=== PATIENT | female | born 1950 | race Caucasian/White ===

== ENCOUNTER → 2018-03-02 | Day surgery (SDC) | payer MEDICARE, BC ==
[2018-03-01 17:40] LABS: BASOPHILS # (AUTO) 0.1 (0.0-0.1); BASOPHILS % 0.8 % (0.0-1.0); EOSINOPHILS # (AUTO) 1.1 (0.0-0.4); EOSINOPHILS % 10.3 % (0.0-6.0); HEMATOCRIT 31.2 % (34.2-44.1); LYMPHOCYTES # (AUTO) 2.9 (1.0-3.2); LYMPHOCYTES % 27.8 % (18.0-39.1); MEAN CORPUSCULAR HEMOGLOBIN 32.2 pg (28-32); MEAN CORPUSCULAR HGB CONC 32.1 g/dL (31-35); MEAN CORPUSCULAR VOLUME 100.3 fL (81-99); MONOCYTES # (AUTO) 0.6 (0.2-0.8); MONOCYTES % 5.5 % (4.4-11.3); NEUTROPHILS # (AUTO) 5.8 (2.1-6.9); NEUTROPHILS % 55.3 % (38.7-80.0); PLATELET COUNT 241 x10e3/uL (140-360); RED BLOOD COUNT 3.11 x10e6/uL (3.6-5.1)
[2018-03-01 18:00] LABS: ANION GAP 17.1 mmol/L (8-16); CALCIUM 8.3 mg/dL (8.4-10.2); CREATININE, SERUM 2.28 mg/dL (0.57-1.11); POTASSIUM 3.1 mmol/L (3.5-5.1)
[2018-03-01 18:18] LABS: INR 1.73
[2018-03-01 18:19] LABS: PARTIAL THROMBOPLASTIN TIME 38.3 seconds (23.8-35.5)
[~2018-03-02] VITALS: Ht 168.9 cm; Wt 97.5 kg
[~2018-03-02] MED LIST: ALLOPURINOL100 MG PO; AMIODARONE HCL200 MG PO; ATORVASTATIN CA20 MG PO; LISINOPRIL10 MG PO; LOPID600 MG PO; METOPROLOL SUCC50 MG PO; MIDAZOLAM HCL 2 MG/2 ML VIAL ONE; OMEPRAZOLE20 MG PO; PROPOFOL IV EMULSION 10 MG/ML 20 ML VIAL ONE; VITAMIN D1000 UNI1 PO; XARELTO20 MG PO; [UNRECOGNIZED DRUG - CODE] PO
[2018-03-02 10:25] VITALS: BP 138/82
--- NOTE | 2018-03-07 12:57 | Operative Report ---
DATE OF PROCEDURE: March 02, 2018 PROCEDURE PERFORMED: Direct-current cardioversion. PREPROCEDURE DIAGNOSIS: Paroxysmal atrial fibrillation. POSTPROCEDURE DIAGNOSIS: Paroxysmal atrial fibrillation. ESTIMATED BLOOD LOSS: 0 mL. SPECIMENS REMOVED: None. PROCEDURE IN DETAIL: After informed consent was obtained, the patient was brought to the cardiac catheterization laboratory in a fasting, nonsedated state. The patient received deep sedation with anesthesia with propofol. After adequate anesthesia, the patient underwent synchronized direct-current cardioversion at 200 joules, with prompt voodoo of normal sinus rhythm. The patient did not require transesophageal echocardiography as she has been on anticoagulation for approximately 2 months. The patient tolerated the procedure well with no immediate complications. She was transported back to her room in stable condition. Job#: [id number]
== END | disposition home or self-care (01) ==
LOC: CATH LAB 09:49
PROVIDERS: ATTEND Internal Medicine Cardiovascular Disease
DX: I48.0 Paroxysmal atrial fibrillation (principal); E11.22 Type 2 diabetes mellitus with diabetic chronic kidney disease; I12.9 Hypertensive chronic kidney disease with stage 1 through stage 4 chronic kidney disease, or unspecified chronic kidney disease; N18.4 Chronic kidney disease, stage 4 (severe); E78.2 Mixed hyperlipidemia; G47.33 Obstructive sleep apnea (adult) (pediatric); K21.9 Gastro-esophageal reflux disease without esophagitis; K44.9 Diaphragmatic hernia without obstruction or gangrene; Z01.810 Encounter for preprocedural cardiovascular examination; Z01.812 Encounter for preprocedural laboratory examination; Z79.02 Long term (current) use of antithrombotics/antiplatelets; Z68.34 Body mass index [BMI] 34.0-34.9, adult; Z87.891 Personal history of nicotine dependence; Z82.49 Family history of ischemic heart disease and other diseases of the circulatory system; Z83.3 Family history of diabetes mellitus
CPT/HCPCS: 36415; 80048; 85025; 85610; 85730; 92960; 93005; J2250

== ENCOUNTER 2019-09-03 10:13 | Observation (INO) | payer MEDICARE, BC ==
[~2019-09-03] VITALS: Ht 167.6 cm; Wt 118.1 kg
[~2019-09-03 10:13] MED LIST changes: -MIDAZOLAM HCL 2 MG/2 ML VIAL ONE; -PROPOFOL IV EMULSION 10 MG/ML 20 ML VIAL ONE
--- OUTSIDE RECORDS SUMMARY | 2019-09-03 10:16 | XMS REPORT ---
[facility] Address Unknown Phone Unavailable Care Team Providers Care Wildlife Removal Specialist Name Role Phone DAVIN ARMENDARIZ Unavailable Unavailable Payers Payer Name Policy Type Policy Number Effective Date Expiration Date Problems This patient has no known problems. Allergies, Adverse Reactions, Alerts Allergy Name Allergy Type Status Severity Reaction(s) Onset Date Inactive Date Treating Clinician Comments Penicillins DA Active 2018-11-24 00:00:00 morphine DA Active 2018-11-24 00:00:00 meperidine DA Active 2018-11-24 00:00:00 avocado DA [facility] 2018-11-24 00:00:00 avocado FA [facility] 2018-11-24 00:00:00 Medications This patient has no known medications. Results Test Description Test Time Test Comments Text Results Atomic Results Result Comments RENAL FUNCTION PANEL 2019-07-02 08:25:00 SODIUM (test code=NA) 139 mmol/L 136-145 POTASSIUM (test code=K) 4.6 mmol/L 3.5-5.1 CHLORIDE (test code=CL) 108.0 mmol/L 98-107 CARBON DIOXIDE (test code=CO2) 23.0 mmol/L 21-32 ANION GAP (test code=GAP) 12.6 10-20 GLUCOSE (test code=GLU) 128 mg/dL 74-106 BLOOD UREA NITROGEN (test code=BUN) 29 mg/dL 7-18 CREATININE (test code=CREAT) 2.40 mg/dL 0.55-1.02 Note change in reference range due to change in reagent. ALBUMIN (test code=ALB) 3.8 g/dL 3.4-5.0 CALCIUM (test code=CA) 9.1 mg/dL 8.5-10.1 PHOSPHORUS (test code=PHOS) 3.5 mg/dL 2.5-4.9 RENAL FUNCTION [id number] 08:20:00* Test Item Value Reference Range Comments SODIUM (test code=NA) 139 mmol/L 136-145 POTASSIUM (test code=K) 4.6 mmol/L 3.5-5.1 CHLORIDE (test code=CL) 108.0 mmol/L 98-107 CARBON DIOXIDE (test code=CO2) mmol/L 21-32 ANION GAP (test code=GAP) 10-20 GLUCOSE (test code=GLU) mg/dL 74-106 BLOOD UREA NITROGEN (test code=BUN) mg/dL 7-18 CREATININE (test code=CREAT) mg/dL 0.55-1.02 ALBUMIN (test code=ALB) g/dL 3.4-5.0 CALCIUM (test code=CA) mg/dL 8.5-10.1 PHOSPHORUS (test code=PHOS) mg/dL 2.5-4.9 RENAL FUNCTION [id number] 20:06:00* Test Item Value Reference Range Comments SODIUM (test code=NA) 142 mmol/L 136-145 POTASSIUM (test code=K) 4.4 mmol/L 3.5-5.1 CHLORIDE (test code=CL) 109.0 mmol/L 98-107 CARBON DIOXIDE (test code=CO2) 22.0 mmol/L 21-32 ANION GAP (test code=GAP) 15.4 10-20 GLUCOSE (test code=GLU) 83 mg/dL 74-106 BLOOD UREA NITROGEN (test code=BUN) 29 mg/dL 7-18 CREATININE (test code=CREAT) 2.28 mg/dL 0.55-1.02 Note change in reference range due to change in reagent. ALBUMIN (test code=ALB) 3.8 g/dL 3.4-5.0 CALCIUM (test code=CA) 8.8 mg/dL 8.5-10.1 PHOSPHORUS (test code=PHOS) 3.1 mg/dL 2.5-4.9 URIC [id number] 20:06:00* Test Item Value Reference Range Comments URIC ACID (test code=URIC) 5.5 mg/dL 2.6-7.2 VITD,25 OH [id number] 20:06:00* Test Item Value Reference Range Comments VITAMIN D 25-HYDROXY (test code=VITD25) 43 ng/mL () Reference Range:All Ages: Target levels 30 - 100Test performed at: [facility] [address] [address] VITD,25-OH, D2 (test code=CUON00N6) 6.0 ng/mL () VITD,25-OH, D3 (test code=ZVPR76J7) 37 ng/mL () Performed At: [facility] [place], [place] [id number] Wing MD Ph:[phone] RENAL FUNCTION [id number] 15:22:00* Test Item Value Reference Range Comments SODIUM (test code=NA) 142 mmol/L 136-145 POTASSIUM (test code=K) 4.4 mmol/L 3.5-5.1 CHLORIDE (test code=CL) 109.0 mmol/L 98-107 CARBON DIOXIDE (test code=CO2) 22.0 mmol/L 21-32 ANION GAP (test code=GAP) 15.4 10-20 GLUCOSE (test code=GLU) 83 mg/dL 74-106 BLOOD UREA NITROGEN (test code=BUN) 29 mg/dL 7-18 CREATININE (test code=CREAT) 2.28 mg/dL 0.55-1.02 Note change in reference range due to change in reagent. ALBUMIN (test code=ALB) 3.8 g/dL 3.4-5.0 CALCIUM (test code=CA) 8.8 mg/dL 8.5-10.1 PHOSPHORUS (test code=PHOS) 3.1 mg/dL 2.5-4.9 URIC [id number] 15:22:00* Test Item Value Reference Range Comments URIC ACID (test code=URIC) 5.5 mg/dL 2.6-7.2 VITD,25 OH [id number] 15:22:00* Test Item Value Reference Range Comments VITAMIN D 25-HYDROXY (test code=VITD25) ng/mL 30-100 VITD,25-OH, D2 (test code=CCCD72I1) ng/mL VITD,25-OH, D3 (test code=ALFD95H9) ng/mL RENAL FUNCTION [id number] 15:10:00* Test Item Value Reference Range Comments SODIUM (test code=NA) 142 mmol/L 136-145 POTASSIUM (test code=K) 4.4 mmol/L 3.5-5.1 CHLORIDE (test code=CL) 109.0 mmol/L 98-107 CARBON DIOXIDE (test code=CO2) mmol/L 21-32 ANION GAP (test code=GAP) 10-20 GLUCOSE (test code=GLU) mg/dL 74-106 BLOOD UREA NITROGEN (test code=BUN) mg/dL 7-18 CREATININE (test code=CREAT) mg/dL 0.55-1.02 ALBUMIN (test code=ALB) g/dL 3.4-5.0 CALCIUM (test code=CA) mg/dL 8.5-10.1 PHOSPHORUS (test code=PHOS) mg/dL 2.5-4.9 URIC [id number] 15:10:00* Test Item Value Reference Range Comments URIC ACID (test code=URIC) mg/dL 2.6-7.2 VITD,25 OH [id number] 15:10:00* Test Item Value Reference Range Comments VITAMIN D 25-HYDROXY (test code=VITD25) ng/mL 30-100 VITD,25-OH, D2 (test code=OMQD82R7) ng/mL VITD,25-OH, D3 (test code=GFIH97H9) ng/mL PTH INTACT [id number] 12:36:00* Test Item Value Reference Range Comments CALCIUM (test code=CA) 9.2 mg/dL 8.5-10.1 PARATHYROID HORMONE INTACT (test code=PARAI) 255.40 pgram/mL 8.4-88 UR PROTEIN/CREATININE [id number] 12:23:00* Test Item Value Reference Range Comments UR PROTEIN RANDOM (test code=PROTU) 210.6 mg/dL 0.0-11.9 Protein levels may be falsely elevated in patients withelevated level of aminoglycoside antibiotics in CSF and inhighly concentrated urine specimens. If false elevation issuspected, contact lab for alternated testing technique. UR CREATININE RANDOM (test code=CREATU) 120.0 mg/dL 30-125 PROTEIN/CREATININE RATIO (test code=P/CRATIO) 1.76 RATIO 0.0-0.20 PTH INTACT [id number] 12:01:00* Test Item Value Reference Range Comments CALCIUM (test code=CA) 9.2 mg/dL 8.5-10.1 PARATHYROID HORMONE INTACT (test code=PARAI) pgram/mL 8.4-88 CBC W/AUTO [id number] 10:40:00* Test Item Value Reference Range Comments WHITE BLOOD CELL (test code=WBC) 6.2 K/mm3 4.5-12.5 RED BLOOD CELL (test code=RBC) 3.31 mill/mm3 3.7-5.2 HEMOGLOBIN (test code=HGB) 10.3 gram/dL 11.5-15.5 HEMATOCRIT (test code=HCT) 33.7 % 36.0-46.0 MEAN CELL VOLUME (test code=MCV) 101.8 fL 80-98 MEAN CELL HGB (test code=MCH) 31.1 picogram 27.0-33.0 MEAN CELL HGB CONCETRATION (test code=MCHC) 30.6 gram/dL 33.0-36.0 RED CELL DISTRIBUTION WIDTH (test code=RDW) 13.2 % 11.6-16.2 RED CELL DISTRIBUTION WIDTH SD (test code=RDW-SD) 48.9 fL 37.0-51.0 PLATELET COUNT (test code=PLT) 241 K/mm3 150-450 MEAN PLATELET VOLUME (test code=MPV) 12.9 fL 6.7-11.0 NEUTROPHIL % (test code=NT%) 62.4 % 39.0-69.0 IMMATURE GRANULOCYTE % (test code=IG%) 0.3 % 0.0-5.0 LYMPHOCYTE % (test code=LY%) 21.9 % 25.0-55.0 MONOCYTE % (test code=MO%) 7.4 % 0.0-10.0 EOSINOPHIL % (test code=EO%) 7.7 % 0.0-5.0 BASOPHIL % (test code=BA%) 0.3 % 0.0-1.0 NUCLEATED RBC % (test code=NRBC%) 0.0 % 0-0 NEUTROPHIL # (test code=NT#) 3.88 K/mm3 1.8-7.7 IMMATURE GRANULOCYTE # (test code=IG#) 0.02 x10 3/uL 0-0.03 LYMPHOCYTE # (test code=LY#) 1.36 K/mm3 1.0-5.0 MONOCYTE # (test code=MO#) 0.46 K/mm3 0-0.8 EOSINOPHIL # (test code=EO#) 0.48 K/mm3 0.0-0.5 BASOPHIL # (test code=BA#) 0.02 K/mm3 0.0-0.2 NUCLEATED RBC # (test code=NRBC#) 0.00 K/mm3 0.0-0.1 [id number] 04:53:00* Test Item Value Reference Range Comments HEMOGLOBIN (test code=HGB) 9.9 gram/dL 11.5-15.5 [id number] 04:53:00* Test Item Value Reference Range Comments HEMATOCRIT (test code=HCT) 31.2 % 36.0-46.0 HGB [id number] 18:09:00* Test Item Value Reference Range Comments HEMOGLOBIN (test code=HGB) 9.8 gram/dL 11.5-15.5 HEMATOCRIT (test code=HCT) 30.2 % 36.0-46.0 PROTHROMBIN [id number] 17:00:00* Test Item Value Reference Range Comments PROTHROMBIN TIME PATIENT (test code=PTP) 13.5 seconds 9.0-14.0 INTERNATIONAL NORMAL RATIO (test code=INR) 1.2 0.8-1.2 The therapeutic range for oral anticoagulant therapy formost indications is an international normalized ratio (INR)of between 2.0 and 3.0. The recommended therapeutic INRrange for various clinical situations is listed below: Clinical Situation INR range Pulmonary e mbolism treatment (2.0-3.0)Venous thrombosis treatmentVenous thrombosis prophylaxis (high risk surgery)Prevention of systemic embolism from: Acute myocardial infarction Valvular heart disease Atrial fibrillation Mechanical prosthetic heart valves (2.5-3.5) IS PATIENT ON ANTICOAGULANTS? NSPECIMEN COMMENTS: STATCOMMENTS TO RENTAL COUNTER CLERK: STATCB W/AUTO [id number] 16:54:00* Test Item Value Reference Range Comments WHITE BLOOD CELL (test code=WBC) 7.7 K/mm3 4.5-12.5 RED BLOOD CELL (test code=RBC) 3.15 mill/mm3 3.7-5.2 HEMOGLOBIN (test code=HGB) 10.0 gram/dL 11.5-15.5 HEMATOCRIT (test code=HCT) 31.8 % 36.0-46.0 MEAN CELL VOLUME (test code=MCV) 101.0 fL 80-98 MEAN CELL HGB (test code=MCH) 31.7 picogram 27.0-33.0 MEAN CELL HGB CONCETRATION (test code=MCHC) 31.4 gram/dL 33.0-36.0 RED CELL DISTRIBUTION WIDTH (test code=RDW) 13.5 % 11.6-16.2 RED CELL DISTRIBUTION WIDTH SD (test code=RDW-SD) 49.3 fL 37.0-51.0 PLATELET COUNT (test code=PLT) 258 K/mm3 150-450 MEAN PLATELET VOLUME (test code=MPV) 13.1 fL 6.7-11.0 NEUTROPHIL % (test code=NT%) 66.1 % 39.0-69.0 IMMATURE GRANULOCYTE % (test code=IG%) 0.5 % 0.0-5.0 LYMPHOCYTE % (test code=LY%) 19.6 % 25.0-55.0 MONOCYTE % (test code=MO%) 7.0 % 0.0-10.0 EOSINOPHIL % (test code=EO%) 6.1 % 0.0-5.0 BASOPHIL % (test code=BA%) 0.7 % 0.0-1.0 NUCLEATED RBC % (test code=NRBC%) 0.0 % 0-0 NEUTROPHIL # (test code=NT#) 5.06 K/mm3 1.8-7.7 IMMATURE GRANULOCYTE # (test code=IG#) 0.04 x10 3/uL 0-0.03 LYMPHOCYTE # (test code=LY#) 1.50 K/mm3 1.0-5.0 MONOCYTE # (test code=MO#) 0.54 K/mm3 0-0.8 EOSINOPHIL # (test code=EO#) 0.47 K/mm3 0.0-0.5 BASOPHIL # (test code=BA#) 0.05 K/mm3 0.0-0.2 NUCLEATED RBC # (test code=NRBC#) 0.00 K/mm3 0.0-0.1 SPECIMEN COMMENTS: STATCOMMENTS TO RENTAL COUNTER CLERK: STATCOMPREHENSIVE METABOLIC [id number] 16:52:00* Test Item Value Reference Range Comments SODIUM (test code=NA) 141 mmol/L 136-145 POTASSIUM (test code=K) 4.5 mmol/L 3.5-5.1 CHLORIDE (test code=CL) 109.0 mmol/L 98-107 CARBON DIOXIDE (test code=CO2) 24.0 mmol/L 21-32 ANION GAP (test code=GAP) 12.5 10-20 GLUCOSE (test code=GLU) 114 mg/dL 74-106 BLOOD UREA NITROGEN (test code=BUN) 32 mg/dL 7-18 GLOMERULAR FILTRATION RATE (test code=GFR) 20 mL/min >=60 Estimated GFR by using Modified MDRD formula.Chronic kidney disease is defined as either kidney damageor GFR <60 mL/min/1.73 m2 for >3 months. CREATININE (test code=CREAT) 2.40 mg/dL 0.55-1.02 Note change in reference range due to change in reagent. BUN/CREATININE RATIO (test code=BUN/CREA) 13.3 10-20 TOTAL PROTEIN (test code=PROT) 7.5 gram/dL 6.4-8.2 ALBUMIN (test code=ALB) 3.5 g/dL 3.4-5.0 GLOBULIN (test code=GLOB) 4.0 gram/dL 2.7-4.2 ALBUMIN/GLOBULIN RATIO (test code=A/G) 0.9 0.75-1.50 CALCIUM (test code=CA) 8.7 mg/dL 8.5-10.1 BILIRUBIN TOTAL (test code=BILT) 0.20 mg/dL 0.0-1.0 SGOT/AST (test code=AST) 18 IUnit/L 15-37 SGPT/ALT (test code=ALT) 20 IUnit/L 12-78 ALKALINE PHOSPHATASE TOTAL (test code=ALKP) 80 IUnit/L 45-117 Note change in reference range due to change in reagent. SPECIMEN COMMENTS: STATCOMMENTS TO RENTAL COUNTER CLERK: STATCOMPREHENSIVE METABOLIC [id number] 16:48:00* Test Item Value Reference Range Comments SODIUM (test code=NA) 141 mmol/L 136-145 POTASSIUM (test code=K) 4.5 mmol/L 3.5-5.1 CHLORIDE (test code=CL) 109.0 mmol/L 98-107 CARBON DIOXIDE (test code=CO2) mmol/L 21-32 ANION GAP (test code=GAP) 10-20 GLUCOSE (test code=GLU) mg/dL 74-106 BLOOD UREA NITROGEN (test code=BUN) mg/dL 7-18 GLOMERULAR FILTRATION RATE (test code=GFR) mL/min >=60 CREATININE (test code=CREAT) mg/dL 0.55-1.02 BUN/CREATININE RATIO (test code=BUN/CREA) 10-20 TOTAL PROTEIN (test code=PROT) gram/dL 6.4-8.2 ALBUMIN (test code=ALB) g/dL 3.4-5.0 GLOBULIN (test code=GLOB) gram/dL 2.7-4.2 ALBUMIN/GLOBULIN RATIO (test code=A/G) 0.75-1.50 CALCIUM (test code=CA) mg/dL 8.5-10.1 BILIRUBIN TOTAL (test code=BILT) mg/dL 0.0-1.0 SGOT/AST (test code=AST) IUnit/L 15-37 SGPT/ALT (test code=ALT) IUnit/L 12-78 ALKALINE PHOSPHATASE TOTAL (test code=ALKP) IUnit/L 45-117 SPECIMEN COMMENTS: STATCOMMENTS TO RENTAL COUNTER CLERK: STATCOMPREHENSIVE METABOLIC [id number] 16:48:00* Test Item Value Reference Range Comments SODIUM (test code=NA) 141 mmol/L 136-145 POTASSIUM (test code=K) 4.5 mmol/L 3.5-5.1 CHLORIDE (test code=CL) 109.0 mmol/L 98-107 CARBON DIOXIDE (test code=CO2) mmol/L 21-32 ANION GAP (test code=GAP) 10-20 GLUCOSE (test code=GLU) mg/dL 74-106 BLOOD UREA NITROGEN (test code=BUN) mg/dL 7-18 GLOMERULAR FILTRATION RATE (test code=GFR) mL/min >=60 CREATININE (test code=CREAT) mg/dL 0.55-1.02 BUN/CREATININE RATIO (test code=BUN/CREA) 10-20 TOTAL PROTEIN (test code=PROT) gram/dL 6.4-8.2 ALBUMIN (test code=ALB) g/dL 3.4-5.0 GLOBULIN (test code=GLOB) gram/dL 2.7-4.2 ALBUMIN/GLOBULIN RATIO (test code=A/G) 0.75-1.50 CALCIUM (test code=CA) mg/dL 8.5-10.1 BILIRUBIN TOTAL (test code=BILT) mg/dL 0.0-1.0 SGOT/AST (test code=AST) IUnit/L 15-37 SGPT/ALT (test code=ALT) IUnit/L 12-78 ALKALINE PHOSPHATASE TOTAL (test code=ALKP) IUnit/L 45-117 SPECIMEN COMMENTS: STATCOMMENTS TO RENTAL COUNTER CLERK: STAT- XR CHEST 1 [id number] 08:44:00 FAX: Sean Schwartz [phone] [place]: [address] St: REG Name: ROLANDO FONSECA [facility] : [birth year] Age/S: 68/F Nabeel [facility] Unit #: [id number] Loc: [place] [address] Phys: Haroon Foreman MD Acct: [id number] Dis Date: Status: REG [facility] PHONE #: [phone] Exam Date: 11/28/2018813 FAX #: [phone] Reason: line placement EXAMS: CPT CODE: [id number] XR CHEST 1 V 17035 HISTORY: Line placement. COMPARISON: None available. Right Port-A-Cath with the tip pr ojected over the SVC from a subclavian approach. No pneumothorax. No acute infiltrates, effusion or congestion is noted. Mild scarring. Cardiomegaly. IMPRESSION: Right sub clavian Port-A-Cath with the tip projected over the SVC without pneumoth orax. No acute infiltrates, effusion or congestion. * * at 0844 Reported and signed by: Juan Luis Spring M.D. CC: Sean Nguyen DO Technologist: Monica munoz RT(R) Trnscrd Date/Time/By: 11/28/2018 (0 844) : By: [email or web address] Orig Print D/T: S: 11/28/2018 (0847) PAGE 1 Signed Report [id number] 07:23:00* Test Item Value Reference Range Comments GLUBED (test code=GLUBED) 107 mg/dL 74-106 Performed by certified bending frame operator at [facility] BASIC METABOLIC [id number] 14:26:00* Test Item Value Reference Range Comments SODIUM (test code=NA) 142 mmol/L 136-145 POTASSIUM (test code=K) 4.4 mmol/L 3.5-5.1 CHLORIDE (test code=CL) 106.0 mmol/L 98-107 CARBON DIOXIDE (test code=CO2) 25.0 mmol/L 21-32 ANION GAP (test code=GAP) 15.4 10-20 GLUCOSE (test code=GLU) 108 mg/dL 74-106 BLOOD UREA NITROGEN (test code=BUN) 29 mg/dL 7-18 GLOMERULAR FILTRATION RATE (test code=GFR) 20 mL/min >=60 Estimated GFR by using Modified MDRD formula.Chronic kidney disease is defined as either kidney damageor GFR <60 mL/min/1.73 m2 for >3 months. CREATININE (test code=CREAT) 2.40 mg/dL 0.55-1.02 Note change in reference range due to change in reagent. BUN/CREATININE RATIO (test code=BUN/CREA) 12.1 10-20 CALCIUM (test code=CA) 9.2 mg/dL 8.5-10.1 BASIC METABOLIC [id number] 13:58:00* Test Item Value Reference Range Comments SODIUM (test code=NA) mmol/L 136-145 POTASSIUM (test code=K) mmol/L 3.5-5.1 CHLORIDE (test code=CL) mmol/L 98-107 CARBON DIOXIDE (test code=CO2) 25.0 mmol/L 21-32 ANION GAP (test code=GAP) 10-20 GLUCOSE (test code=GLU) 108 mg/dL 74-106 BLOOD UREA NITROGEN (test code=BUN) 29 mg/dL 7-18 GLOMERULAR FILTRATION RATE (test code=GFR) mL/min >=60 CREATININE (test code=CREAT) mg/dL 0.55-1.02 BUN/CREATININE RATIO (test code=BUN/CREA) 10-20 CALCIUM (test code=CA) 9.2 mg/dL 8.5-10.1 CBC W/AUTO [id number] 12:16:00* Test Item Value Reference Range Comments WHITE BLOOD CELL (test code=WBC) 7.5 K/mm3 4.5-12.5 RED BLOOD CELL (test code=RBC) 3.52 mill/mm3 3.7-5.2 HEMOGLOBIN (test code=HGB) 11.1 gram/dL 11.5-15.5 HEMATOCRIT (test code=HCT) 35.6 % 36.0-46.0 MEAN CELL VOLUME (test code=MCV) 101.1 fL 80-98 MEAN CELL HGB (test code=MCH) 31.5 picogram 27.0-33.0 MEAN CELL HGB CONCETRATION (test code=MCHC) 31.2 gram/dL 33.0-36.0 RED CELL DISTRIBUTION WIDTH (test code=RDW) 13.6 % 11.6-16.2 RED CELL DISTRIBUTION WIDTH SD (test code=RDW-SD) 50.7 fL 37.0-51.0 PLATELET COUNT (test code=PLT) 296 K/mm3 150-450 MEAN PLATELET VOLUME (test code=MPV) 13.0 fL 6.7-11.0 NEUTROPHIL % (test code=NT%) 62.3 % 39.0-69.0 IMMATURE GRANULOCYTE % (test code=IG%) 0.4 % 0.0-5.0 LYMPHOCYTE % (test code=LY%) 22.2 % 25.0-55.0 MONOCYTE % (test code=MO%) 6.3 % 0.0-10.0 EOSINOPHIL % (test code=EO%) 8.4 % 0.0-5.0 BASOPHIL % (test code=BA%) 0.4 % 0.0-1.0 NUCLEATED RBC % (test code=NRBC%) 0.0 % 0-0 NEUTROPHIL # (test code=NT#) 4.68 K/mm3 1.8-7.7 IMMATURE GRANULOCYTE # (test code=IG#) 0.03 x10 3/uL 0-0.03 LYMPHOCYTE # (test code=LY#) 1.67 K/mm3 1.0-5.0 MONOCYTE # (test code=MO#) 0.47 K/mm3 0-0.8 EOSINOPHIL # (test code=EO#) 0.63 K/mm3 0.0-0.5 BASOPHIL # (test code=BA#) 0.03 K/mm3 0.0-0.2 NUCLEATED RBC # (test code=NRBC#) 0.00 K/mm3 0.0-0.1 MANUAL DIFF REQUIRED (test code=MDIFF) NO, ONLY SCAN NEEDED DIFFERENTIAL [id number] 12:16:00* Test Item Value Reference Range Comments STAIN ACCEPTABILITY (test code=STN ACCEPTABLE) STAIN ACCEPTABLE PLATELET ESTIMATE (test code=PLTEST) ADEQUATE PLATELET MORPHOLOGY (test code=PLTMORPH) NORMAL CBC W/AUTO [id number] 12:11:00* Test Item Value Reference Range Comments WHITE BLOOD CELL (test code=WBC) 7.5 K/mm3 4.5-12.5 RED BLOOD CELL (test code=RBC) 3.52 mill/mm3 3.7-5.2 HEMOGLOBIN (test code=HGB) 11.1 gram/dL 11.5-15.5 HEMATOCRIT (test code=HCT) 35.6 % 36.0-46.0 MEAN CELL VOLUME (test code=MCV) 101.1 fL 80-98 MEAN CELL HGB (test code=MCH) 31.5 picogram 27.0-33.0 MEAN CELL HGB CONCETRATION (test code=MCHC) 31.2 gram/dL 33.0-36.0 RED CELL DISTRIBUTION WIDTH (test code=RDW) 13.6 % 11.6-16.2 RED CELL DISTRIBUTION WIDTH SD (test code=RDW-SD) 50.7 fL 37.0-51.0 PLATELET COUNT (test code=PLT) 296 K/mm3 150-450 MEAN PLATELET VOLUME (test code=MPV) 13.0 fL 6.7-11.0 NEUTROPHIL % (test code=NT%) 62.3 % 39.0-69.0 IMMATURE GRANULOCYTE % (test code=IG%) 0.4 % 0.0-5.0 LYMPHOCYTE % (test code=LY%) 22.2 % 25.0-55.0 MONOCYTE % (test code=MO%) 6.3 % 0.0-10.0 EOSINOPHIL % (test code=EO%) 8.4 % 0.0-5.0 BASOPHIL % (test code=BA%) 0.4 % 0.0-1.0 NUCLEATED RBC % (test code=NRBC%) 0.0 % 0-0 NEUTROPHIL # (test code=NT#) 4.68 K/mm3 1.8-7.7 IMMATURE GRANULOCYTE # (test code=IG#) 0.03 x10 3/uL 0-0.03 LYMPHOCYTE # (test code=LY#) 1.67 K/mm3 1.0-5.0 MONOCYTE # (test code=MO#) 0.47 K/mm3 0-0.8 EOSINOPHIL # (test code=EO#) 0.63 K/mm3 0.0-0.5 BASOPHIL # (test code=BA#) 0.03 K/mm3 0.0-0.2 NUCLEATED RBC # (test code=NRBC#) 0.00 K/mm3 0.0-0.1 MANUAL DIFF REQUIRED (test code=MDIFF) NO, ONLY SCAN NEEDED DIFFERENTIAL [id number] 12:11:00* Test Item Value Reference Range Comments STAIN ACCEPTABILITY (test code=STN ACCEPTABLE) STAIN ACCEPTABLE POLYCHROMASIA (test code=POLC) PLATELET ESTIMATE (test code=PLTEST) ADEQUATE PLATELET MORPHOLOGY (test code=PLTMORPH) NORMAL CBC W/AUTO [id number] 11:22:00* Test Item Value Reference Range Comments WHITE BLOOD CELL (test code=WBC) 7.5 K/mm3 4.5-12.5 RED BLOOD CELL (test code=RBC) 3.52 mill/mm3 3.7-5.2 HEMOGLOBIN (test code=HGB) 11.1 gram/dL 11.5-15.5 HEMATOCRIT (test code=HCT) 35.6 % 36.0-46.0 MEAN CELL VOLUME (test code=MCV) 101.1 fL 80-98 MEAN CELL HGB (test code=MCH) 31.5 picogram 27.0-33.0 MEAN CELL HGB CONCETRATION (test code=MCHC) 31.2 gram/dL 33.0-36.0 RED CELL DISTRIBUTION WIDTH (test code=RDW) 13.6 % 11.6-16.2 RED CELL DISTRIBUTION WIDTH SD (test code=RDW-SD) 50.7 fL 37.0-51.0 PLATELET COUNT (test code=PLT) 296 K/mm3 150-450 MEAN PLATELET VOLUME (test code=MPV) 13.0 fL 6.7-11.0 NEUTROPHIL % (test code=NT%) 62.3 % 39.0-69.0 IMMATURE GRANULOCYTE % (test code=IG%) 0.4 % 0.0-5.0 LYMPHOCYTE % (test code=LY%) 22.2 % 25.0-55.0 MONOCYTE % (test code=MO%) 6.3 % 0.0-10.0 EOSINOPHIL % (test code=EO%) 8.4 % 0.0-5.0 BASOPHIL % (test code=BA%) 0.4 % 0.0-1.0 NUCLEATED RBC % (test code=NRBC%) 0.0 % 0-0 NEUTROPHIL # (test code=NT#) 4.68 K/mm3 1.8-7.7 IMMATURE GRANULOCYTE # (test code=IG#) 0.03 x10 3/uL 0-0.03 LYMPHOCYTE # (test code=LY#) 1.67 K/mm3 1.0-5.0 MONOCYTE # (test code=MO#) 0.47 K/mm3 0-0.8 EOSINOPHIL # (test code=EO#) 0.63 K/mm3 0.0-0.5 BASOPHIL # (test code=BA#) 0.03 K/mm3 0.0-0.2 NUCLEATED RBC # (test code=NRBC#) 0.00 K/mm3 0.0-0.1 MANUAL DIFF REQUIRED (test code=MDIFF) NO, ONLY SCAN NEEDED DIFFERENTIAL [id number] 11:22:00* Test Item Value Reference Range Comments STAIN ACCEPTABILITY (test code=STN ACCEPTABLE) CABOT RINGS (test code=CAB) MORPHOLOGY COMMENT (test code=MOC) PLATELET ESTIMATE (test code=PLTEST) PLATELET MORPHOLOGY (test code=PLTMORPH) CBC W/AUTO [id number] 11:22:00* Test Item Value Reference Range Comments WHITE BLOOD CELL (test code=WBC) 7.5 K/mm3 4.5-12.5 RED BLOOD CELL (test code=RBC) 3.52 mill/mm3 3.7-5.2 HEMOGLOBIN (test code=HGB) 11.1 gram/dL 11.5-15.5 HEMATOCRIT (test code=HCT) 35.6 % 36.0-46.0 MEAN CELL VOLUME (test code=MCV) 101.1 fL 80-98 MEAN CELL HGB (test code=MCH) 31.5 picogram 27.0-33.0 MEAN CELL HGB CONCETRATION (test code=MCHC) 31.2 gram/dL 33.0-36.0 RED CELL DISTRIBUTION WIDTH (test code=RDW) 13.6 % 11.6-16.2 RED CELL DISTRIBUTION WIDTH SD (test code=RDW-SD) 50.7 fL 37.0-51.0 PLATELET COUNT (test code=PLT) 296 K/mm3 150-450 MEAN PLATELET VOLUME (test code=MPV) 13.0 fL 6.7-11.0 NEUTROPHIL % (test code=NT%) 62.3 % 39.0-69.0 IMMATURE GRANULOCYTE % (test code=IG%) 0.4 % 0.0-5.0 LYMPHOCYTE % (test code=LY%) 22.2 % 25.0-55.0 MONOCYTE % (test code=MO%) 6.3 % 0.0-10.0 EOSINOPHIL % (test code=EO%) 8.4 % 0.0-5.0 BASOPHIL % (test code=BA%) 0.4 % 0.0-1.0 NUCLEATED RBC % (test code=NRBC%) 0.0 % 0-0 NEUTROPHIL # (test code=NT#) 4.68 K/mm3 1.8-7.7 IMMATURE GRANULOCYTE # (test code=IG#) 0.03 x10 3/uL 0-0.03 LYMPHOCYTE # (test code=LY#) 1.67 K/mm3 1.0-5.0 MONOCYTE # (test code=MO#) 0.47 K/mm3 0-0.8 EOSINOPHIL # (test code=EO#) 0.63 K/mm3 0.0-0.5 BASOPHIL # (test code=BA#) 0.03 K/mm3 0.0-0.2 NUCLEATED RBC # (test code=NRBC#) 0.00 K/mm3 0.0-0.1 MANUAL DIFF REQUIRED (test code=MDIFF) NO, ONLY SCAN NEEDED DIFFERENTIAL [id number] 11:22:00* Test Item Value Reference Range Comments STAIN ACCEPTABILITY (test code=STN ACCEPTABLE) CABOT RINGS (test code=CAB) MORPHOLOGY COMMENT (test code=MOC) PLATELET ESTIMATE (test code=PLTEST) PLATELET MORPHOLOGY (test code=PLTMORPH) CBC W/AUTO [id number] 11:22:00* Test Item Value Reference Range Comments WHITE BLOOD CELL (test code=WBC) 7.5 K/mm3 4.5-12.5 RED BLOOD CELL (test code=RBC) 3.52 mill/mm3 3.7-5.2 HEMOGLOBIN (test code=HGB) 11.1 gram/dL 11.5-15.5 HEMATOCRIT (test code=HCT) 35.6 % 36.0-46.0 MEAN CELL VOLUME (test code=MCV) 101.1 fL 80-98 MEAN CELL HGB (test code=MCH) 31.5 picogram 27.0-33.0 MEAN CELL HGB CONCETRATION (test code=MCHC) 31.2 gram/dL 33.0-36.0 RED CELL DISTRIBUTION WIDTH (test code=RDW) 13.6 % 11.6-16.2 RED CELL DISTRIBUTION WIDTH SD (test code=RDW-SD) 50.7 fL 37.0-51.0 PLATELET COUNT (test code=PLT) 296 K/mm3 150-450 MEAN PLATELET VOLUME (test code=MPV) 13.0 fL 6.7-11.0 NEUTROPHIL % (test code=NT%) 62.3 % 39.0-69.0 IMMATURE GRANULOCYTE % (test code=IG%) 0.4 % 0.0-5.0 LYMPHOCYTE % (test code=LY%) 22.2 % 25.0-55.0 MONOCYTE % (test code=MO%) 6.3 % 0.0-10.0 EOSINOPHIL % (test code=EO%) 8.4 % 0.0-5.0 BASOPHIL % (test code=BA%) 0.4 % 0.0-1.0 NUCLEATED RBC % (test code=NRBC%) 0.0 % 0-0 NEUTROPHIL # (test code=NT#) 4.68 K/mm3 1.8-7.7 IMMATURE GRANULOCYTE # (test code=IG#) 0.03 x10 3/uL 0-0.03 LYMPHOCYTE # (test code=LY#) 1.67 K/mm3 1.0-5.0 MONOCYTE # (test code=MO#) 0.47 K/mm3 0-0.8 EOSINOPHIL # (test code=EO#) 0.63 K/mm3 0.0-0.5 BASOPHIL # (test code=BA#) 0.03 K/mm3 0.0-0.2 NUCLEATED RBC # (test code=NRBC#) 0.00 K/mm3 0.0-0.1 MANUAL DIFF REQUIRED (test code=MDIFF) NO, ONLY SCAN NEEDED DIFFERENTIAL [id number] 11:22:00* Test Item Value Reference Range Comments STAIN ACCEPTABILITY (test code=STN ACCEPTABLE) MORPHOLOGY COMMENT (test code=MOC) PLATELET ESTIMATE (test code=PLTEST) PLATELET MORPHOLOGY (test code=PLTMORPH) CBC W/AUTO [id number] 11:22:00* Test Item Value Reference Range Comments WHITE BLOOD CELL (test code=WBC) 7.5 K/mm3 4.5-12.5 RED BLOOD CELL (test code=RBC) 3.52 mill/mm3 3.7-5.2 HEMOGLOBIN (test code=HGB) 11.1 gram/dL 11.5-15.5 HEMATOCRIT (test code=HCT) 35.6 % 36.0-46.0 MEAN CELL VOLUME (test code=MCV) 101.1 fL 80-98 MEAN CELL HGB (test code=MCH) 31.5 picogram 27.0-33.0 MEAN CELL HGB CONCETRATION (test code=MCHC) 31.2 gram/dL 33.0-36.0 RED CELL DISTRIBUTION WIDTH (test code=RDW) 13.6 % 11.6-16.2 RED CELL DISTRIBUTION WIDTH SD (test code=RDW-SD) 50.7 fL 37.0-51.0 PLATELET COUNT (test code=PLT) 296 K/mm3 150-450 MEAN PLATELET VOLUME (test code=MPV) 13.0 fL 6.7-11.0 NEUTROPHIL % (test code=NT%) 62.3 % 39.0-69.0 IMMATURE GRANULOCYTE % (test code=IG%) 0.4 % 0.0-5.0 LYMPHOCYTE % (test code=LY%) 22.2 % 25.0-55.0 MONOCYTE % (test code=MO%) 6.3 % 0.0-10.0 EOSINOPHIL % (test code=EO%) 8.4 % 0.0-5.0 BASOPHIL % (test code=BA%) 0.4 % 0.0-1.0 NUCLEATED RBC % (test code=NRBC%) 0.0 % 0-0 NEUTROPHIL # (test code=NT#) 4.68 K/mm3 1.8-7.7 IMMATURE GRANULOCYTE # (test code=IG#) 0.03 x10 3/uL 0-0.03 LYMPHOCYTE # (test code=LY#) 1.67 K/mm3 1.0-5.0 MONOCYTE # (test code=MO#) 0.47 K/mm3 0-0.8 EOSINOPHIL # (test code=EO#) 0.63 K/mm3 0.0-0.5 BASOPHIL # (test code=BA#) 0.03 K/mm3 0.0-0.2 NUCLEATED RBC # (test code=NRBC#) 0.00 K/mm3 0.0-0.1 MANUAL DIFF REQUIRED (test code=MDIFF) NO, ONLY SCAN NEEDED DIFFERENTIAL [id number] 11:22:00* Test Item Value Reference Range Comments STAIN ACCEPTABILITY (test code=STN ACCEPTABLE) CABOT RINGS (test code=CAB) MORPHOLOGY COMMENT (test code=MOC) PLATELET ESTIMATE (test code=PLTEST) PLATELET MORPHOLOGY (test code=PLTMORPH) RENAL FUNCTION [id number] 10:08:00* Test Item Value Reference Range Comments SODIUM (test code=NA) 140 mmol/L 136-145 POTASSIUM (test code=K) 4.6 mmol/L 3.5-5.1 CHLORIDE (test code=CL) 109.0 mmol/L 98-107 CARBON DIOXIDE (test code=CO2) 22.0 mmol/L 21-32 ANION GAP (test code=GAP) 13.6 10-20 GLUCOSE (test code=GLU) 105 mg/dL 74-106 BLOOD UREA NITROGEN (test code=BUN) 29 mg/dL 7-18 CREATININE (test code=CREAT) 2.40 mg/dL 0.55-1.02 Note change in reference range due to change in reagent. ALBUMIN (test code=ALB) 3.8 g/dL 3.4-5.0 CALCIUM (test code=CA) 9.0 mg/dL 8.5-10.1 PHOSPHORUS (test code=PHOS) 4.0 mg/dL 2.5-4.9 URIC [id number] 10:08:00* Test Item Value Reference Range Comments URIC ACID (test code=URIC) 4.8 mg/dL 2.6-7.2 FE W/TOTAL IRON BINDING CAP.2018-08-28 10:08:00* Test Item Value Reference Range Comments SERUM IRON (test code=IRON) 67 ug/dL 50-175 TOTAL IRON BINDING CAPACITY (test code=TIBC) 428 mcg/dL 250-450 IRON SATURATION (test code=FESAT) 15.65 % 13-45 [id number] 10:08:00* Test Item Value Reference Range Comments FERRITIN (test code=BARRERA) 19 ng/mL 8-388 RENAL FUNCTION [id number] 09:57:00* Test Item Value Reference Range Comments SODIUM (test code=NA) 140 mmol/L 136-145 POTASSIUM (test code=K) 4.6 mmol/L 3.5-5.1 CHLORIDE (test code=CL) 109.0 mmol/L 98-107 CARBON DIOXIDE (test code=CO2) mmol/L 21-32 ANION GAP (test code=GAP) 10-20 GLUCOSE (test code=GLU) mg/dL 74-106 BLOOD UREA NITROGEN (test code=BUN) mg/dL 7-18 CREATININE (test code=CREAT) mg/dL 0.55-1.02 ALBUMIN (test code=ALB) g/dL 3.4-5.0 CALCIUM (test code=CA) mg/dL 8.5-10.1 PHOSPHORUS (test code=PHOS) mg/dL 2.5-4.9 URIC [id number] 09:57:00* Test Item Value Reference Range Comments URIC ACID (test code=URIC) mg/dL 2.6-7.2 FE W/TOTAL IRON BINDING CAP.2018-08-28 09:57:00* Test Item Value Reference Range Comments SERUM IRON (test code=IRON) ug/dL 50-175 TOTAL IRON BINDING CAPACITY (test code=TIBC) mcg/dL 250-450 IRON SATURATION (test code=FESAT) % 13-45 [id number] 09:57:00* Test Item Value Reference Range Comments FERRITIN (test code=BARRERA) ng/mL 8-388 CBC W/AUTO [id number] 09:50:00* Test Item Value Reference Range Comments WHITE BLOOD CELL (test code=WBC) 7.3 K/mm3 4.5-12.5 RED BLOOD CELL (test code=RBC) 3.16 mill/mm3 3.7-5.2 HEMOGLOBIN (test code=HGB) 9.8 gram/dL 11.5-15.5 HEMATOCRIT (test code=HCT) 31.9 % 36.0-46.0 MEAN CELL VOLUME (test code=MCV) 100.9 fL 80-98 MEAN CELL HGB (test code=MCH) 31.0 picogram 27.0-33.0 MEAN CELL HGB CONCETRATION (test code=MCHC) 30.7 gram/dL 33.0-36.0 RED CELL DISTRIBUTION WIDTH (test code=RDW) 14.1 % 11.6-16.2 RED CELL DISTRIBUTION WIDTH SD (test code=RDW-SD) 52.0 fL 37.0-51.0 PLATELET COUNT (test code=PLT) 283 K/mm3 150-450 MEAN PLATELET VOLUME (test code=MPV) 13.4 fL 6.7-11.0 NEUTROPHIL % (test code=NT%) 63.5 % 39.0-69.0 IMMATURE GRANULOCYTE % (test code=IG%) 0.4 % 0.0-5.0 LYMPHOCYTE % (test code=LY%) 22.4 % 25.0-55.0 MONOCYTE % (test code=MO%) 5.5 % 0.0-10.0 EOSINOPHIL % (test code=EO%) 7.5 % 0.0-5.0 BASOPHIL % (test code=BA%) 0.7 % 0.0-1.0 NUCLEATED RBC % (test code=NRBC%) 0.0 % 0-0 NEUTROPHIL # (test code=NT#) 4.64 K/mm3 1.8-7.7 IMMATURE GRANULOCYTE # (test code=IG#) 0.03 x10 3/uL 0-0.03 LYMPHOCYTE # (test code=LY#) 1.64 K/mm3 1.0-5.0 MONOCYTE # (test code=MO#) 0.40 K/mm3 0-0.8 EOSINOPHIL # (test code=EO#) 0.55 K/mm3 0.0-0.5 BASOPHIL # (test code=BA#) 0.05 K/mm3 0.0-0.2 NUCLEATED RBC # (test code=NRBC#) 0.00 K/mm3 0.0-0.1 MANUAL DIFF REQUIRED (test code=MDIFF) NO MRI BRAIN [id number] 16:25:00 [place] [address] Patient Name: ROLANDO SINHA MR #: [id number] : 1950 Age/Sex: 67/F Req #: [id number] Adm Physician: DAVIN ARMENDARIZ MD Ordered by: SKINNY MONTESINOS MD Report #: [id number] Location: [facility] Room/Bed: [place] [address] Procedure: MRI/MRI BRAIN WO Exam Date: Exam Time: RE PORT STATUS: Signed Examination: MRI BRAIN WITHOUT CONTRAST History: Near s yncope. Comparison studies: Head CT dated 02/25/2018 Technique: Sagittal T2; axial DWI, FLAIR, GRE or SWI, T1, Coronal FLAIR. Intravenous contrast: No ne Findings: Scalp: No abnormal signal. No masses. Bone marrow: Nor mal in signal intensity. Brain volume: Adequate for age. No volume loss. Ventricles: Normal in size and configuration. No hydrocephalus. Extra- axial spaces: No abnormalities. Parenchyma: There are many punctate are as of T2/FLAIR hyperintensity in the periventricular and subcortical white mat ter, nonspecific. A chronic lacunar infarct is demonstrated in the lateral rig ht cerebellum. No masses, hemorrhage, or acute vascular insults. Suprasel lar and sellar region: No abnormalities. Craniocervical junction: No abnormali ties. The foramen magnum is patent. No Chiari malformations. Vessels: Normal flow-voids in the arteries and sinuses. Additional findings:None. IMP RESSION: 1. No acute abnormalities, unchanged when compared to prior head CT from 02/25/2018 and when accounting for differences in technique. 2. Minim al chronic microvascular ischemic change. 3. Chronic lacunar infarct in the l ateral right cerebellum. Signed by: Dr. Joel Ramirez M.D. on 02/26/2018 4:30 PM Dictated By: JOEL MONK MD 1630 Transcribed By: MACY on 08/14 1630 COPY TO: SKINNY MONTESINOS MD CT BRAIN [id number] 20:03:00 [place] [address] Patient Name: ROLANDO SINHA MR #: [id number] : 1950 Age/Sex: 67/F Req #: [id number] Adm Physician: Ordered by: SKINNY MONTESINOS MD Report #: [id number] Location: Room/Bed: Procedure: [id number] CT/CT BRAIN WO Exam Date: 02/25/18 Exam Time: 1926 REPORT STATUS: Signed EXAMINATION: Head CT HISTORY: Weakness, near syncope, atrial fibrillat ion. COMPARISON: None. TECHNIQUE: Multidetector axial images were obtained w ithout contrast from the foramen magnum to the vertex . The images were recons tructed using brain and bone algorithms. Thin section brain images were refor matted into coronal and sagittal planes. Intravenous contrast: None. Imag e quality: Motion/streaking artifact limits the evaluation of the skull base a nd posterior cranial fossa. Dose modulation, iterative reconstruction, and/ or weight based adjustment of the mA/kV was utilized to reduce the radiation d ose to as low as reasonably achievable. FINDINGS: Parenchyma : 1. Few scattered hypodensities in the supratentorial white matter, most li elvin nonspecific microvascular ischemic changes. 2. No mass or hemorrhage. No CT evidence of acute territorial vascular insult. Extra-axia l spaces:No abnormal density. No extra-axial fluid collections Brain vol ume: Normal for age. Ventricles: No hydrocephalus or displacement. Arteries: No density suggestive of thrombus. Dural sinuses: No abnor mal density. Extra-axial spaces: No abnormal density. Foramen ma gnum: No mass, Chiari malformation, or basilar invagination. Sella: No o bvious mass. Paranasal/mastoid sinuses: Imaged portions unremarkable. Skull/Scalp: No lytic or blastic lesions. No fractures. IMPRESSION: 1. No acute intracranial hemorrhage or CT evidence of acute territorial cortical infarct. 2. Minimal chronic microvascular ischemic changes. Signed by: Dr. Radha Chan M.D. on 02/25/2018 8:04 PM Dictated By: RADHA CHAN MD 03 Transcribed By: MACY on 02/25/182003 COPY TO: SKINNY MONTESINOS MD CHEST SINGLE (PORTABLE)2018-02-25 19:44:00 [address] [place], [place] [address] Patient Name: ROLANDO SINHA MR #: [id number] : 1950 Age/Sex: 67/F Req #: [id number] Adm Physician: Ordered by: SKINNY MONTESINOS MD Report #: [id number] Location: ER Room/Bed: Procedure: [id number] DX/CHEST SINGLE (PORTABLE) Exam Date: 02/25/18 Exam Time: [address] ATUS: Signed EXAM: CHEST SINGLE (PORTABLE), AP 1 view INDICATION: Totz like she was going to pass out COMPARISON: None FINDINGS: LINES/TUBES: None LUNGS: No consolidations or edema. PLEURA: No effusions or pneumotho rax. HEART AND MEDIASTINUM: Normal size and contour. BONES AND SOFT TI SSUES: No acute findings. IMPRESSION: No acute thoracic abnormality. Signed by: Dr. Lenny Min M.D. on 02/25/2018 7:45 PM Dictat ed By: LENNY MIN MD 44 Transcribed By: MACY on 02/25/181944 COPY TO: HOMERO MONTESINOS MD
[2019-09-03] MEDS ORDERED: ASPIRIN 81 MG CHEW TAB PO STA (10:37)
[2019-09-03] MEDS ORDERED: LISINOPRIL-HCT1 EAC2 PO (10:40)
[2019-09-03] MEDS ORDERED: CALCITRIOL0.25 MCG PO (10:40)
[2019-09-03] MEDS ORDERED: ELIQUIS5 MG PO (10:40)
[2019-09-03] MEDS ORDERED: AMLODIPINE BESY10 MG PO (10:40)
[2019-09-03] MEDS ORDERED: METOPROLOL SUCC25 MG PO (10:40)
[2019-09-03] MEDS ORDERED: METOPROLOL TARTRATE 25 MG TAB PO ONE (10:45)
[2019-09-03] MEDS ORDERED: SODIUM CHLORIDE 0.9% 500ML 500 ML IV ONE (10:45)
[2019-09-03 11:03] LABS: BASOPHILS % 0.5 % (0.0-1.0); EOSINOPHILS # (AUTO) 0.5 (0.0-0.4); EOSINOPHILS % 7.8 % (0.0-6.0); HEMATOCRIT 32.9 % (34.2-44.1); HEMOGLOBIN 10.7 g/dL (12.0-16.0); LYMPHOCYTES # (AUTO) 1.3 (1.0-3.2); LYMPHOCYTES % 21.6 % (18.0-39.1); MEAN CORPUSCULAR HEMOGLOBIN 32.2 pg (28-32); MEAN CORPUSCULAR HGB CONC 32.5 g/dL (31-35); MEAN CORPUSCULAR VOLUME 99.1 fL (81-99); MONOCYTES # (AUTO) 0.4 (0.2-0.8); NEUTROPHILS # (AUTO) 3.7 (2.1-6.9); NEUTROPHILS % 63.8 % (38.7-80.0); PLATELET COUNT 223 x10e3/uL (140-360); RED BLOOD COUNT 3.32 x10e6/uL (3.6-5.1); RED CELL DISTRIBUTION WIDTH 12.8 % (11.7-14.4)
[2019-09-03 11:14] LABS: INR 1.07; PROTHROMBIN TIME 14.6 seconds (11.9-14.5)
[2019-09-03 11:15] LABS: PARTIAL THROMBOPLASTIN TIME 35.3 seconds (23.8-35.5)
[2019-09-03 11:19] LABS: CLARITY,URINE CLEAR (CLEAR); COLOR,URINE YELLOW (YELLOW); LEUKOCYTE ESTERASE ,URINE NEGATIVE (NEGATIVE); NITRITE,URINE NEGATIVE (NEGATIVE)
[2019-09-03 11:20] LABS: BILIRUBIN,URINE NEGATIVE (NEGATIVE); KETONES,URINE NEGATIVE (NEGATIVE); PROTEIN,URINE DIPSTICK 2+ (NEGATIVE); URINE UROBILINOGEN 0.2 mg/dL (0.2 - 1)
[2019-09-03 11:22] LABS: ALANINE AMINOTRANSFERASE 24 IU/L (0-55); ALBUMIN 3.8 g/dL (3.5-5.0); ALBUMIN/GLOBULIN RATIO 0.9 (0.8-2.0); ALKALINE PHOSPHATASE 65 IU/L (40-150); ANION GAP 17.5 mmol/L (8-16); BLOOD UREA NITROGEN 33 mg/dL (7-26); BUN/CREATININE RATIO 12 (6-25); CALCIUM 9.9 mg/dL (8.4-10.2); CARBON DIOXIDE 21 mmol/L (22-29); CHLORIDE 107 mmol/L (98-107); CREATINE KINASE 74 IU/L (29-168); CREATININE, SERUM 2.71 mg/dL (0.57-1.11); EST GLOMERULAR FILTRATION RATE 17 ML/MIN (60-); GLUCOSE 128 mg/dL (74-118); MAGNESIUM 1.7 MG/DL (1.3-2.1); POTASSIUM 4.5 mmol/L (3.5-5.1); SODIUM 141 mmol/L (136-145)
--- NOTE | 2019-09-03 11:31 | Diagnostic Imaging Report ---
EXAMINATION: CHEST SINGLE (PORTABLE) INDICATION: Palpitations COMPARISON: Chest radiograph 02/25/2018 FINDINGS: LINES/TUBES:Right chest port with tip in the superior vena cava. EKG leads overlie the chest. LUNGS:The lungs are well-inflated. No focal consolidation or pulmonary edema. PLEURA:No pleural effusion or pneumothorax. MEDIASTINUM:The cardiomediastinal silhouette appears normal in size and shape. Atherosclerotic calcifications of the thoracic aorta. BONES/SOFT TISSUES:No acute osseous injury. ABDOMEN:No free air under the diaphragm. IMPRESSION: No focal pneumonia or pulmonary edema. Signed by: Tristan Lay MD on 09/03/2019 11:29 AM
[2019-09-03 11:33] LABS: BACTERIA,URINE FEW /HPF; EPITHELIAL CELLS,URINE RARE /LPF; RBC,URINE 0-5 /HPF (0-5); WBC,URINE (MAN) 0-5 /HPF (0-5)
[2019-09-03 11:41] LABS: THYROID STIMULATING HORMONE 9.432 uIU/mL (0.350-4.940)
[2019-09-03] MEDS ORDERED: ONDANSETRON HCL INJ 2MG/ML 2ML 2 MG/ML VIAL IV PRN (12:00)
[2019-09-03] MEDS ORDERED: DEXTROSE 50% SYRINGE 50 ML IV PRN (12:00)
[2019-09-03 12:48] LABS: FREE THYROXINE INDEX 1.5428 (1.4-3.8); THYROID STIMULATING HORMONE 9.818 uIU/mL (0.350-4.940)
[2019-09-03] MEDS: INSULIN LISPRO 100 UNIT/1 ML 3ML VIAL SQ SCH ×2 (17:52→21:00)
[2019-09-03] MEDS: METOPROLOL SUCCINATE 50 MG TAB XL PO SCH (19:30)
[2019-09-03 19:44] LABS: CREATINE KINASE MB 0.8 ng/mL (0-5.0)
[2019-09-03] MEDS: APIXABAN 5 MG TABLET PO SCH (19:55)
[2019-09-03] MEDS: AMIODARONE HCL 200 MG TAB PO SCH (19:55)
--- NOTE | 2019-09-03 20:44 | NUR ---
Tele box put on patient at this time.
--- NOTE | 2019-09-03 20:48 | NUR ---
Patient arrived to the unit via wheelchair as a new admit from ED. Pt brought in room 299 with diagnosis of chest pain, CKD, History of A-fib. Pt alert and oriented x3. No distress or discomfort noted. Daughter at bedside. Pt ambulatory with assist using walker prn. Pt with tele monitor. Call mahoney within reach.
[2019-09-03 21:00] VITALS: BP 118/68
--- NOTE | 2019-09-03 21:00 | NUR ---
Fingerstick blood glucose = 217. Pt refused 2 units of Humalog per sliding scale. Pt will talk to Dr. Wilner Hart tomorrow to confirm on diabetes diagnosis.
[2019-09-03] MEDS ORDERED: ZOFRAN4 MG PO (23:06)
[2019-09-03] MEDS ORDERED: VITAMIN B-121000 MCG PO (23:06)
[2019-09-04] VITALS (8 sets, daily range): BP systolic 117–147; BP diastolic 60–80
--- NOTE | 2019-09-04 00:59 | Consultation ---
DATE OF CONSULTATION: 09/03/2019 Cardiology Consultation REQUESTING PHYSICIAN: Ashok Hart MD. REASON FOR CONSULTATION: Chest pressure and palpitations. HISTORY OF PRESENT ILLNESS: This is a 69-year-old woman with history of atrial fibrillation, status post JD cardioversion; hypertension; hyperlipidemia; mild coronary artery disease; and chronic kidney disease; who presented with complaints of palpitations and chest pressure. The patient reports that she has been feeling poorly for the last 2 weeks with cough and sinus congestion. Today, she noted palpitations starting around 09:00 a.m., associated with shortness of breath as well as chest heaviness. She endorses chronic lower extremity edema with prolonged sitting, which she attributes to prior surgical procedures and states she has chronic orthopnea. She does have sleep apnea, but is unable to tolerate treatment with CPAP. She denies any sick contacts, any fever or chills. Denies any recent travel or surgeries. REVIEW OF SYSTEMS: Negative except as per HPI. PAST MEDICAL HISTORY: 1. Paroxysmal atrial fibrillation, status post JD cardioversion. 2. Hypertension. 3. Hyperlipidemia. 4. Mild coronary artery disease. 5. Chronic kidney disease. 6. Obesity. PAST SURGICAL HISTORY: 1. Cholecystectomy. 2. Hysterectomy. ALLERGIES: PLEASE SEE EMR. MEDICATIONS: Please see medication list. SOCIAL HISTORY: No tobacco. FAMILY HISTORY: Pertinent for heart disease in the family. PHYSICAL EXAMINATION: VITAL SIGNS: Temperature 98.8 degrees, pulse 106, respiratory rate 19, blood pressure 135/74, and oxygen saturation 98%. GENERAL: Morbidly obese woman, in no acute distress. Well developed, well nourished. HEENT: Normocephalic, atraumatic. Pupils equal. No sclerae icterus. NECK: Supple. No thyromegaly or cervical lymphadenopathy. No carotid bruits. LUNGS: Clear to auscultation bilaterally. No wheezes or crackles. CARDIOVASCULAR: Tachycardic, but regular. No murmur. Normal S1 and S2. ABDOMEN: Soft, nontender. EXTREMITIES: Trace edema. NEUROLOGIC: Nonfocal exam. LABORATORY DATA: WBC 5.79, hemoglobin 10.7, hematocrit 32.9, and platelets 223. Sodium 141, potassium 4.5, chloride 107, CO2 of 21, BUN 33, creatinine 2.71. Troponin less than 0.001. BNP 131. EKG, normal sinus rhythm, nonspecific ST abnormalities. Chest x-ray, no focal pneumonia or pulmonary edema. IMPRESSION: 1. Palpitations. 2. Chest pressure. 3. Atrial fibrillation, status post JD cardioversion. 4. Mild coronary artery disease on cardiac catheterization. 5. Hypertension. 6. Hyperlipidemia. 7. Chronic kidney disease. 8. Obesity. RECOMMENDATIONS: Trend cardiac markers to rule out myocardial infarction. If she rules out, no further cardiac intervention indicated at this time given her recent cardiac catheterization. Continue amiodarone, increase metoprolol. Continue Eliquis for CVA prophylaxis. Monitor the patient on telemetry for further recurrence of her atrial fibrillation. Blood pressure is acceptable. Thank you for this consult. We will continue to follow. Lisa Connolly MD ABS/MODL /[id number]
[2019-09-04 06:24] LABS: BASOPHILS % 0.5 % (0.0-1.0); EOSINOPHILS # (AUTO) 0.5 (0.0-0.4); EOSINOPHILS % 6.1 % (0.0-6.0); HEMATOCRIT 33.3 % (34.2-44.1); HEMOGLOBIN 10.5 g/dL (12.0-16.0); LYMPHOCYTES # (AUTO) 1.5 (1.0-3.2); LYMPHOCYTES % 20.6 % (18.0-39.1); MEAN CORPUSCULAR HEMOGLOBIN 31.8 pg (28-32); MEAN CORPUSCULAR HGB CONC 31.5 g/dL (31-35); MEAN CORPUSCULAR VOLUME 100.9 fL (81-99); MONOCYTES # (AUTO) 0.4 (0.2-0.8); MONOCYTES % 5.2 % (4.4-11.3); NEUTROPHILS # (AUTO) 4.9 (2.1-6.9); NEUTROPHILS % 67.5 % (38.7-80.0); PLATELET COUNT 222 x10e3/uL (140-360); RED CELL DISTRIBUTION WIDTH 12.6 % (11.7-14.4)
[2019-09-04 06:53] LABS: ALBUMIN 3.4 g/dL (3.5-5.0); ALBUMIN/GLOBULIN RATIO 0.9 (0.8-2.0); ANION GAP 12.1 mmol/L (8-16); CALCIUM 9.7 mg/dL (8.4-10.2); CHOL/HDL RATIO 5.7 (3.0-3.6); CREATININE, SERUM 2.67 mg/dL (0.57-1.11); POTASSIUM 4.1 mmol/L (3.5-5.1)
[2019-09-04] MEDS: INSULIN LISPRO 100 UNIT/1 ML 3ML VIAL SQ SCH ×4 (07:30→21:50)
[2019-09-04 07:35] LABS: CREATINE KINASE MB < 1.00 ng/mL (0-4.3)
[2019-09-04 07:40] LABS: CREATINE KINASE 65 IU/L (29-168)
[2019-09-04] MEDS: ASPIRIN 81 MG ENTERIC COATED PO SCH (10:10)
[2019-09-04] MEDS: AMIODARONE HCL 200 MG TAB PO SCH (10:10)
[2019-09-04] MEDS: APIXABAN 5 MG TABLET PO SCH ×2 (10:11→17:17)
[2019-09-04] MEDS: METOPROLOL SUCCINATE 50 MG TAB XL PO SCH (10:11)
[2019-09-04] MEDS ORDERED: FUROSEMIDE INJ 10 MG/ML 2 ML VIAL IV ONE (11:45)
--- NOTE | 2019-09-04 12:32 | Progress Note ---
DATE: 09/04/2019 Cardiology Progress Note SUBJECTIVE: The patient denies chest pain. She is complaining of dyspnea on exertion. OBJECTIVE: VITAL SIGNS: Temperature 98.4 degrees, pulse 104, respiratory rate 19, blood pressure 123/60, and oxygen saturation 97% on 2 L nasal cannula. GENERAL: Awake and alert, in no acute distress. LUNGS: Clear to auscultation bilaterally. No wheeze or crackles. CARDIOVASCULAR: Tachycardic, but regular. No murmur. Normal S1 and S2. ABDOMEN: Soft and nontender. EXTREMITIES: Trace edema. CARDIAC MEDICATIONS: 1. Apixaban 5 mg p.o. b.i.d. 2. Amiodarone 200 mg p.o. daily. 3. Metoprolol succinate 50 mg p.o. daily. LABORATORY DATA: WBC 7.3, hemoglobin 10.5, hematocrit 33.3, and platelets 222. Sodium 139, potassium 4.1, chloride 108, CO2 of 23, BUN 34, and creatinine 2.67. TELEMETRY: Personally reviewed and interpreted, revealing a sinus tachycardia. IMPRESSION: 1. Palpitations. 2. Chest pressure. 3. Atrial fibrillation, status post JD cardioversion. 4. Mild coronary artery disease on cardiac catheterization. 5. Hypertension. 6. Hyperlipidemia. 7. Chronic kidney disease. 8. Obesity. RECOMMENDATIONS: The patient has ruled out for myocardial function with serial cardiac biomarkers. No further cardiac evaluation is indicated at this time given her recent cardiac catheterization. Continue amiodarone. Given her palpitations, increase metoprolol. Recommend she follow up with Dr. Heriberto Nguyen, as an outpatient for telemetry monitoring. Continue Eliquis for CVA prophylaxis and due to the complaint of dyspnea on exertion, we will have the patient evaluate for hypoxia with ambulation. Monitor on telemetry for further recurrence of atrial fibrillation. Start IV Lasix given her elevated BNP and dyspnea on exertion. Blood pressure is well controlled. Thank you for this consult. We will continue to follow. Lisa Connolly MD ABS/MODL /[id number]
--- NOTE | 2019-09-04 17:54 | NUR ---
Nutrition Screen Note RD Recommendation for Physician: -Recommend cardiac diet Plan of Care: RD following, monitoring for tolerance and adequacy Nutrition reason for involvement: Nutrition Risk Trigger MST 2 Primary Diagnose(s): chest pain, CKD, history of afib PMH: afib s/p JD cardioversion, HTN, HLD, CAD, CKD, obesity Ht: 66 in Wt:260 lb BMI: 42 kg/m2 IBW:[address] Assessment: (09/04/19) Chart reviewed. Labs and meds reviewed. Pt is a 69 year old female admitted with chest pain, CKD, and has a history of afib. Pt reports she has been eating >50% of her meals. Pt mentioned she has gained 60 lbs in the past 2 years. No N/V or chewing/swallowing issues. Pt was not interested in diet education materials at time of visit. Will continue to monitor. Current Diet: 1800 kcal ADA Malnutrition Evaluation (09/04/2019) The patient does not meet criteria for a specified degree of malnutrition at this time. Will re-evaluate at follow-up as appropriate. Diet Education Needs Assessment: Pt was not interested in diet education materials Nutrition Care Level: low Signed: Farida Trammell, RD, LD
--- NOTE | 2019-09-04 19:24 | NUR ---
report given to oncoming nurse, walking rounds complete.
--- NOTE | 2019-09-04 19:30 | NUR ---
Patient visited in room during nursing rounds. Patient alert and oriented x3. No distress or discomfort noted. Pt ambulatory in room with standby assist prn. Call mahoney within reach. Will monitor pt closely.
[2019-09-05] VITALS: BP 127/75
[2019-09-05 04:00] VITALS: BP 109/59
[2019-09-05] MEDS ORDERED: LEVOTHYROXINE SODIUM 25 MCG TABLET PO SCH (06:00)
[2019-09-05 06:33] LABS: BASOPHILS # (AUTO) 0.1 (0.0-0.1); BASOPHILS % 0.8 % (0.0-1.0); EOSINOPHILS # (AUTO) 0.4 (0.0-0.4); EOSINOPHILS % 6.2 % (0.0-6.0); HEMATOCRIT 33.7 % (34.2-44.1); HEMOGLOBIN 10.7 g/dL (12.0-16.0); LYMPHOCYTES # (AUTO) 1.6 (1.0-3.2); LYMPHOCYTES % 25.4 % (18.0-39.1); MEAN CORPUSCULAR HEMOGLOBIN 31.8 pg (28-32); MEAN CORPUSCULAR HGB CONC 31.8 g/dL (31-35); MEAN CORPUSCULAR VOLUME 100.3 fL (81-99); MONOCYTES # (AUTO) 0.4 (0.2-0.8); MONOCYTES % 6.9 % (4.4-11.3); NEUTROPHILS # (AUTO) 3.9 (2.1-6.9); NEUTROPHILS % 60.1 % (38.7-80.0); PLATELET COUNT 214 x10e3/uL (140-360); RED BLOOD COUNT 3.36 x10e6/uL (3.6-5.1); RED CELL DISTRIBUTION WIDTH 12.6 % (11.7-14.4)
[2019-09-05 07:17] LABS: ANION GAP 13.5 mmol/L (8-16); CALCIUM 9.8 mg/dL (8.4-10.2); CREATININE, SERUM 3.04 mg/dL (0.57-1.11); POTASSIUM 4.5 mmol/L (3.5-5.1)
[2019-09-05] MEDS: INSULIN LISPRO 100 UNIT/1 ML 3ML VIAL SQ SCH ×3 (07:30→16:02)
[2019-09-05 07:55] VITALS: BP 116/82
[2019-09-05 08:00] VITALS: BP 116/82
--- NOTE | 2019-09-05 08:24 | NUR ---
OBS DAY 2 SENT TO R1 FOR LOC DETERMINATION. SERIAL CK'S NEG, RECENT HEART CATH PER DR. ALAMO, ELIQUIS AND METOPROLOL FOR AFIB. H/O CKD
[2019-09-05] MEDS: ASPIRIN 81 MG ENTERIC COATED PO SCH (08:30)
[2019-09-05] MEDS: AMIODARONE HCL 200 MG TAB PO SCH (08:30)
[2019-09-05] MEDS: APIXABAN 5 MG TABLET PO SCH ×2 (08:30→16:03)
[2019-09-05] MEDS: METOPROLOL SUCCINATE 50 MG TAB XL PO SCH (08:30)
[2019-09-05] MEDS ORDERED: FUROSEMIDE INJ 10 MG/ML 2 ML VIAL IV SCH (09:00)
[2019-09-05 12:00] VITALS: BP 99/72
[2019-09-05 16:00] VITALS: BP 139/79
--- NOTE | 2019-09-05 16:27 | NUR ---
Dr. Connolly rounding on patient. Per MD, patient can be discharged home and follow up with cut lace machine operator in 1-2 weeks.
[2019-09-05] MEDS ORDERED: ONDANSETRON HCL 4 MG ORAL DISINTEGRATING TAB PO PRN (16:30)
--- NOTE | 2019-09-05 17:10 | NUR ---
Completed O2 Eval. Results were given to Nurse SARAH Phillip.
[2019-09-05] MEDS ORDERED: METOPROLOL SUCC50 MG PO (17:32)
[2019-09-05] MEDS ORDERED: SYNTHROID50 MCG PO (17:33)
--- NOTE | 2019-09-05 17:44 | NUR ---
SPOKE W BILL, SARAH. STATES PT REFUSING TO DC W/O HOME HEALTH. SHE CALLED DR. ARMENDARIZ FOR AN ORDER. OK W HOME W HH. ORDERED SN / PT EVAL AND TREAT. DR. ARMENDARIZ RECOMMENDED [facility]. PT WAS IN AGREEMENT. STATES SHE IS FROM [place] AND SHE ALWAYS HAD A NURSE TO CHECK ON HER. REFERRAL FAXED TO [facility] @ OFF: [phone] / FAX: [phone]
--- NOTE | 2019-09-05 17:51 | NUR ---
HOME HEALTH DISCHARGE NOTE PATIENT ADDRESS WHERE SERVICE WILL BE RECEIVED: [address] [place] [address] PATIENT CONTACT NUMBER: [phone] NAME OF HOME HEALTH COMPANY: [facility] TELEPHONE/FAX NUMBER OF COMPANY: OFF: [phone] / FAX: [phone] SERVICES TO RECEIVE: SKILLED NURSE EVAL AND TREAT, PHYSICAL THERAPY EVAL AND TREAT ANTICIPATED DATE SERVICES WILL BEGIN: 09/06/2019 Please call the company above if you have not received a call to schedule a home visit within 24 hours of discharge.
--- NOTE | 2019-09-05 18:18 | NUR ---
Patient discharged from unit via wheelchair into private auto. AAOX3. Acyanotic on room air. No distress noted. Daughter present as automobile flatbed truck driver.
== END 2019-09-05 18:14 | disposition home health service (06) ==
LOC: ER 10:13 → ERHOLD 12:57 → MED/SURG3 20:54
DX: I48.0 Paroxysmal atrial fibrillation (principal); R07.9 Chest pain, unspecified; R00.2 Palpitations; Z88.5 Allergy status to narcotic agent; Z88.8 Allergy status to other drugs, medicaments and biological substances; Z82.49 Family history of ischemic heart disease and other diseases of the circulatory system; E03.9 Hypothyroidism, unspecified; I12.9 Hypertensive chronic kidney disease with stage 1 through stage 4 chronic kidney disease, or unspecified chronic kidney disease; N18.4 Chronic kidney disease, stage 4 (severe); E66.9 Obesity, unspecified; E78.5 Hyperlipidemia, unspecified; I25.10 Atherosclerotic heart disease of native coronary artery without angina pectoris; E11.22 Type 2 diabetes mellitus with diabetic chronic kidney disease; Z68.41 Body mass index [BMI] 40.0-44.9, adult
CPT/HCPCS: 36415 ×3; 71045; 80048; 80053 ×2; 80061; 81001; 82550 ×2; 82553 ×2; 82948 ×3; 83036; 83735; 83880; 84436; 84443; 84479; 84481; 84484 ×2; 85025 ×3; 85610; 85730; 87086; 93005; 96372; 99284; G0378 ×3; J1940 ×2; J7040

== ENCOUNTER 2019-11-23 14:40 | Inpatient (IN) | payer MEDICARE, BC, OTHER ==
[~2019-11-23] VITALS: Ht 167.6 cm; Wt 117.9 kg
[~2019-11-23 14:40] MED LIST changes: +AMLODIPINE BESY10 MG PO; +CALCITRIOL0.25 MCG PO; +ELIQUIS5 MG PO; +LISINOPRIL-HCT1 EAC2 PO; +METOPROLOL SUCC25 MG PO; +SYNTHROID50 MCG PO; +VITAMIN B-121000 MCG PO; +ZOFRAN4 MG PO
--- OUTSIDE RECORDS SUMMARY | 2019-11-23 14:44 | XMS REPORT ---
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 Protection Inspector Name Role Phone ABDIAS NGUYEN DO PCP SWEET, Mis LAIRD Attphys Unavailable ARMENDARIZ, SOUHEIL Attphys Unavailable ARMENDARIZ, SOUHEIL Admphys Unavailable Payers Payer Name Policy Type Policy Number Effective Date Expiration Date Lucille baird Medicare A & B [id number] 2002 00:00:00 [facility] [id number] [facility] Problems Condition Name Condition Details Condition Category Status Onset Date Resolution Date Last Treatment Date Treating Clinician Comments Source Chronic atrial fibrillation Chronic a-fib Problem Active [facility] Pre-syncope Near syncope Problem Active [facility] Chronic kidney disease CKD (chronic kidney disease) Problem Active [facility] Chest pain Chest pain Problem Active [facility] History of atrial fibrillation History of atrial fibrillation Problem Active [facility] Allergies, Adverse Reactions, Alerts Allergy Name Allergy Type Status Severity Reaction(s) Onset Date Inacti ve Date Treating Clinician Comments Source Penicillins DA Active 2018-11-24 00:00:00 [facility] morphine DA Active 2018-11-24 00:00:00 [facility] meperidine DA Active 2018-11-24 00:00:00 [facility] avocado DA Active SV 2018-11-24 00:00:00 [facility] avocado FA Active SV 2018-11-24 00:00:00 [facility] Morphine Allergy to Substance Active 2018-02-25 00:00:00 [facility] Codeine Allergy to Substance Active 2018-02-25 00:00:00 [facility] Meperidine Allergy to Substance Active 2018-02-25 00:00:00 [facility] Cyclobenzaprine Allergy to Substance Active 2018-02-25 00:0 0:00 [facility] Medications Ordered Medication Name Filled Medication Name Start Date Stop Da te Current Medication? Ordering Clinician Indication Dosage Frequency Signature (SIG) Comments Components Source Allopurinol 100 Mg Tablet Allopurinol 100 Mg Tablet Yes 100 Daily [facility] Amiodarone Hcl 200 Mg Tablet Amiodarone Hcl 200 Mg Tablet Y es 200 Daily [facility] Amlodipine Besylate 10 Mg Tablet Amlodipine Besylate 10 Mg Tablet Yes 10 Daily [facility] Apixaban (Eliquis) 5 Mg Tablet Apixaban (Eliquis) 5 Mg Tablet Yes 5 Twice A Day [facility] Calcitriol 0.25 Mcg Capsule Calcitriol 0.25 Mcg Capsule Yes .25 Daily [facility] Cyanocobalamin (Vitamin B-12) 1,000 Mcg Tab Cyanocobal laughlin (Vitamin B-12) 1,000 Mcg Tab Yes 1000 Daily [facility] Gemfibrozil (Lopid) 600 Mg Tablet Gemfibrozil (Lopid) 600 Mg Tablet Yes 600 Twice A Day [facility] Levothyroxine Sodium (Synthroid) 50 Mcg Tab Levothyrox ine Sodium (Synthroid) 50 Mcg Tab Yes 25 Before Breakfast C HI [facility] Lisinopril/Hydrochlorothiazide (Lisinopril-Hctz 10-12. 5 Mg Tab) 1 Each Tablet Lisinopril/Hydrochlorothiazide (Lisinopril-Hctz 10-12.5 Mg Tab) 1 Each Tablet Yes 1 Daily [facility] Metoprolol Succinate 50 Mg Tab.er.24h Metoprolol Succinate 50 Mg Ta b.er.24h Yes 50 Daily [facility] Omeprazole 20 Mg Capsule. Omeprazole 20 Mg Capsule. Yes 20 Daily [facility] Ondansetron Hcl (Zofran*) 4 Mg Tablet Ondansetron Hcl (Zofran*) 4 M g Tablet Yes 8 Every 8 Hours as needed for Nausea And V omiting [facility] Metoprolol Succinate 25 Mg Tab.er.24h, 25 Mg Oral Meto prolol Succinate 25 Mg Tab.er.24h, 25 Mg Oral 2019-09-05 00:00:00 No 25 D aily [facility] Atorvastatin Calcium 20 Mg Tablet, 20 Mg Oral Atorvast atin Calcium 20 Mg Tablet, 20 Mg Oral 2019-09-03 00:00:00 No 20 Bedtime [facility] Cholecalciferol (Vitamin D3) (Vitamin D) 1,000 [place], [address] Unit Oral Cholecalciferol (Vitamin D3) (Vitamin D) 1,000 Unit Table[place], [address] Unit Oral 2019-09-03 00:00:00 No 52153 Q7days [facility] Lisinopril 10 Mg Tablet, 10 Mg Oral Lisinopril 10 Mg Tablet, 10 Mg Oral 2019-09-03 00:00:00 No 10 Daily [facility] Metoprolol Succinate 50 Mg Tab.er.24h, 100 Mg Oral Met oprolol Succinate 50 Mg Tab.er.24h, 100 Mg Oral 2019-09-03 00:00:00 No 100 Twice A Day [facility] Rivaroxaban (Xarelto) 20 Mg Tablet, 20 Mg Oral Rivarox aban (Xarelto) 20 Mg Tablet, 20 Mg Oral 2019-09-03 00:00:00 No 20 Daily [facility] Metorolsuc , 50 Mg Oral Metorolsuc , 50 Mg Oral 2018-03-01 00:00 :00 No 50 Twice A Day [facility] Cholecalciferol (Vitamin D3) (Vitamin D) 1,000 [place], [address] Unit Oral Cholecalciferol (Vitamin D3) (Vitamin D) 1,000 Unit Tablet, 12769 Unit Oral 2018-02-25 00:00:00 No 66376 Weekly [facility] Procedures This patient has no known procedures. Encounters Start Date/Time End Date/Time Encounter Type Admission Type [facility] Care Department Encounter ID Source 2019-09-03 12:57:00 2019-09-05 18:14:00 Discharged Inpatient (obs) 1 GINA HERNANDEZ [facility] [id number] [facility] 2018-02-25 21:02:00 2018-02-27 16:21:00 Discharged Inpatient (obs) 1 DAVIN ARMENDARIZ [facility] [id number] [facility] Results Test Description Test Time Test Comments Results Result Comments Source Bedside Glucose 2019-09-05 16:04:00 Test Item Bedside Glucose (test code = 43383-2) 146 70-120 H M[id number]-05 07:21:00* Test Item Value Reference Range Interpretation Comments Sodium Level (test code = 2951-2) 140 136-145 [facility] HospitalPotassium [id number] 07:21:00* Test Item Value Reference Range Interpretation Comments Potassium Level (test code = 2823-3) 4.5 3.5-5.1 [facility] HospitalChloride [id number] 07:21:00* Test Item Value Reference Range Interpretation Comments Chloride Level (test code = 2075-0) 107 98-107 [facility] HospitalCarbon Dioxide [id number] 07:21:00* Test Item Value Reference Range Interpretation Comments Carbon Dioxide Level (test code = 2028-9) 24 22-29 [facility] HospitalAnion [id number] 07:21:00* Test Item Value Reference Range Interpretation Comments Anion Gap (test code = 58543-9) 13.5 8-16 [facility] HospitalBlood Urea [id number] 07:21:00* Test Item Value Reference Range Interpretation Comments Blood Urea Nitrogen (test code = 3094-0) 44 7-26 H [facility] HospitalCreatinine2020-03-11 07:21:00* Test Item Value Reference Range Interpretation Comments Creatinine (test code = 2160-0) 3.04 0.57-1.11 H [facility] HospitalBUN/Creatinine [id number] 07:21:00* Test Item Value Reference Range Interpretation Comments BUN/Creatinine Ratio (test code = 3097-3) 14 6-25 [facility] HospitalEstimat Glomerular Filtration Rate 2019-09-05 07:21:00* Test Item Value Reference Range Interpretation Comments Estimat Glomerular Filtration Rate (test code = 271582512) 15 >60 L Ranges were taken from the National Kidney Disease Education Program and the [facility] literature.Reference ranges:60 or greater: Rjeabg06-63 ( for 3 consecutive months): Chronic kidney disease 15 or less: Kidney failureHarris Health System Ben [facility] HospitalGlucose Yyngj9609-23-00 07:21:00* Test Item Value Reference Range Interpretation Comments Glucose Level (test code = FKC5851) 121 74-118 H [facility] HospitalCalcium Ffxck9479-14-38 07:21:00* Test Item Value Reference Range Interpretation Comments Calcium Level (test code = 84863-1) 9.8 8.4-10.2 [facility] HospitalWhite Blood Eyivr7789-74-77 06:38:00* Test Item Value Reference Range Interpretation Comments White Blood Count (test code = 6690-2) 6.42 4.8-10.8 [facility] HospitalRed Blood Muxqr4976-81-40 06:38:00* Test Item Value Reference Range Interpretation Comments Red Blood Count (test code = 789-8) 3.36 3.6-5.1 L [facility] HospitalHemoglobin2020-03-11 06:38:00* Test Item Value Reference Range Interpretation Comments Hemoglobin (test code = 08626-1) 10.7 12.0-16.0 L [facility] HospitalHematocrit2020-03-11 06:38:00* Test Item Value Reference Range Interpretation Comments Hematocrit (test code = 4544-3) 33.7 34.2-44.1 L [facility] HospitalMean Corpuscular Utlvts1475-47-72 06:38:00* Test Item Value Reference Range Interpretation Comments Mean Corpuscular Volume (test code = 787-2) 100.3 81-99 H [facility] HospitalMean Corpuscular Jsnfdzmzll0236-32-16 06:38:00* Test Item Value Reference Range Interpretation Comments Mean Corpuscular Hemoglobin (test code = 785-6) 31.8 28-32 [facility] HospitalMean Corpuscular Hemoglobin Concent 2019-09-05 06:38:00* Test Item Value Reference Range Interpretation Comments Mean Corpuscular Hemoglobin Concent (test code = 786-4) 31.8 31-35 [facility] HospitalRed Cell Distribution [id number] 06:38:00* Test Item Value Reference Range Interpretation Comments Red Cell Distribution Width (test code = 78624-9) 12.6 11.7 -14.4 [facility] HospitalPlatelet Lthxq0684-49-09 06:38:00* Test Item Value Reference Range Interpretation Comments Platelet Count (test code = 777-3) 214 140-360 [facility] HospitalNeutrophils (%) (Auto)2019-09-05 06:38:00 * Test Item Value Reference Range Interpretation Comments Neutrophils (%) (Auto) (test code = 78930-9) 60.1 38.7-80.0 [facility] HospitalLymphocytes (%) (Auto)2019-09-05 06:38:00 * Test Item Value Reference Range Interpretation Comments Lymphocytes (%) (Auto) (test code = 736-9) 25.4 18.0-39.1 [facility] HospitalMonocytes (%) (Auto)2019-09-05 06:38:00* Test Item Value Reference Range Interpretation Comments Monocytes (%) (Auto) (test code = 5905-5) 6.9 4.4-11.3 [facility] HospitalEosinophils (%) (Auto)2019-09-05 06:38:00 * Test Item Value Reference Range Interpretation Comments Eosinophils (%) (Auto) (test code = 713-8) 6.2 0.0-6.0 H [facility] HospitalBasophils (%) (Auto)2019-09-05 06:38:00* Test Item Value Reference Range Interpretation Comments Basophils (%) (Auto) (test code = 706-2) 0.8 0.0-1.0 [facility] HospitalIM GRANULOCYTES %2019-09-05 06:38:00* Test Item Value Reference Range Interpretation Comments IM GRANULOCYTES % (test code = IM GRANULOCYTES %) 0.6 0.0- 1.0 [facility] HospitalNeutrophils # (Auto)2019-09-05 06:38:00* Test Item Value Reference Range Interpretation Comments Neutrophils # (Auto) (test code = 751-8) 3.9 2.1-6.9 [facility] HospitalLymphocytes # (Auto)2019-09-05 06:38:00* Test Item Value Reference Range Interpretation Comments Lymphocytes # (Auto) (test code = 53245-0) 1.6 1.0-3.2 [facility] HospitalMonocytes # (Auto)2019-09-05 06:38:00* Test Item Value Reference Range Interpretation Comments Monocytes # (Auto) (test code = 742-7) 0.4 0.2-0.8 [facility] HospitalEosinophils # (Auto)2019-09-05 06:38:00* Test Item Value Reference Range Interpretation Comments Eosinophils # (Auto) (test code = 711-2) 0.4 0.0-0.4 [facility] HospitalBasophils # (Auto)2019-09-05 06:38:00* Test Item Value Reference Range Interpretation Comments Basophils # (Auto) (test code = 704-7) 0.1 0.0-0.1 [facility] HospitalAbsolute Immature Granulocyte (auto 2019-09-05 06:38:00* Test Item Value Reference Range Interpretation Comments Absolute Immature Granulocyte (auto (beckie t code = Absolute Immature Granulocyte (auto) 0.04 0-0.1 [facility] HospitalHemoglobin A1c Novwpkx7947-86-64 11:41:00 * Test Item Value Reference Range Interpretation Comments Hemoglobin A1c Percent (test code = Hemoglobin A1c Percent) 5.9 4.0-7.0 [facility] HospitalCreatine Larpxx7459-48-47 07:44:00* Test Item Value Reference Range Interpretation Comments Creatine Kinase (test code = 2157-6) 65 29-168 [facility] HospitalCreatine Kinase [id number] 07:36:00* Test Item Value Reference Range Interpretation Comments Creatine Kinase MB (test code = 12540-0) < 1.00 0-4.3 [facility] HospitalTroponin [id number] 07:36:00* Test Item Value Reference Range Interpretation Comments Troponin I (test code = 92544-8) < 0.05 0.0-0.40 [facility] HospitalTotal Lttczfeit9481-66-80 07:07:00* Test Item Value Reference Range Interpretation Comments Total Bilirubin (test code = 1975-2) 0.4 0.2-1.2 [facility] HospitalAspartate Amino Transf (AST/SGOT) 2019-09-04 07:07:00* Test Item Value Reference Range Interpretation Comments Aspartate Amino Transf (AST/SGOT) (test code = Aspartate Amino Transf (AST/SGOT)) 31 5-34 [facility] HospitalAlanine Aminotransferase (ALT/SGPT) 2019-09-04 07:07:00* Test Item Value Reference Range Interpretation Comments Alanine Aminotransferase (ALT/SGPT) (test code = 1742-6) 19 0-55 [facility] HospitalTotal Fdotulm0791-40-23 07:07:00* Test Item Value Reference Range Interpretation Comments Total Protein (test code = 2885-2) 7.2 6.5-8.1 [facility] HospitalAlbumin2020-03-10 07:07:00* Test Item Value Reference Range Interpretation Comments Albumin (test code = 1751-7) 3.4 3.5-5.0 L [facility] HospitalGlobulin2020-03-10 07:07:00* Test Item Value Reference Range Interpretation Comments Globulin (test code = 88136-0) 3.8 2.3-3.5 H [facility] HospitalAlbumin/Globulin Morgy2990-29-00 07:07:00 * Test Item Value Reference Range Interpretation Comments Albumin/Globulin Ratio (test code = 1759-0) 0.9 0.8-2.0 [facility] HospitalAlkaline Ygbeolvfkwq5337-39-86 07:07:00* Test Item Value Reference Range Interpretation Comments Alkaline Phosphatase (test code = 6768-6) 59 40-150 [facility] HospitalTriglycerides Ufxlq8861-28-08 07:07:00* Test Item Value Reference Range Interpretation Comments Triglycerides Level (test code = 2571-8) 184 0-149 H [facility] HospitalCholesterol Wonzi5089-45-04 07:07:00* Test Item Value Reference Range Interpretation Comments Cholesterol Level (test code = 2093-3) 177 0-199 Less than 200 mg/dL Low Yjcb966 - 239 mg/dL Borderline Mgqy378 m g/dl and greater High Risk [facility] HospitalLDL Ehdgaacqiuv0151-10-13 07:07:00* Test Item Value Reference Range Interpretation Comments LDL Cholesterol (test code = 2089-1) 109 60-130 [facility] HospitalHDL Sptrifrzyue0374-20-13 07:07:00* Test Item Value Reference Range Interpretation Comments HDL Cholesterol (test code = 2085-9) 31 40-60 L [facility] HospitalCholesterol/HDL Wqnni6335-66-72 07:07:00 * Test Item Value Reference Range Interpretation Comments Cholesterol/HDL Ratio (test code = 9830-1) 5.7 3.0-3.6 H [facility] HospitalFree Thyroxine Vitmg1099-70-19 12:49:00* Test Item Value Reference Range Interpretation Comments Free Thyroxine Index (test code = 32545-9) 1.5428 1.4-3.8 [facility] HospitalThyroxine (T4)2019-09-03 12:49:00* Test Item Value Reference Range Interpretation Comments Thyroxine (T4) (test code = 3026-2) 5.45 4.5-10.9 Our current method for Total T4 is not recommended for use as the only marker fo r evaluating patients for thyroid disorders.[facility] HospitalTriiodothyronine (T3) Odctrk4909-06-90 12:49:00* Test Item Value Reference Range Interpretation Comments Triiodothyronine (T3) Uptake (test code = 3050-2) 28.31 22.5 -37.0 [facility] HospitalThyroid Stimulating Hormone (TSH) 2019-09-03 12:49:00* Test Item Value Reference Range Interpretation Comments Thyroid Stimulating Hormone (TSH) (test code = 49318-9) 9.818 0.350-4.940 H [facility] HospitalUrine [id number] 11:33:00* Test Item Value Reference Range Interpretation Comments Urine WBC (test code = 5821-4) 0-5 0-5 [facility] HospitalUrine [id number] 11:33:00* Test Item Value Reference Range Interpretation Comments Urine RBC (test code = 50415-7) 0-5 0-5 [facility] HospitalUrine Xssdkyux1316-78-70 11:33:00* Test Item Value Reference Range Interpretation Comments Urine Bacteria (test code = 00715-3) FEW NONE [facility] HospitalUrine Epithelial Vfinc3094-84-24 11:33:00 * Test Item Value Reference Range Interpretation Comments Urine Epithelial Cells (test code = 25473-5) RARE NONE [facility] HospitalB-Type Natriuretic Ssxexsi7467-78-58 11:33:00* Test Item Value Reference Range Interpretation Comments B-Type Natriuretic Peptide (test code = 78784-9) 131.1 0-100 H [facility] HospitalCHEST SINGLE (PORTABLE)2019-09-03 11:28:00 [facility] [address] [place] [address] Patient Name: ROLANDO SINHA MR #: [id number] : 1950 Age/Sex: 69/F Req #: [id number] Adm Physician: Ordered by: GINA HERNANDEZ MD Report #: [id number] Location: ER Room/Bed: Procedure: [id number] DX/FIORELLA ST SINGLE (PORTABLE) Exam Date: 09/03/19 Exam Time: 1105 REPORT STATUS: Signed EXAMI NATION: CHEST SINGLE (PORTABLE) INDICATION: Palpitations COMPARIS ON: Chest radiograph 02/25/2018 FINDINGS: LINES/TUBES:Right chest p ort with tip in the superior vena cava. EKG leads overlie the chest. LUNG S:The lungs are well-inflated. No focal consolidation or pulmonary edema. P LEURA:No pleural effusion or pneumothorax. MEDIASTINUM:The cardiomediastina l silhouette appears normal in size and shape. Atherosclerotic calcifications of the thoracic aorta. BONES/SOFT TISSUES:No acute osseous injury. ABD OMEN:No free air under the diaphragm. IMPRESSION: No focal pneumonia or pulmonary edema. Signed by: Harshad Gooden MD on 09/03/2019 11:29 AM D ictated By: HARSHAD GOODEN MD 1 129 Transcribed By: MACY on 09/03/19 1129 COPY TO: GINA HERNANDEZ MD Magnesium Grcqc6051-63-97 11:23:00* Test Item Value Reference Range Interpretation Comments Magnesium Level (test code = 92646-8) 1.7 1.3-2.1 [facility] HospitalUrine Czpjm9104-14-33 11:20:00* Test Item Value Reference Range Interpretation Comments Urine Color (test code = 5778-6) YELLOW YELLOW [facility] HospitalUrine Iumpshu3276-97-31 11:20:00* Test Item Value Reference Range Interpretation Comments Urine Clarity (test code = 18524-4) CLEAR CLEAR [facility] HospitalUrine Specific Efjyxyk5888-11-36 11:20:00 * Test Item Value Reference Range Interpretation Comments Urine Specific [place] (test code = 5811-5) 1.020 1.010-1.02 5 [facility] HospitalUrine [id number] 11:20:00* Test Item Value Reference Range Interpretation Comments Urine pH (test code = 76740-1) 6.5 5-7 [facility] HospitalUrine Leukocyte Yrzxglkq8665-83-40 11:20:00* Test Item Value Reference Range Interpretation Comments Urine Leukocyte Esterase (test code = 5799-2) NEGATIVE NEGATIVE [facility] HospitalUrine Lmykiwx8275-80-35 11:20:00* Test Item Value Reference Range Interpretation Comments Urine Nitrite (test code = 39238-7) NEGATIVE NEGATIVE [facility] HospitalUrine Lwuqqyl4798-32-19 11:20:00* Test Item Value Reference Range Interpretation Comments Urine Protein (test code = 5804-0) 2+ NEGATIVE H [facility] HospitalUrine Glucose (UA)2019-09-03 11:20:00* Test Item Value Reference Range Interpretation Comments Urine Glucose (UA) (test code = 2349-9) NEGATIVE NEGATIVE [facility] HospitalUrine Ngxtfid4783-68-26 11:20:00* Test Item Value Reference Range Interpretation Comments Urine Ketones (test code = 82233-3) NEGATIVE NEGATIVE [facility] HospitalUrine Qjtxftkrkumi3034-47-53 11:20:00* Test Item Value Reference Range Interpretation Comments Urine Urobilinogen (test code = 68658-5) 0.2 0.2-1 [facility] HospitalUrine Kjoumypea5372-03-63 11:20:00* Test Item Value Reference Range Interpretation Comments Urine Bilirubin (test code = 1978-6) NEGATIVE NEGATIVE [facility] HospitalUrine Rtlal9191-49-73 11:20:00* Test Item Value Reference Range Interpretation Comments Urine Blood (test code = 71018-0) NEGATIVE NEGATIVE [facility] HospitalProthrombin [id number] 11:18:00* Test Item Value Reference Range Interpretation Comments Prothrombin Time (test code = 5902-2) 14.6 11.9-14.5 H [facility] HospitalProthromb Time International Ratio 2019-09-03 11:18:00* Test Item Value Reference Range Interpretation Comments Prothromb Time International Ratio (test code = 6301-6) 1.07 Oral Anticoagulant Therapy INR Values:1. Low Intensity Therapy 1.5 - 2.02 . Moderate Intensity Therapy 2.0 - 3.03. High Intensity Therapy(1) 2.5 - 3. 54. High Intensity Therapy(2) 3.0 - 4.05. Panic Value INR > 5.0 [facility] HospitalActivated Partial Thromboplast Time 2019-09-03 11:18:00* Test Item Value Reference Range Interpretation Comments Activated Partial Thromboplast Time (test code = 93397-5) 35.3 23.8-35.5 [facility] HospitalRENAL FUNCTION [id number] 08:25:00* Test Item Value Reference Range Interpretation Comments SODIUM (test code = NA) 139 mmol/L 136-145 N POTASSIUM (test code = K) 4.6 mmol/L 3.5-5.1 N CHLORIDE (test code = CL) 108.0 mmol/L 98-107 H CARBON DIOXIDE (test code = CO2) 23.0 mmol/L 21-32 N ANION GAP (test code = GAP) 12.6 10-20 N GLUCOSE (test code = GLU) 128 mg/dL 74-106 H BLOOD UREA NITROGEN (test code = BUN) 29 mg/dL 7-18 H CREATININE (test code = CREAT) 2.40 mg/dL 0.55-1.02 H Note change in reference range due to change in reagent. ALBUMIN (test code = ALB) 3.8 g/dL 3.4-5.0 N CALCIUM (test code = CA) 9.1 mg/dL 8.5-10.1 N PHOSPHORUS (test code = PHOS) 3.5 mg/dL 2.5-4.9 N RENAL FUNCTION [id number] 08:20:00* Test Item Value Reference Range Interpretation Comments SODIUM (test code = NA) 139 mmol/L 136-145 N POTASSIUM (test code = K) 4.6 mmol/L 3.5-5.1 N CHLORIDE (test code = CL) 108.0 mmol/L 98-107 H CARBON DIOXIDE (test code = CO2) mmol/L 21-32 ANION GAP (test code = GAP) 10-20 GLUCOSE (test code = GLU) mg/dL 74-106 BLOOD UREA NITROGEN (test code = BUN) mg/dL 7-18 CREATININE (test code = CREAT) mg/dL 0.55-1.02 ALBUMIN (test code = ALB) g/dL 3.4-5.0 CALCIUM (test code = CA) mg/dL 8.5-10.1 PHOSPHORUS (test code = PHOS) mg/dL 2.5-4.9 RENAL FUNCTION [id number] 20:06:00* Test Item Value Reference Range Interpretation Comments SODIUM (test code = NA) 142 mmol/L 136-145 N POTASSIUM (test code = K) 4.4 mmol/L 3.5-5.1 N CHLORIDE (test code = CL) 109.0 mmol/L 98-107 H CARBON DIOXIDE (test code = CO2) 22.0 mmol/L 21-32 N ANION GAP (test code = GAP) 15.4 10-20 N GLUCOSE (test code = GLU) 83 mg/dL 74-106 N BLOOD UREA NITROGEN (test code = BUN) 29 mg/dL 7-18 H CREATININE (test code = CREAT) 2.28 mg/dL 0.55-1.02 H Note change in reference range due to change in reagent. ALBUMIN (test code = ALB) 3.8 g/dL 3.4-5.0 N CALCIUM (test code = CA) 8.8 mg/dL 8.5-10.1 N PHOSPHORUS (test code = PHOS) 3.1 mg/dL 2.5-4.9 N URIC [id number] 20:06:00* Test Item Value Reference Range Interpretation Comments URIC ACID (test code = URIC) 5.5 mg/dL 2.6-7.2 N VITD,25 OH [id number] 20:06:00* Test Item Value Reference Range Interpretation Comments VITAMIN D 25-HYDROXY (test code = VITD25) 43 ng/mL () Reference Range:All Ages: Target levels 30 - 100Test performed at: [facility] [address] [address] VITD,25-OH, D2 (test code = [id number]) 6.0 ng/mL () VITD,25-OH, D3 (test code = SCPS53P4) 37 ng/mL () Performed At: [facility] [address] [place], [place] [id number] Wing MD Ph:[phone] RENAL FUNCTION [id number] 15:22:00* Test Item Value Reference Range Interpretation Comments SODIUM (test code = NA) 142 mmol/L 136-145 N POTASSIUM (test code = K) 4.4 mmol/L 3.5-5.1 N CHLORIDE (test code = CL) 109.0 mmol/L 98-107 H CARBON DIOXIDE (test code = CO2) 22.0 mmol/L 21-32 N ANION GAP (test code = GAP) 15.4 10-20 N GLUCOSE (test code = GLU) 83 mg/dL 74-106 N BLOOD UREA NITROGEN (test code = BUN) 29 mg/dL 7-18 H CREATININE (test code = CREAT) 2.28 mg/dL 0.55-1.02 H Note change in reference range due to change in reagent. ALBUMIN (test code = ALB) 3.8 g/dL 3.4-5.0 N CALCIUM (test code = CA) 8.8 mg/dL 8.5-10.1 N PHOSPHORUS (test code = PHOS) 3.1 mg/dL 2.5-4.9 N URIC [id number] 15:22:00* Test Item Value Reference Range Interpretation Comments URIC ACID (test code = URIC) 5.5 mg/dL 2.6-7.2 N VITD,25 OH [id number] 15:22:00* Test Item Value Reference Range Interpretation Comments VITAMIN D 25-HYDROXY (test code = VITD25) ng/mL 30-100 VITD,25-OH, D2 (test code = [id number]) ng/mL VITD,25-OH, D3 (test code = [id number]) ng/mL RENAL FUNCTION [id number] 15:10:00* Test Item Value Reference Range Interpretation Comments SODIUM (test code = NA) 142 mmol/L 136-145 N POTASSIUM (test code = K) 4.4 mmol/L 3.5-5.1 N CHLORIDE (test code = CL) 109.0 mmol/L 98-107 H CARBON DIOXIDE (test code = CO2) mmol/L 21-32 ANION GAP (test code = GAP) 10-20 GLUCOSE (test code = GLU) mg/dL 74-106 BLOOD UREA NITROGEN (test code = BUN) mg/dL 7-18 CREATININE (test code = CREAT) mg/dL 0.55-1.02 ALBUMIN (test code = ALB) g/dL 3.4-5.0 CALCIUM (test code = CA) mg/dL 8.5-10.1 PHOSPHORUS (test code = PHOS) mg/dL 2.5-4.9 URIC [id number] 15:10:00* Test Item Value Reference Range Interpretation Comments URIC ACID (test code = URIC) mg/dL 2.6-7.2 VITD,25 OH [id number] 15:10:00* Test Item Value Reference Range Interpretation Comments VITAMIN D 25-HYDROXY (test code = VITD25) ng/mL 30-100 VITD,25-OH, D2 (test code = BBLH19U4) ng/mL VITD,25-OH, D3 (test code = NEJH51D8) ng/mL PTH INTACT [id number] 12:36:00* Test Item Value Reference Range Interpretation Comments CALCIUM (test code = CA) 9.2 mg/dL 8.5-10.1 N PARATHYROID HORMONE INTACT (test code = PARAI) 255.40 pgram/mL 8.4- 88 H UR PROTEIN/CREATININE [id number] 12:23:00* Test Item Value Reference Range Interpretation Comments UR PROTEIN RANDOM (test code = PROTU) 210.6 mg/dL 0.0-11.9 H Protein levels may be falsely elevated in patients withelevated level of aminoglycoside antibiotics in CSF and inhighly concentrated urine specimens. If false elevation issuspected, contact lab for alternated testing technique. UR CREATININE RANDOM (test code = CREATU) 120.0 mg/dL 30-125 N PROTEIN/CREATININE RATIO (test code = P/CRATIO) 1.76 RATIO 0.0-0. 20 H PTH INTACT [id number] 12:01:00* Test Item Value Reference Range Interpretation Comments CALCIUM (test code = CA) 9.2 mg/dL 8.5-10.1 N PARATHYROID HORMONE INTACT (test code = PARAI) pgram/mL 8.4-88 CBC W/AUTO [id number] 10:40:00* Test Item Value Reference Range Interpretation Comments WHITE BLOOD CELL (test code = WBC) 6.2 K/mm3 4.5-12.5 N RED BLOOD CELL (test code = RBC) 3.31 mill/mm3 3.7-5.2 L HEMOGLOBIN (test code = HGB) 10.3 gram/dL 11.5-15.5 L HEMATOCRIT (test code = HCT) 33.7 % 36.0-46.0 L MEAN CELL VOLUME (test code = MCV) 101.8 fL 80-98 H MEAN CELL HGB (test code = MCH) 31.1 picogram 27.0-33.0 N MEAN CELL HGB CONCETRATION (test code = MCHC) 30.6 gram/dL 33.0-36. 0 L RED CELL DISTRIBUTION WIDTH (test code = RDW) 13.2 % 11.6-16. 2 N RED CELL DISTRIBUTION WIDTH SD (test code = RDW-SD) 48.9 fL 37 .0-51.0 N PLATELET COUNT (test code = PLT) 241 K/mm3 150-450 N MEAN PLATELET VOLUME (test code = MPV) 12.9 fL 6.7-11.0 H NEUTROPHIL % (test code = NT%) 62.4 % 39.0-69.0 N IMMATURE GRANULOCYTE % (test code = IG%) 0.3 % 0.0-5.0 N LYMPHOCYTE % (test code = LY%) 21.9 % 25.0-55.0 L MONOCYTE % (test code = MO%) 7.4 % 0.0-10.0 N EOSINOPHIL % (test code = EO%) 7.7 % 0.0-5.0 H BASOPHIL % (test code = BA%) 0.3 % 0.0-1.0 N NUCLEATED RBC % (test code = NRBC%) 0.0 % 0-0 N NEUTROPHIL # (test code = NT#) 3.88 K/mm3 1.8-7.7 N IMMATURE GRANULOCYTE # (test code = IG#) 0.02 x10 3/uL 0-0.03 N LYMPHOCYTE # (test code = LY#) 1.36 K/mm3 1.0-5.0 N MONOCYTE # (test code = MO#) 0.46 K/mm3 0-0.8 N EOSINOPHIL # (test code = EO#) 0.48 K/mm3 0.0-0.5 N BASOPHIL # (test code = BA#) 0.02 K/mm3 0.0-0.2 N NUCLEATED RBC # (test code = NRBC#) 0.00 K/mm3 0.0-0.1 N [id number] 04:53:00* Test Item Value Reference Range Interpretation Comments HEMOGLOBIN (test code = HGB) 9.9 gram/dL 11.5-15.5 L [id number] 04:53:00* Test Item Value Reference Range Interpretation Comments HEMATOCRIT (test code = HCT) 31.2 % 36.0-46.0 L HGB [id number] 18:09:00* Test Item Value Reference Range Interpretation Comments HEMOGLOBIN (test code = HGB) 9.8 gram/dL 11.5-15.5 L HEMATOCRIT (test code = HCT) 30.2 % 36.0-46.0 L PROTHROMBIN [id number] 17:00:00* Test Item Value Reference Range Interpretation Comments PROTHROMBIN TIME PATIENT (test code = PTP) 13.5 seconds 9.0-14.0 N INTERNATIONAL NORMAL RATIO (test code = INR) 1.2 0.8-1.2 N The therapeutic range for oral anticoagulant therapy [...] PATIENT ON ANTICOAGULANTS? NSPECIMEN COMMENTS: STATCOMMENTS TO DISBURSEMENT CLERK: STATCBC W/AUTO [id number] 16:54:00* Test Item Value Reference Range Interpretation Comments WHITE BLOOD CELL (test code = WBC) 7.7 K/mm3 4.5-12.5 N RED BLOOD CELL (test code = RBC) 3.15 mill/mm3 3.7-5.2 L HEMOGLOBIN (test code = HGB) 10.0 gram/dL 11.5-15.5 L HEMATOCRIT (test code = HCT) 31.8 % 36.0-46.0 L MEAN CELL VOLUME (test code = MCV) 101.0 fL 80-98 H MEAN CELL HGB (test code = MCH) 31.7 picogram 27.0-33.0 N MEAN CELL HGB CONCETRATION (test code = MCHC) 31.4 gram/dL 33.0-36. 0 L RED CELL DISTRIBUTION WIDTH (test code = RDW) 13.5 % 11.6-16. 2 N RED CELL DISTRIBUTION WIDTH SD (test code = RDW-SD) 49.3 fL 37 .0-51.0 N PLATELET COUNT (test code = PLT) 258 K/mm3 150-450 N MEAN PLATELET VOLUME (test code = MPV) 13.1 fL 6.7-11.0 H NEUTROPHIL % (test code = NT%) 66.1 % 39.0-69.0 N IMMATURE GRANULOCYTE % (test code = IG%) 0.5 % 0.0-5.0 N LYMPHOCYTE % (test code = LY%) 19.6 % 25.0-55.0 L MONOCYTE % (test code = MO%) 7.0 % 0.0-10.0 N EOSINOPHIL % (test code = EO%) 6.1 % 0.0-5.0 H BASOPHIL % (test code = BA%) 0.7 % 0.0-1.0 N NUCLEATED RBC % (test code = NRBC%) 0.0 % 0-0 N NEUTROPHIL # (test code = NT#) 5.06 K/mm3 1.8-7.7 N IMMATURE GRANULOCYTE # (test code = IG#) 0.04 x10 3/uL 0-0.03 H LYMPHOCYTE # (test code = LY#) 1.50 K/mm3 1.0-5.0 N MONOCYTE # (test code = MO#) 0.54 K/mm3 0-0.8 N EOSINOPHIL # (test code = EO#) 0.47 K/mm3 0.0-0.5 N BASOPHIL # (test code = BA#) 0.05 K/mm3 0.0-0.2 N NUCLEATED RBC # (test code = NRBC#) 0.00 K/mm3 0.0-0.1 N SPECIMEN COMMENTS: STATCOMMENTS TO DISBURSEMENT CLERK: STATCOMPREHENSIVE METABOLIC [id number] 16:52:00* Test Item Value Reference Range Interpretation Comments SODIUM (test code = NA) 141 mmol/L 136-145 N POTASSIUM (test code = K) 4.5 mmol/L 3.5-5.1 N CHLORIDE (test code = CL) 109.0 mmol/L 98-107 H CARBON DIOXIDE (test code = CO2) 24.0 mmol/L 21-32 N ANION GAP (test code = GAP) 12.5 10-20 N GLUCOSE (test code = GLU) 114 mg/dL 74-106 H BLOOD UREA NITROGEN (test code = BUN) 32 mg/dL 7-18 H GLOMERULAR FILTRATION RATE (test code = GFR) 20 mL/min >=60 Estimated GFR by using Modified MDRD formula.Chronic kidney disease is defined as either kidney damageor GFR <60 mL/min/1.73 m2 for >3 months. CREATININE (test code = CREAT) 2.40 mg/dL 0.55-1.02 H Note change in reference range due to change in reagent. BUN/CREATININE RATIO (test code = BUN/CREA) 13.3 10-20 N TOTAL PROTEIN (test code = PROT) 7.5 gram/dL 6.4-8.2 N ALBUMIN (test code = ALB) 3.5 g/dL 3.4-5.0 N GLOBULIN (test code = GLOB) 4.0 gram/dL 2.7-4.2 N ALBUMIN/GLOBULIN RATIO (test code = A/G) 0.9 0.75-1.50 N CALCIUM (test code = CA) 8.7 mg/dL 8.5-10.1 N BILIRUBIN TOTAL (test code = BILT) 0.20 mg/dL 0.0-1.0 N SGOT/AST (test code = AST) 18 IUnit/L 15-37 N SGPT/ALT (test code = ALT) 20 IUnit/L 12-78 N ALKALINE PHOSPHATASE TOTAL (test code = ALKP) 80 IUnit/L 45-117 N Note change in reference range due to change in reagent. SPECIMEN COMMENTS: STATCOMMENTS TO DISBURSEMENT CLERK: STATCOMPREHENSIVE METABOLIC [id number] 16:48:00* Test Item Value Reference Range Interpretation Comments SODIUM (test code = NA) 141 mmol/L 136-145 N POTASSIUM (test code = K) 4.5 mmol/L 3.5-5.1 N CHLORIDE (test code = CL) 109.0 mmol/L 98-107 H CARBON DIOXIDE (test code = CO2) mmol/L 21-32 ANION GAP (test code = GAP) 10-20 GLUCOSE (test code = GLU) mg/dL 74-106 BLOOD UREA NITROGEN (test code = BUN) mg/dL 7-18 GLOMERULAR FILTRATION RATE (test code = GFR) mL/min >=60 CREATININE (test code = CREAT) mg/dL 0.55-1.02 BUN/CREATININE RATIO (test code = BUN/CREA) 10-20 TOTAL PROTEIN (test code = PROT) gram/dL 6.4-8.2 ALBUMIN (test code = ALB) g/dL 3.4-5.0 GLOBULIN (test code = GLOB) gram/dL 2.7-4.2 ALBUMIN/GLOBULIN RATIO (test code = A/G) 0.75-1.50 CALCIUM (test code = CA) mg/dL 8.5-10.1 BILIRUBIN TOTAL (test code = BILT) mg/dL 0.0-1.0 SGOT/AST (test code = AST) IUnit/L 15-37 SGPT/ALT (test code = ALT) IUnit/L 12-78 ALKALINE PHOSPHATASE TOTAL (test code = ALKP) IUnit/L 45-117 SPECIMEN COMMENTS: STATCOMMENTS TO DISBURSEMENT CLERK: STATCOMPREHENSIVE METABOLIC [id number] 16:48:00* Test Item Value Reference Range Interpretation Comments SODIUM (test code = NA) 141 mmol/L 136-145 N POTASSIUM (test code = K) 4.5 mmol/L 3.5-5.1 N CHLORIDE (test code = CL) 109.0 mmol/L 98-107 H CARBON DIOXIDE (test code = CO2) mmol/L 21-32 ANION GAP (test code = GAP) 10-20 GLUCOSE (test code = GLU) mg/dL 74-106 BLOOD UREA NITROGEN (test code = BUN) mg/dL 7-18 GLOMERULAR FILTRATION RATE (test code = GFR) mL/min >=60 CREATININE (test code = CREAT) mg/dL 0.55-1.02 BUN/CREATININE RATIO (test code = BUN/CREA) 10-20 TOTAL PROTEIN (test code = PROT) gram/dL 6.4-8.2 ALBUMIN (test code = ALB) g/dL 3.4-5.0 GLOBULIN (test code = GLOB) gram/dL 2.7-4.2 ALBUMIN/GLOBULIN RATIO (test code = A/G) 0.75-1.50 CALCIUM (test code = CA) mg/dL 8.5-10.1 BILIRUBIN TOTAL (test code = BILT) mg/dL 0.0-1.0 SGOT/AST (test code = AST) IUnit/L 15-37 SGPT/ALT (test code = ALT) IUnit/L 12-78 ALKALINE PHOSPHATASE TOTAL (test code = ALKP) IUnit/L 45-117 SPECIMEN COMMENTS: STATCOMMENTS TO DISBURSEMENT CLERK: STAT- XR CHEST 1 [id number] 08:44:00 FAX: Abdias Schwartz DO [phone] [place]: [address] St: REG Name: Summer SCOTTROLANDO [facility] : [birth year] Age/S: 68/F [address] [facility] Unit #: [id number] Loc: [place] [address] Phys: Haroon Foreman MD Acct: [id number] Dis Date: Status: REG IAC PHONE #: [phone] Exam Date: 11/28/2018813 FAX #: [phone] Reason: line placement EXAMS: CPT CODE: [id number] XR CHEST 1 V 69835 HISTORY: Line placement. COMPARISON: None available. Right [...] signed by: Juan Luis Spring M.D. CC: Abdias Nguyen DO Technologist: Monica munoz RT(R) Trnscrd Date/Time/By: 11/28/2018 (0 844) : By: [email or web address] Orig Print D/T: S: 11/28/2018 (0874) PAGE 1 Signed Report [id number] 07:23:00* Test Item Value Reference Range Interpretation Comments GLUBED (test code = GLUBED) 107 mg/dL 74-106 H Performed by certified transmission systems operator at [facility] BASIC METABOLIC [id number] 14:26:00* Test Item Value Reference Range Interpretation Comments SODIUM (test code = NA) 142 mmol/L 136-145 N POTASSIUM (test code = K) 4.4 mmol/L 3.5-5.1 N CHLORIDE (test code = CL) 106.0 mmol/L 98-107 N CARBON DIOXIDE (test code = CO2) 25.0 mmol/L 21-32 N ANION GAP (test code = GAP) 15.4 10-20 N GLUCOSE (test code = GLU) 108 mg/dL 74-106 H BLOOD UREA NITROGEN (test code = BUN) 29 mg/dL 7-18 H GLOMERULAR FILTRATION RATE (test code = GFR) 20 mL/min >=60 Estimated GFR by using Modified MDRD formula.Chronic kidney disease is defined as either kidney damageor GFR <60 mL/min/1.73 m2 for >3 months. CREATININE (test code = CREAT) 2.40 mg/dL 0.55-1.02 H Note change in reference range due to change in reagent. BUN/CREATININE RATIO (test code = BUN/CREA) 12.1 10-20 N CALCIUM (test code = CA) 9.2 mg/dL 8.5-10.1 N BASIC METABOLIC [id number] 13:58:00* Test Item Value Reference Range Interpretation Comments SODIUM (test code = NA) mmol/L 136-145 POTASSIUM (test code = K) mmol/L 3.5-5.1 CHLORIDE (test code = CL) mmol/L 98-107 CARBON DIOXIDE (test code = CO2) 25.0 mmol/L 21-32 N ANION GAP (test code = GAP) 10-20 GLUCOSE (test code = GLU) 108 mg/dL 74-106 H BLOOD UREA NITROGEN (test code = BUN) 29 mg/dL 7-18 H GLOMERULAR FILTRATION RATE (test code = GFR) mL/min >=60 CREATININE (test code = CREAT) mg/dL 0.55-1.02 BUN/CREATININE RATIO (test code = BUN/CREA) 10-20 CALCIUM (test code = CA) 9.2 mg/dL 8.5-10.1 N CBC W/AUTO [id number] 12:16:00* Test Item Value Reference Range Interpretation Comments WHITE BLOOD CELL (test code = WBC) 7.5 K/mm3 4.5-12.5 N RED BLOOD CELL (test code = RBC) 3.52 mill/mm3 3.7-5.2 L HEMOGLOBIN (test code = HGB) 11.1 gram/dL 11.5-15.5 L HEMATOCRIT (test code = HCT) 35.6 % 36.0-46.0 L MEAN CELL VOLUME (test code = MCV) 101.1 fL 80-98 H MEAN CELL HGB (test code = MCH) 31.5 picogram 27.0-33.0 N MEAN CELL HGB CONCETRATION (test code = MCHC) 31.2 gram/dL 33.0-36. 0 L RED CELL DISTRIBUTION WIDTH (test code = RDW) 13.6 % 11.6-16. 2 N RED CELL DISTRIBUTION WIDTH SD (test code = RDW-SD) 50.7 fL 37 .0-51.0 N PLATELET COUNT (test code = PLT) 296 K/mm3 150-450 N MEAN PLATELET VOLUME (test code = MPV) 13.0 fL 6.7-11.0 H NEUTROPHIL % (test code = NT%) 62.3 % 39.0-69.0 N IMMATURE GRANULOCYTE % (test code = IG%) 0.4 % 0.0-5.0 N LYMPHOCYTE % (test code = LY%) 22.2 % 25.0-55.0 L MONOCYTE % (test code = MO%) 6.3 % 0.0-10.0 N EOSINOPHIL % (test code = EO%) 8.4 % 0.0-5.0 H BASOPHIL % (test code = BA%) 0.4 % 0.0-1.0 N NUCLEATED RBC % (test code = NRBC%) 0.0 % 0-0 N NEUTROPHIL # (test code = NT#) 4.68 K/mm3 1.8-7.7 N IMMATURE GRANULOCYTE # (test code = IG#) 0.03 x10 3/uL 0-0.03 N LYMPHOCYTE # (test code = LY#) 1.67 K/mm3 1.0-5.0 N MONOCYTE # (test code = MO#) 0.47 K/mm3 0-0.8 N EOSINOPHIL # (test code = EO#) 0.63 K/mm3 0.0-0.5 H BASOPHIL # (test code = BA#) 0.03 K/mm3 0.0-0.2 N NUCLEATED RBC # (test code = NRBC#) 0.00 K/mm3 0.0-0.1 N MANUAL DIFF REQUIRED (test code = MDIFF) NO, ONLY SCAN NEEDED DIFFERENTIAL [id number] 12:16:00* Test Item Value Reference Range Interpretation Comments STAIN ACCEPTABILITY (test code = STN ACCEPTABLE) STAIN ACCEPTABLE PLATELET ESTIMATE (test code = PLTEST) ADEQUATE PLATELET MORPHOLOGY (test code = PLTMORPH) NORMAL CBC W/AUTO [id number] 12:11:00* Test Item Value Reference Range Interpretation Comments WHITE BLOOD CELL (test code = WBC) 7.5 K/mm3 4.5-12.5 N RED BLOOD CELL (test code = RBC) 3.52 mill/mm3 3.7-5.2 L HEMOGLOBIN (test code = HGB) 11.1 gram/dL 11.5-15.5 L HEMATOCRIT (test code = HCT) 35.6 % 36.0-46.0 L MEAN CELL VOLUME (test code = MCV) 101.1 fL 80-98 H MEAN CELL HGB (test code = MCH) 31.5 picogram 27.0-33.0 N MEAN CELL HGB CONCETRATION (test code = MCHC) 31.2 gram/dL 33.0-36. 0 L RED CELL DISTRIBUTION WIDTH (test code = RDW) 13.6 % 11.6-16. 2 N RED CELL DISTRIBUTION WIDTH SD (test code = RDW-SD) 50.7 fL 37 .0-51.0 N PLATELET COUNT (test code = PLT) 296 K/mm3 150-450 N MEAN PLATELET VOLUME (test code = MPV) 13.0 fL 6.7-11.0 H NEUTROPHIL % (test code = NT%) 62.3 % 39.0-69.0 N IMMATURE GRANULOCYTE % (test code = IG%) 0.4 % 0.0-5.0 N LYMPHOCYTE % (test code = LY%) 22.2 % 25.0-55.0 L MONOCYTE % (test code = MO%) 6.3 % 0.0-10.0 N EOSINOPHIL % (test code = EO%) 8.4 % 0.0-5.0 H BASOPHIL % (test code = BA%) 0.4 % 0.0-1.0 N NUCLEATED RBC % (test code = NRBC%) 0.0 % 0-0 N NEUTROPHIL # (test code = NT#) 4.68 K/mm3 1.8-7.7 N IMMATURE GRANULOCYTE # (test code = IG#) 0.03 x10 3/uL 0-0.03 N LYMPHOCYTE # (test code = LY#) 1.67 K/mm3 1.0-5.0 N MONOCYTE # (test code = MO#) 0.47 K/mm3 0-0.8 N EOSINOPHIL # (test code = EO#) 0.63 K/mm3 0.0-0.5 H BASOPHIL # (test code = BA#) 0.03 K/mm3 0.0-0.2 N NUCLEATED RBC # (test code = NRBC#) 0.00 K/mm3 0.0-0.1 N MANUAL DIFF REQUIRED (test code = MDIFF) NO, ONLY SCAN NEEDED DIFFERENTIAL [id number] 12:11:00* Test Item Value Reference Range Interpretation Comments STAIN ACCEPTABILITY (test code = STN ACCEPTABLE) STAIN ACCEPTABLE POLYCHROMASIA (test code = POLC) PLATELET ESTIMATE (test code = PLTEST) ADEQUATE PLATELET MORPHOLOGY (test code = PLTMORPH) NORMAL CBC W/AUTO [id number] 11:22:00* Test Item Value Reference Range Interpretation Comments WHITE BLOOD CELL (test code = WBC) 7.5 K/mm3 4.5-12.5 N RED BLOOD CELL (test code = RBC) 3.52 mill/mm3 3.7-5.2 L HEMOGLOBIN (test code = HGB) 11.1 gram/dL 11.5-15.5 L HEMATOCRIT (test code = HCT) 35.6 % 36.0-46.0 L MEAN CELL VOLUME (test code = MCV) 101.1 fL 80-98 H MEAN CELL HGB (test code = MCH) 31.5 picogram 27.0-33.0 N MEAN CELL HGB CONCETRATION (test code = MCHC) 31.2 gram/dL 33.0-36. 0 L RED CELL DISTRIBUTION WIDTH (test code = RDW) 13.6 % 11.6-16. 2 N RED CELL DISTRIBUTION WIDTH SD (test code = RDW-SD) 50.7 fL 37 .0-51.0 N PLATELET COUNT (test code = PLT) 296 K/mm3 150-450 N MEAN PLATELET VOLUME (test code = MPV) 13.0 fL 6.7-11.0 H NEUTROPHIL % (test code = NT%) 62.3 % 39.0-69.0 N IMMATURE GRANULOCYTE % (test code = IG%) 0.4 % 0.0-5.0 N LYMPHOCYTE % (test code = LY%) 22.2 % 25.0-55.0 L MONOCYTE % (test code = MO%) 6.3 % 0.0-10.0 N EOSINOPHIL % (test code = EO%) 8.4 % 0.0-5.0 H BASOPHIL % (test code = BA%) 0.4 % 0.0-1.0 N NUCLEATED RBC % (test code = NRBC%) 0.0 % 0-0 N NEUTROPHIL # (test code = NT#) 4.68 K/mm3 1.8-7.7 N IMMATURE GRANULOCYTE # (test code = IG#) 0.03 x10 3/uL 0-0.03 N LYMPHOCYTE # (test code = LY#) 1.67 K/mm3 1.0-5.0 N MONOCYTE # (test code = MO#) 0.47 K/mm3 0-0.8 N EOSINOPHIL # (test code = EO#) 0.63 K/mm3 0.0-0.5 H BASOPHIL # (test code = BA#) 0.03 K/mm3 0.0-0.2 N NUCLEATED RBC # (test code = NRBC#) 0.00 K/mm3 0.0-0.1 N MANUAL DIFF REQUIRED (test code = MDIFF) NO, ONLY SCAN NEEDED DIFFERENTIAL [id number] 11:22:00* Test Item Value Reference Range Interpretation Comments STAIN ACCEPTABILITY (test code = STN ACCEPTABLE) CABOT RINGS (test code = CAB) MORPHOLOGY COMMENT (test code = MOC) PLATELET ESTIMATE (test code = PLTEST) PLATELET MORPHOLOGY (test code = PLTMORPH) CBC W/AUTO [id number] 11:22:00* Test Item Value Reference Range Interpretation Comments WHITE BLOOD CELL (test code = WBC) 7.5 K/mm3 4.5-12.5 N RED BLOOD CELL (test code = RBC) 3.52 mill/mm3 3.7-5.2 L HEMOGLOBIN (test code = HGB) 11.1 gram/dL 11.5-15.5 L HEMATOCRIT (test code = HCT) 35.6 % 36.0-46.0 L MEAN CELL VOLUME (test code = MCV) 101.1 fL 80-98 H MEAN CELL HGB (test code = MCH) 31.5 picogram 27.0-33.0 N MEAN CELL HGB CONCETRATION (test code = MCHC) 31.2 gram/dL 33.0-36. 0 L RED CELL DISTRIBUTION WIDTH (test code = RDW) 13.6 % 11.6-16. 2 N RED CELL DISTRIBUTION WIDTH SD (test code = RDW-SD) 50.7 fL 37 .0-51.0 N PLATELET COUNT (test code = PLT) 296 K/mm3 150-450 N MEAN PLATELET VOLUME (test code = MPV) 13.0 fL 6.7-11.0 H NEUTROPHIL % (test code = NT%) 62.3 % 39.0-69.0 N IMMATURE GRANULOCYTE % (test code = IG%) 0.4 % 0.0-5.0 N LYMPHOCYTE % (test code = LY%) 22.2 % 25.0-55.0 L MONOCYTE % (test code = MO%) 6.3 % 0.0-10.0 N EOSINOPHIL % (test code = EO%) 8.4 % 0.0-5.0 H BASOPHIL % (test code = BA%) 0.4 % 0.0-1.0 N NUCLEATED RBC % (test code = NRBC%) 0.0 % 0-0 N NEUTROPHIL # (test code = NT#) 4.68 K/mm3 1.8-7.7 N IMMATURE GRANULOCYTE # (test code = IG#) 0.03 x10 3/uL 0-0.03 N LYMPHOCYTE # (test code = LY#) 1.67 K/mm3 1.0-5.0 N MONOCYTE # (test code = MO#) 0.47 K/mm3 0-0.8 N EOSINOPHIL # (test code = EO#) 0.63 K/mm3 0.0-0.5 H BASOPHIL # (test code = BA#) 0.03 K/mm3 0.0-0.2 N NUCLEATED RBC # (test code = NRBC#) 0.00 K/mm3 0.0-0.1 N MANUAL DIFF REQUIRED (test code = MDIFF) NO, ONLY SCAN NEEDED DIFFERENTIAL [id number] 11:22:00* Test Item Value Reference Range Interpretation Comments STAIN ACCEPTABILITY (test code = STN ACCEPTABLE) CABOT RINGS (test code = CAB) MORPHOLOGY COMMENT (test code = MOC) PLATELET ESTIMATE (test code = PLTEST) PLATELET MORPHOLOGY (test code = PLTMORPH) CBC W/AUTO [id number] 11:22:00* Test Item Value Reference Range Interpretation Comments WHITE BLOOD CELL (test code = WBC) 7.5 K/mm3 4.5-12.5 N RED BLOOD CELL (test code = RBC) 3.52 mill/mm3 3.7-5.2 L HEMOGLOBIN (test code = HGB) 11.1 gram/dL 11.5-15.5 L HEMATOCRIT (test code = HCT) 35.6 % 36.0-46.0 L MEAN CELL VOLUME (test code = MCV) 101.1 fL 80-98 H MEAN CELL HGB (test code = MCH) 31.5 picogram 27.0-33.0 N MEAN CELL HGB CONCETRATION (test code = MCHC) 31.2 gram/dL 33.0-36. 0 L RED CELL DISTRIBUTION WIDTH (test code = RDW) 13.6 % 11.6-16. 2 N RED CELL DISTRIBUTION WIDTH SD (test code = RDW-SD) 50.7 fL 37 .0-51.0 N PLATELET COUNT (test code = PLT) 296 K/mm3 150-450 N MEAN PLATELET VOLUME (test code = MPV) 13.0 fL 6.7-11.0 H NEUTROPHIL % (test code = NT%) 62.3 % 39.0-69.0 N IMMATURE GRANULOCYTE % (test code = IG%) 0.4 % 0.0-5.0 N LYMPHOCYTE % (test code = LY%) 22.2 % 25.0-55.0 L MONOCYTE % (test code = MO%) 6.3 % 0.0-10.0 N EOSINOPHIL % (test code = EO%) 8.4 % 0.0-5.0 H BASOPHIL % (test code = BA%) 0.4 % 0.0-1.0 N NUCLEATED RBC % (test code = NRBC%) 0.0 % 0-0 N NEUTROPHIL # (test code = NT#) 4.68 K/mm3 1.8-7.7 N IMMATURE GRANULOCYTE # (test code = IG#) 0.03 x10 3/uL 0-0.03 N LYMPHOCYTE # (test code = LY#) 1.67 K/mm3 1.0-5.0 N MONOCYTE # (test code = MO#) 0.47 K/mm3 0-0.8 N EOSINOPHIL # (test code = EO#) 0.63 K/mm3 0.0-0.5 H BASOPHIL # (test code = BA#) 0.03 K/mm3 0.0-0.2 N NUCLEATED RBC # (test code = NRBC#) 0.00 K/mm3 0.0-0.1 N MANUAL DIFF REQUIRED (test code = MDIFF) NO, ONLY SCAN NEEDED DIFFERENTIAL [id number] 11:22:00* Test Item Value Reference Range Interpretation Comments STAIN ACCEPTABILITY (test code = STN ACCEPTABLE) MORPHOLOGY COMMENT (test code = MOC) PLATELET ESTIMATE (test code = PLTEST) PLATELET MORPHOLOGY (test code = PLTMORPH) CBC W/AUTO [id number] 11:22:00* Test Item Value Reference Range Interpretation Comments WHITE BLOOD CELL (test code = WBC) 7.5 K/mm3 4.5-12.5 N RED BLOOD CELL (test code = RBC) 3.52 mill/mm3 3.7-5.2 L HEMOGLOBIN (test code = HGB) 11.1 gram/dL 11.5-15.5 L HEMATOCRIT (test code = HCT) 35.6 % 36.0-46.0 L MEAN CELL VOLUME (test code = MCV) 101.1 fL 80-98 H MEAN CELL HGB (test code = MCH) 31.5 picogram 27.0-33.0 N MEAN CELL HGB CONCETRATION (test code = MCHC) 31.2 gram/dL 33.0-36. 0 L RED CELL DISTRIBUTION WIDTH (test code = RDW) 13.6 % 11.6-16. 2 N RED CELL DISTRIBUTION WIDTH SD (test code = RDW-SD) 50.7 fL 37 .0-51.0 N PLATELET COUNT (test code = PLT) 296 K/mm3 150-450 N MEAN PLATELET VOLUME (test code = MPV) 13.0 fL 6.7-11.0 H NEUTROPHIL % (test code = NT%) 62.3 % 39.0-69.0 N IMMATURE GRANULOCYTE % (test code = IG%) 0.4 % 0.0-5.0 N LYMPHOCYTE % (test code = LY%) 22.2 % 25.0-55.0 L MONOCYTE % (test code = MO%) 6.3 % 0.0-10.0 N EOSINOPHIL % (test code = EO%) 8.4 % 0.0-5.0 H BASOPHIL % (test code = BA%) 0.4 % 0.0-1.0 N NUCLEATED RBC % (test code = NRBC%) 0.0 % 0-0 N NEUTROPHIL # (test code = NT#) 4.68 K/mm3 1.8-7.7 N IMMATURE GRANULOCYTE # (test code = IG#) 0.03 x10 3/uL 0-0.03 N LYMPHOCYTE # (test code = LY#) 1.67 K/mm3 1.0-5.0 N MONOCYTE # (test code = MO#) 0.47 K/mm3 0-0.8 N EOSINOPHIL # (test code = EO#) 0.63 K/mm3 0.0-0.5 H BASOPHIL # (test code = BA#) 0.03 K/mm3 0.0-0.2 N NUCLEATED RBC # (test code = NRBC#) 0.00 K/mm3 0.0-0.1 N MANUAL DIFF REQUIRED (test code = MDIFF) NO, ONLY SCAN NEEDED DIFFERENTIAL [id number] 11:22:00* Test Item Value Reference Range Interpretation Comments STAIN ACCEPTABILITY (test code = STN ACCEPTABLE) CABOT RINGS (test code = CAB) MORPHOLOGY COMMENT (test code = MOC) PLATELET ESTIMATE (test code = PLTEST) PLATELET MORPHOLOGY (test code = PLTMORPH) RENAL FUNCTION [id number] 10:08:00* Test Item Value Reference Range Interpretation Comments SODIUM (test code = NA) 140 mmol/L 136-145 N POTASSIUM (test code = K) 4.6 mmol/L 3.5-5.1 N CHLORIDE (test code = CL) 109.0 mmol/L 98-107 H CARBON DIOXIDE (test code = CO2) 22.0 mmol/L 21-32 N ANION GAP (test code = GAP) 13.6 10-20 N GLUCOSE (test code = GLU) 105 mg/dL 74-106 N BLOOD UREA NITROGEN (test code = BUN) 29 mg/dL 7-18 H CREATININE (test code = CREAT) 2.40 mg/dL 0.55-1.02 H Note change in reference range due to change in reagent. ALBUMIN (test code = ALB) 3.8 g/dL 3.4-5.0 N CALCIUM (test code = CA) 9.0 mg/dL 8.5-10.1 N PHOSPHORUS (test code = PHOS) 4.0 mg/dL 2.5-4.9 N URIC [id number] 10:08:00* Test Item Value Reference Range Interpretation Comments URIC ACID (test code = URIC) 4.8 mg/dL 2.6-7.2 N FE W/TOTAL IRON BINDING CAP.2018-08-28 10:08:00* Test Item Value Reference Range Interpretation Comments SERUM IRON (test code = IRON) 67 ug/dL 50-175 N TOTAL IRON BINDING CAPACITY (test code = TIBC) 428 mcg/dL 250-450 N IRON SATURATION (test code = FESAT) 15.65 % 13-45 N [id number] 10:08:00* Test Item Value Reference Range Interpretation Comments FERRITIN (test code = BARRERA) 19 ng/mL 8-388 N RENAL FUNCTION [id number] 09:57:00* Test Item Value Reference Range Interpretation Comments SODIUM (test code = NA) 140 mmol/L 136-145 N POTASSIUM (test code = K) 4.6 mmol/L 3.5-5.1 N CHLORIDE (test code = CL) 109.0 mmol/L 98-107 H CARBON DIOXIDE (test code = CO2) mmol/L 21-32 ANION GAP (test code = GAP) 10-20 GLUCOSE (test code = GLU) mg/dL 74-106 BLOOD UREA NITROGEN (test code = BUN) mg/dL 7-18 CREATININE (test code = CREAT) mg/dL 0.55-1.02 ALBUMIN (test code = ALB) g/dL 3.4-5.0 CALCIUM (test code = CA) mg/dL 8.5-10.1 PHOSPHORUS (test code = PHOS) mg/dL 2.5-4.9 URIC [id number] 09:57:00* Test Item Value Reference Range Interpretation Comments URIC ACID (test code = URIC) mg/dL 2.6-7.2 FE W/TOTAL IRON BINDING CAP.2018-08-28 09:57:00* Test Item Value Reference Range Interpretation Comments SERUM IRON (test code = IRON) ug/dL 50-175 TOTAL IRON BINDING CAPACITY (test code = TIBC) mcg/dL 250-450 IRON SATURATION (test code = FESAT) % 13-45 [id number] 09:57:00* Test Item Value Reference Range Interpretation Comments FERRITIN (test code = BARRERA) ng/mL 8-388 CBC W/AUTO [id number] 09:50:00* Test Item Value Reference Range Interpretation Comments WHITE BLOOD CELL (test code = WBC) 7.3 K/mm3 4.5-12.5 N RED BLOOD CELL (test code = RBC) 3.16 mill/mm3 3.7-5.2 L HEMOGLOBIN (test code = HGB) 9.8 gram/dL 11.5-15.5 L HEMATOCRIT (test code = HCT) 31.9 % 36.0-46.0 L MEAN CELL VOLUME (test code = MCV) 100.9 fL 80-98 H MEAN CELL HGB (test code = MCH) 31.0 picogram 27.0-33.0 N MEAN CELL HGB CONCETRATION (test code = MCHC) 30.7 gram/dL 33.0-36. 0 L RED CELL DISTRIBUTION WIDTH (test code = RDW) 14.1 % 11.6-16. 2 N RED CELL DISTRIBUTION WIDTH SD (test code = RDW-SD) 52.0 fL 37 .0-51.0 H PLATELET COUNT (test code = PLT) 283 K/mm3 150-450 N MEAN PLATELET VOLUME (test code = MPV) 13.4 fL 6.7-11.0 H NEUTROPHIL % (test code = NT%) 63.5 % 39.0-69.0 N IMMATURE GRANULOCYTE % (test code = IG%) 0.4 % 0.0-5.0 N LYMPHOCYTE % (test code = LY%) 22.4 % 25.0-55.0 L MONOCYTE % (test code = MO%) 5.5 % 0.0-10.0 N EOSINOPHIL % (test code = EO%) 7.5 % 0.0-5.0 H BASOPHIL % (test code = BA%) 0.7 % 0.0-1.0 N NUCLEATED RBC % (test code = NRBC%) 0.0 % 0-0 N NEUTROPHIL # (test code = NT#) 4.64 K/mm3 1.8-7.7 N IMMATURE GRANULOCYTE # (test code = IG#) 0.03 x10 3/uL 0-0.03 N LYMPHOCYTE # (test code = LY#) 1.64 K/mm3 1.0-5.0 N MONOCYTE # (test code = MO#) 0.40 K/mm3 0-0.8 N EOSINOPHIL # (test code = EO#) 0.55 K/mm3 0.0-0.5 H BASOPHIL # (test code = BA#) 0.05 K/mm3 0.0-0.2 N NUCLEATED RBC # (test code = NRBC#) 0.00 K/mm3 0.0-0.1 N MANUAL DIFF REQUIRED (test code = MDIFF) NO Bedside [id number] 05:32:00* Test Item Value Reference Range Interpretation Comments Bedside Glucose (test code = 81160-8) 135 70-120 H Meter ID: [id number] [facility] 2018-02-26 16:25:00 [facility] [address] [address] Patient Name: ROLANDO SINHA MR #: [id number] : 1950 Age/Sex: 67/F Req #: [id number] Adm Physician: DAVIN ARMENDARIZ MD Ordered by: SKINNY MONTESINOS MD Report #: [id number] Location: [facility] Room/Bed: [address] [address] Procedure: MRI/MRI BRAIN WO Exam Date: Exam Time: RE PORT STATUS: Signed Examination: MRI BRAIN WITHOUT CONTRAST [place] [facility] [place] Comparison studies: Head CT dated 02/25/2018 Technique: [...] 08/14 1630 COPY TO: SKINNY MONTESINOS MD Creatine Kinase MB 2018-02-26 13:10:00* Test Item Value Reference Range Interpretation Comments Creatine Kinase MB (test code = 97944-7) 0.80 0-5.0 [facility] HospitalTroponin [id number] 13:10:00* Test Item Value Reference Range Interpretation Comments Troponin I (test code = MYB2929) 0.008 0-0.300 [facility] HospitalCreatine Virtum1391-10-56 13:06:00* Test Item Value Reference Range Interpretation Comments Creatine Kinase (test code = 2157-6) 65 29-168 [facility] Dwfcp6375-29-18 06:19:00* Test Item Value Reference Range Interpretation Comments Sodium Level (test code = 2951-2) 139 136-145 [facility] HospitalPotassium Ekckd8406-46-01 06:19:00* Test Item Value Reference Range Interpretation Comments Potassium Level (test code = 2823-3) 3.7 3.5-5.1 [facility] HospitalChloride Ptxuv0830-63-04 06:19:00* Test Item Value Reference Range Interpretation Comments Chloride Level (test code = 2075-0) 107 98-107 [facility] HospitalCarbon Dioxide Mircc5595-35-75 06:19:00* Test Item Value Reference Range Interpretation Comments Carbon Dioxide Level (test code = 2028-9) 18 22-29 L [facility] HospitalAnion Dfj0685-18-29 06:19:00* Test Item Value Reference Range Interpretation Comments Anion Gap (test code = 97556-6) 17.7 8-16 H [facility] HospitalBlood Urea Viwzruqc4248-39-94 06:19:00* Test Item Value Reference Range Interpretation Comments Blood Urea Nitrogen (test code = 3094-0) 24 7-26 [facility] HospitalCreatinine2018-09-02 06:19:00* Test Item Value Reference Range Interpretation Comments Creatinine (test code = 2160-0) 2.12 0.57-1.11 H [facility] HospitalBUN/Creatinine Afhdo2574-53-97 06:19:00* Test Item Value Reference Range Interpretation Comments BUN/Creatinine Ratio (test code = 3097-3) 11 6-25 [facility] HospitalEstimat Glomerular Filtration Rate 2018-02-26 06:19:00* Test Item Value Reference Range Interpretation Comments Estimat Glomerular Filtration Rate (test code = 31733-0) 23 >60 L Ranges were taken from the National Kidney Disease Education Program and the [employer] literature.Reference ranges:60 or greater: Nxqdpo96-99 ( for 3 consecutive months): Chronic kidney disease 15 or less: Kidney failureHarris Health System Ben Taub HospitalGlucose Lppbn0316-56-34 06:19:00* Test Item Value Reference Range Interpretation Comments Glucose Level (test code = GRR4985) 90 74-118 [facility] HospitalCalcium Gqgso3793-27-15 06:19:00* Test Item Value Reference Range Interpretation Comments Calcium Level (test code = 00233-5) 8.4 8.4-10.2 [facility] HospitalTotal Ftzrvupih0057-99-18 06:19:00* Test Item Value Reference Range Interpretation Comments Total Bilirubin (test code = 1975-2) 0.3 0.2-1.2 [facility] HospitalAspartate Amino Transf (AST/SGOT) 2018-02-26 06:19:00* Test Item Value Reference Range Interpretation Comments Aspartate Amino Transf (AST/SGOT) (test code = Aspartate Amino Transf (AST/SGOT)) 12 5-34 [facility] HospitalAlanine Aminotransferase (ALT/SGPT) 2018-02-26 06:19:00* Test Item Value Reference Range Interpretation Comments Alanine Aminotransferase (ALT/SGPT) (test code = 1742-6) 9 0-55 [facility] HospitalTotal Wszjokn5341-02-76 06:19:00* Test Item Value Reference Range Interpretation Comments Total Protein (test code = 2885-2) 7.0 6.5-8.1 [facility] HospitalAlbumin2018-09-02 06:19:00* Test Item Value Reference Range Interpretation Comments Albumin (test code = 1751-7) 3.3 3.5-5.0 L [facility] HospitalGlobulin2018-09-02 06:19:00* Test Item Value Reference Range Interpretation Comments Globulin (test code = 49284-5) 3.7 2.3-3.5 H [facility] HospitalAlbumin/Globulin Hbrxs0356-53-92 06:19:00 * Test Item Value Reference Range Interpretation Comments Albumin/Globulin Ratio (test code = 1759-0) 0.9 0.8-2.0 [facility] HospitalAlkaline Jolkulmvmzx8107-42-28 06:19:00* Test Item Value Reference Range Interpretation Comments Alkaline Phosphatase (test code = 6768-6) 64 40-150 [facility] HospitalWhite Blood Zhwcv1496-07-62 04:54:00* Test Item Value Reference Range Interpretation Comments White Blood Count (test code = 6690-2) 8.40 4.8-10.8 [facility] HospitalRed Blood Rrvjf6896-62-97 04:54:00* Test Item Value Reference Range Interpretation Comments Red Blood Count (test code = 789-8) 2.94 3.6-5.1 L [facility] HospitalHemoglobin2018-09-02 04:54:00* Test Item Value Reference Range Interpretation Comments Hemoglobin (test code = 61096-7) 9.3 12.0-16.0 L [facility] HospitalHematocrit2018-09-02 04:54:00* Test Item Value Reference Range Interpretation Comments Hematocrit (test code = 4544-3) 28.9 34.2-44.1 L [facility] HospitalMean Corpuscular Wbbrox0673-88-81 04:54:00* Test Item Value Reference Range Interpretation Comments Mean Corpuscular Volume (test code = 787-2) 98.3 81-99 [facility] HospitalMean Corpuscular Hiniitqawt1071-64-35 04:54:00* Test Item Value Reference Range Interpretation Comments Mean Corpuscular Hemoglobin (test code = 785-6) 31.6 28-32 [facility] HospitalMean Corpuscular Hemoglobin Concent 2018-02-26 04:54:00* Test Item Value Reference Range Interpretation Comments Mean Corpuscular Hemoglobin Concent (test code = 786-4) 32.2 31-35 [facility] HospitalRed Cell Distribution Dddfg4521-76-83 04:54:00* Test Item Value Reference Range Interpretation Comments Red Cell Distribution Width (test code = 98889-1) 14.2 11.7 -14.4 [facility] HospitalPlatelet Vgjik6881-90-96 04:54:00* Test Item Value Reference Range Interpretation Comments Platelet Count (test code = 777-3) 215 140-360 [facility] HospitalNeutrophils (%) (Auto)2018-02-26 04:54:00 * Test Item Value Reference Range Interpretation Comments Neutrophils (%) (Auto) (test code = 50570-5) 46.4 38.7-80.0 [facility] HospitalLymphocytes (%) (Auto)2018-02-26 04:54:00 * Test Item Value Reference Range Interpretation Comments Lymphocytes (%) (Auto) (test code = 736-9) 35.1 18.0-39.1 [facility] HospitalMonocytes (%) (Auto)2018-02-26 04:54:00* Test Item Value Reference Range Interpretation Comments Monocytes (%) (Auto) (test code = 5905-5) 6.4 4.4-11.3 [facility] HospitalEosinophils (%) (Auto)2018-02-26 04:54:00 * Test Item Value Reference Range Interpretation Comments Eosinophils (%) (Auto) (test code = 713-8) 11.0 0.0-6.0 H [facility] HospitalBasophils (%) (Auto)2018-02-26 04:54:00* Test Item Value Reference Range Interpretation Comments Basophils (%) (Auto) (test code = 706-2) 0.7 0.0-1.0 [facility] HospitalIM GRANULOCYTES %2018-02-26 04:54:00* Test Item Value Reference Range Interpretation Comments IM GRANULOCYTES % (test code = IM GRANULOCYTES %) 0.4 0.0- 1.0 [facility] HospitalNeutrophils # (Auto)2018-02-26 04:54:00* Test Item Value Reference Range Interpretation Comments Neutrophils # (Auto) (test code = 751-8) 3.9 2.1-6.9 [facility] HospitalLymphocytes # (Auto)2018-02-26 04:54:00* Test Item Value Reference Range Interpretation Comments Lymphocytes # (Auto) (test code = 69949-2) 3.0 1.0-3.2 [facility] HospitalMonocytes # (Auto)2018-02-26 04:54:00* Test Item Value Reference Range Interpretation Comments Monocytes # (Auto) (test code = 742-7) 0.5 0.2-0.8 [facility] HospitalEosinophils # (Auto)2018-02-26 04:54:00* Test Item Value Reference Range Interpretation Comments Eosinophils # (Auto) (test code = 711-2) 0.9 0.0-0.4 H [facility] HospitalBasophils # (Auto)2018-02-26 04:54:00* Test Item Value Reference Range Interpretation Comments Basophils # (Auto) (test code = 704-7) 0.1 0.0-0.1 [facility] HospitalAbsolute Immature Granulocyte (auto 2018-02-26 04:54:00* Test Item Value Reference Range Interpretation Comments Absolute Immature Granulocyte (auto (beckie t code = Absolute Immature Granulocyte (auto) 0.03 0-0.1 [facility] HospitalUrine Uuysm1306-90-68 20:43:00* Test Item Value Reference Range Interpretation Comments Urine Color (test code = 5778-6) YELLOW YELLOW [facility] HospitalUrine Sltdunw7632-96-08 20:43:00* Test Item Value Reference Range Interpretation Comments Urine Clarity (test code = 70063-6) HAZY CLEAR [facility] HospitalUrine Specific Bmdhoyz6447-08-16 20:43:00 * Test Item Value Reference Range Interpretation Comments Urine Specific [place] (test code = 5811-5) 1.030 1.010-1.02 5 H [facility] HospitalUrine lR3397-98-08 20:43:00* Test Item Value Reference Range Interpretation Comments Urine pH (test code = 00971-6) 6 5-7 [facility] HospitalUrine Leukocyte Ywxaqdqe3150-67-66 20:43:00* Test Item Value Reference Range Interpretation Comments Urine Leukocyte Esterase (test code = 5799-2) NEGATIVE NEGATIVE [facility] Rrcbamk8066-75-49 20:43:00* Test Item Value Reference Range Interpretation Comments Urine Nitrite (test code = 32308-5) NEGATIVE NEGATIVE [facility] HospitalUrine Mlgfoii7723-02-93 20:43:00* Test Item Value Reference Range Interpretation Comments Urine Protein (test code = 5804-0) 2+ NEGATIVE H [facility] HospitalUrine Glucose (UA)2018-02-25 20:43:00* Test Item Value Reference Range Interpretation Comments Urine Glucose (UA) (test code = 2349-9) NEGATIVE NEGATIVE [facility] HospitalUrine Ntlbaca1180-57-77 20:43:00* Test Item Value Reference Range Interpretation Comments Urine Ketones (test code = 58186-7) NEGATIVE NEGATIVE [facility] HospitalUrine Luysvwqbenep1236-96-77 20:43:00* Test Item Value Reference Range Interpretation Comments Urine Urobilinogen (test code = 10105-9) 0.2 0.2-1 [facility] HospitalUrine Fbmhnvjdc7639-62-97 20:43:00* Test Item Value Reference Range Interpretation Comments Urine Bilirubin (test code = 1978-6) NEGATIVE NEGATIVE [facility] HospitalUrine Zbwho0746-58-50 20:43:00* Test Item Value Reference Range Interpretation Comments Urine Blood (test code = 00596-5) TRACE NEGATIVE H [facility] HospitalUrine PXH2184-36-16 20:43:00* Test Item Value Reference Range Interpretation Comments Urine WBC (test code = 5821-4) 0-5 0-5 [facility] HospitalUrine YFX0319-14-25 20:43:00* Test Item Value Reference Range Interpretation Comments Urine RBC (test code = 51290-9) 6-10 0-5 H [facility] HospitalUrine Zzleiuwv9718-20-58 20:43:00* Test Item Value Reference Range Interpretation Comments Urine Bacteria (test code = 25662-4) FEW NONE [facility] HospitalUrine Epithelial Klxqs6498-32-39 20:43:00 * Test Item Value Reference Range Interpretation Comments Urine Epithelial Cells (test code = 87301-5) MODERATE NONE [facility] HospitalCT BRAIN VM0529-95-71 20:03:00 [facility] [address] [address] Patient Name: ROLANDO SINHA MR #: [id number] : Age/Sex: 67/F Req #: [id number] Adm Physician: Ordered by: SKINNY MONTESINOS MD Report #: [id number] Location: ER Room /Bed: Procedure: CT/CT BRAIN WO Exam Date: 02/25/18 Exam Time: 1925 REPORT STATUS: Signed EXAMINATION: Head CT HISTORY: [...] on 02/25/182003 COPY TO: SKINNY MONTESINOS MD Prothrombin Xdgx3077-15-87 20:01:00* Test Item Value Reference Range Interpretation Comments Prothrombin Time (test code = 5902-2) 16.1 11.9-14.5 H [facility] HospitalProthromb Time International Ratio 2018-02-25 20:01:00* Test Item Value Reference Range Interpretation Comments Prothromb Time International Ratio (test code = 6301-6) 1.40 Oral Anticoagulant Therapy INR Values:1. Low Intensity Therapy 1.5 - 2.02 . Moderate Intensity Therapy 2.0 - 3.03. High Intensity Therapy(1) 2.5 - 3. 54. High Intensity Therapy(2) 3.0 - 4.05. Panic Value INR > 5.0 [facility] HospitalActivated Partial Thromboplast Time 2018-02-25 20:01:00* Test Item Value Reference Range Interpretation Comments Activated Partial Thromboplast Time (test code = 13871-0) 34.3 23.8-35.5 [facility] HospitalCHEST SINGLE (PORTABLE)2018-02-25 19:44:00 [facility] [address] [place] [address] Patient Name: ROLANDO SINHA MR #: [id number] : 1950 Age/Sex: 67/F Req #: [id number] Adm Physician: Ordered by: SKINNY MONTESINOS MD Report #: [id number] Location: ER Room/Bed: Procedure: [id number] DX/CHEST SINGLE (PORTABLE) Exam Date: 02/25/18 Exam Time: [address] ATUS: Signed EXAM: CHEST SINGLE (PORTABLE), AP 1 view INDICATION: [place] like she was going to pass out [...]
--- NOTE | 2019-11-23 15:26 | Emergency Department Note ---
History of Present Illnes History of Present Illness Chief Complaint: Respiratory History of Present Illness This is a 69 year old female . Chief Complaint Comment CLIENT HERE FOR SHORTNESS OF BREATH, STATES THAT SHE CANT TAKE A FULL BREATH, ALSO REPORTS CHEST TIGHTNESS. 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 Arrival Mode: [facility] Treatment CHANGE CONTROL SPECIALIST: See EMS Report Onset (how long ago): day(s) (several days) Radiation: non-radiation, back, neck, extremity, abdomen, periumbilical, flank, proximal, distal, other Severity: moderate Onset quality: gradual Duration (how long): day(s) (several days) Timing of current episode: constant Progression: worsening Context: recent illness, recent surgery, recent immobilization, recent travel, trauma/injury, new medications, hx of DVT/PE, non-compliance w/ medications, other Relieving factors: none Treatments prior to arrival: none (CAROLIN PIMENTEL NP) Past Medical/Family History Physician Review I have reviewed the patient's past medical and family history. Any updates have been documented here. (CAROLIN PIMENTEL NP) Past Medical History Recent Fever: No Clinical Suspicion of Infectio: No New/Unexplained Change in Ment: No Past Medical History: Hypertension, Diabetes, A-Fib, Hyperlipedemia Other Medical History: stage 4 kidney disease, anemia Past Surgical History: Cholecysctectomy, Hysterectomy Other Surgery: Club feet surgery/reconstruction Right side port-a-cath placement (CAROLIN PIMENTEL NP) Social History Smoking Cessation: Never Smoker Alcohol Use: None Any Illegal Drug Use: No TB Exposure/Symptoms: No Physically hurt or threatened: No (CAROLIN PIMENTEL NP) Family History Family history of heart diseas: No (CAROLIN PIMENTEL NP) Other Any Pre-Existing Lines (PICC,: No (CAROLIN PIMENTEL NP) Review of Systems Review of Systems Constitutional: no symptoms EENTM: no symptoms Cardiovascular: no symptoms, chest pain, palpitations Respiratory: dyspnea Gastrointestinal: no symptoms Genitourinary: no symptoms Musculoskeletal: no symptoms Neurological: no symptoms Psychological: no symptoms Endocrine: no symptoms Hematological/Lymphatic: no symptoms Review of other systems All other systems reviewed and negative. (CAROLIN PIMENTEL NP) Physical Exam Related Data Allergies: Coded Allergies: codeine (Verified Allergy, Unknown, 02/25/18) cyclobenzaprine (Verified Allergy, Unknown, 02/25/18) meperidine (Verified Allergy, Unknown, 02/25/18) morphine (Verified Allergy, Unknown, 02/25/18) Triage Vital Signs Vital Signs Date Time Temp Pulse Resp B/P (MAP) Pulse Ox O2 Delivery O2 Flow Rate FiO2 11/23/19 14:51 97.8 106 16 115/92 99 Vital signs reviewed: Yes (CAROLIN PIMENTEL [employer] AGENT) Physical Exam CONSTITUTIONAL Constitutional: well-developed, well-nourished HENT HENT: normocephalic, atraumatic, oropharynx clear/moist, nose normal HENT L/R: left ext ear normal, right ext ear normal EYES Eyes: PERRL, conjunctivae normal NECK Neck: ROM normal PULMONARY Pulmonary: effort normal, breath sounds normal, other (c/o inability to take deep breath ); respiratory distress, rales, rhonchi, chest tenderness CARDIOVASCULAR Cardiovascular: regular rhythm, heart sounds normal, capillary refill normal, tachycardia (106), other (c/o palpitations ); LLE edema, RLE edema GASTROINTESTINAL Abdominal: soft, nontender, bowel sounds normal GENITOURINARY Genitourinary: exam deferred SKIN Skin: warm, dry MUSCULOSKELETAL Musculoskeletal: ROM normal NEUROLOGICAL Neurological: alert, oriented x 3, no gross motor or sensory deficits PSYCHOLOGICAL Psychological: mood/affect normal, judgement normal (CAROLIN PIMENTEL [employer]ENT) Results Laboratory Laboratory Laboratory Tests Test 11/23/19 16:12 White Blood Count 7.48 x10e3/uL (4.8-10.8) Red Blood Count 3.16 x10e6/uL (3.6-5.1) Hemoglobin 9.7 g/dL (12.0-16.0) Hematocrit 31.5 % (34.2-44.1) Mean Corpuscular Volume 99.7 fL (81-99) Mean Corpuscular Hemoglobin 30.7 pg (28-32) Mean Corpuscular Hemoglobin Concent 30.8 g/dL (31-35) Red Cell Distribution Width 13.6 % (11.7-14.4) Platelet Count 251 x10e3/uL (140-360) Neutrophils (%) (Auto) 64.8 % (38.7-80.0) Lymphocytes (%) (Auto) 20.2 % (18.0-39.1) Monocytes (%) (Auto) 5.5 % (4.4-11.3) Eosinophils (%) (Auto) 8.4 % (0.0-6.0) Basophils (%) (Auto) 0.8 % (0.0-1.0) Neutrophils # (Auto) 4.9 (2.1-6.9) Lymphocytes # (Auto) 1.5 (1.0-3.2) Monocytes # (Auto) 0.4 (0.2-0.8) Eosinophils # (Auto) 0.6 (0.0-0.4) Basophils # (Auto) 0.1 (0.0-0.1) Absolute Immature Granulocyte (auto 0.02 x10e3/uL (0-0.1) Prothrombin Time 15.0 seconds (11.9-14.5) Prothromb Time International Ratio 1.11 Activated Partial Thromboplast Time 39.4 seconds (23.8-35.5) Sodium Level 140 mmol/L (136-145) Potassium Level 5.0 mmol/L (3.5-5.1) Chloride Level 106 mmol/L (98-107) Carbon Dioxide Level 22 mmol/L (22-29) Anion Gap 17.0 mmol/L (8-16) Blood Urea Nitrogen 22 mg/dL (7-26) Creatinine 2.20 mg/dL (0.57-1.11) Estimat Glomerular Filtration Rate 22 ML/MIN (60-) BUN/Creatinine Ratio 10 (6-25) Glucose Level 107 mg/dL (74-118) Calcium Level 8.8 mg/dL (8.4-10.2) Magnesium Level 1.6 MG/DL (1.3-2.1) Total Bilirubin 0.3 mg/dL (0.2-1.2) Aspartate Amino Transf (AST/SGOT) 31 IU/L (5-34) Alanine Aminotransferase (ALT/SGPT) 20 IU/L (0-55) Alkaline Phosphatase 61 IU/L (40-150) Creatine Kinase 51 IU/L (29-168) B-Type Natriuretic Peptide 178.1 pg/mL (0-100) Total Protein 7.4 g/dL (6.5-8.1) Albumin 3.6 g/dL (3.5-5.0) Globulin 3.8 g/dL (2.3-3.5) Albumin/Globulin Ratio 0.9 (0.8-2.0) (CAROLIN PIMENTEL NP) Imaging Impressions cxr IMPRESSION: No focal pneumonia or pulmonary edema. Signed by: Harshad Gooden MD on 11/23/2019 4:21 PM Dictated By: HARSHAD GOODEN MD 20 Transcribed By: MACY on 11/23/191620 (CAROLIN PIMENTEL NP) Critical Care Time Subsequent provider I assumed direction of critical care for this patient from another provider of my specialty. (CAROLIN PIMENTEL NP) Assessment & Plan Reassessment Reassessment time: 15:25 Reassessment 69y f presented to ed c/o sob palpitations cp x 2 days - Dr Hernandez in eval pt status - lab ekg cxr ordered (CAROLIN PIMENTEL NP) Assessment & Plan Final Impression: (1) UNSPECIFIED ATRIAL FIBRILLATION (2) Chest pain Assessment & Plan Dr Hernandez in re eval pt status - disucssed lab ekg cxr results plan of care and need for admit Dr Hernandez spoke w/ Dr Lucille Hart will admit Dr Hart in eval pt status (CAROLIN PIMENTEL NP) Depart Disposition: ADMITTED Last Vital Signs Date Time Temp Pulse Resp B/P (MAP) Pulse Ox O2 Delivery O2 Flow Rate FiO2 11/23/19 14:51 97.8 106 16 115/92 99 (CAROLIN PIMENTEL NP) Home Meds Reported Medications Levothyroxine Sodium (SYNTHROID) 50 Mcg Tab, 25 MCG PO ACB, #30 TAB 09/05/19 Metoprolol Succinate (METOPROLOL SUCCINATE) 50 Mg Tab.er.24h, 50 MG PO DAILY, MG 09/05/19 Ondansetron Hcl* (ZOFRAN*) 4 Mg Tablet, 8 MG PO Q8H PRN for NAUSEA AND VOMITING 09/03/19 Cyanocobalamin (VITAMIN B-12) 1,000 Mcg Tab, 1000 MCG PO DAILY, #30 TAB 09/03/19 Amlodipine Besylate (AMLODIPINE BESYLATE) 10 Mg Tablet, 10 MG PO DAILY 09/03/19 Lisinopril/Hydrochlorothiazide (LISINOPRIL-HCTZ 10-12.5 MG TAB) 1 Each Tablet, 1 TAB PO DAILY 09/03/19 Calcitriol (CALCITRIOL) 0.25 Mcg Capsule, 0.25 MCG PO DAILY 09/03/19 Apixaban (Eliquis) 5 Mg Tablet, 5 MG PO BID 09/03/19 Amiodarone Hcl (AMIODARONE HCL) 200 Mg Tablet, 200 MG PO DAILY 03/01/18 Allopurinol (ALLOPURINOL) 100 Mg Tablet, 100 MG PO DAILY, #30 TAB 02/25/18 Omeprazole (OMEPRAZOLE) 20 Mg Capsule.dr, 20 MG PO DAILY 02/25/18 Gemfibrozil (LOPID) 600 Mg Tablet, 600 MG PO BID, TAB 02/25/18 Physician Attestation Provider Attestation The patient's history, exam findings, diagnostics, and a summary of any interventions or procedures was reviewed in detail with our ONOFRE. I personally interviewed and examined the patient, and I have reviewed and agree with the HPI andexam. My personal exam shows CV- IRIR TACHYCARDIC ~110. I confirm the diagnosis as documented by the ONOFRE. I have reviewed and agree with the care plan articulated in the disposition section. (GINA HERNANDEZ MD) CAROLIN PIMENTEL NP November 23, 2019 15:26 GINA HERNANDEZ MD November 23, 2019 17:16
[2019-11-23] MEDS ORDERED: METOPROLOL TARTRATE 25 MG TAB PO ONE (15:30)
[2019-11-23] MEDS ORDERED: ONDANSETRON HCL INJ 2MG/ML 2ML 2 MG/ML VIAL IV STA (15:53)
--- NOTE | 2019-11-23 16:25 | Diagnostic Imaging Report ---
EXAMINATION: CHEST SINGLE (PORTABLE) INDICATION: Chest pain, shortness of breath COMPARISON: Chest radiograph 09/03/2019 FINDINGS: LINES/TUBES:Right chest port unchanged. LUNGS:The lungs are well-inflated. No focal consolidation or pulmonary edema. PLEURA:No pleural effusion or pneumothorax. MEDIASTINUM:The cardiomediastinal silhouette appears normal in size and shape. BONES/SOFT TISSUES:No acute osseous injury. ABDOMEN:No free air under the diaphragm. IMPRESSION: No focal pneumonia or pulmonary edema. Signed by: Tristan Lay MD on 11/23/2019 4:21 PM
[2019-11-23 16:33] LABS: BASOPHILS # (AUTO) 0.1 (0.0-0.1); BASOPHILS % 0.8 % (0.0-1.0); EOSINOPHILS # (AUTO) 0.6 (0.0-0.4); EOSINOPHILS % 8.4 % (0.0-6.0); HEMATOCRIT 31.5 % (34.2-44.1); HEMOGLOBIN 9.7 g/dL (12.0-16.0); LYMPHOCYTES # (AUTO) 1.5 (1.0-3.2); LYMPHOCYTES % 20.2 % (18.0-39.1); MEAN CORPUSCULAR HEMOGLOBIN 30.7 pg (28-32); MEAN CORPUSCULAR HGB CONC 30.8 g/dL (31-35); MEAN CORPUSCULAR VOLUME 99.7 fL (81-99); MONOCYTES # (AUTO) 0.4 (0.2-0.8); MONOCYTES % 5.5 % (4.4-11.3); NEUTROPHILS # (AUTO) 4.9 (2.1-6.9); NEUTROPHILS % 64.8 % (38.7-80.0); PLATELET COUNT 251 x10e3/uL (140-360); RED BLOOD COUNT 3.16 x10e6/uL (3.6-5.1); RED CELL DISTRIBUTION WIDTH 13.6 % (11.7-14.4)
[2019-11-23 16:43] LABS: INR 1.11
[2019-11-23 16:44] LABS: PARTIAL THROMBOPLASTIN TIME 39.4 seconds (23.8-35.5)
[2019-11-23] MEDS ORDERED: NITROGLYCERIN 0.4 MG SUBL SL PRN (16:45)
[2019-11-23] MEDS: FAMOTIDINE 20 MG/2 ML VIAL IV SCH (16:54)
[2019-11-23 16:55] LABS: ALANINE AMINOTRANSFERASE 20 IU/L (0-55); ALBUMIN 3.6 g/dL (3.5-5.0); ALBUMIN/GLOBULIN RATIO 0.9 (0.8-2.0); ALKALINE PHOSPHATASE 61 IU/L (40-150); BLOOD UREA NITROGEN 22 mg/dL (7-26); BUN/CREATININE RATIO 10 (6-25); CALCIUM 8.8 mg/dL (8.4-10.2); CARBON DIOXIDE 22 mmol/L (22-29); CHLORIDE 106 mmol/L (98-107); CREATINE KINASE 51 IU/L (29-168); EST GLOMERULAR FILTRATION RATE 22 ML/MIN (60-); GLUCOSE 107 mg/dL (74-118); MAGNESIUM 1.6 MG/DL (1.3-2.1); SODIUM 140 mmol/L (136-145)
--- OUTSIDE RECORDS SUMMARY | 2019-11-23 17:18 | XMS REPORT ---
Author Author [facility] t Organization [facility] Address [address] [place] [address] Phone Unavailable Care Team Providers Care Negative Turner Apprentice Name Role Phone ABDIAS NGUYEN DO PCP SWEET, Mis LAIRD Attphys Unavailable ARMENDARIZ, SOUHEIL Attphys Unavailable ARMENDARIZ, SOUHEIL Admphys Unavailable Payers Payer Name Policy Type Policy Number Effective Date Expiration Date Lucille baird Medicare A & B [id number] 2002 00:00:00 [facility] [id number] [facility] Problems Condition Name Condition Details Condition Category Status Onset Date Resolution Date Last Treatment Date Treating Clinician Comments Source Chronic atrial fibrillation Chronic a-fib Problem Active [facility] Pre-syncope Near syncope Problem Active [facility] Chronic kidney disease CKD (chronic kidney disease) Problem Active [facility] Chest pain Chest pain Problem Active [facility] History of atrial fibrillation History of atrial fibrillation Problem Active [facility] Allergies, Adverse Reactions, Alerts Allergy Name Allergy Type Status Severity Reaction(s) Onset Date Inacti ve Date Treating Clinician Comments Source Penicillins DA Active 2018-11-24 00:00:00 [facility] morphine DA Active 2018-11-24 00:00:00 [facility] meperidine DA Active 2018-11-24 00:00:00 [facility] avocado DA Active SV 2018-11-24 00:00:00 [facility] avocado FA Active SV 2018-11-24 00:00:00 [facility] Morphine Allergy to Substance Active 2018-02-25 00:00:00 [facility] Codeine Allergy to Substance Active 2018-02-25 00:00:00 [facility] Meperidine Allergy to Substance Active 2018-02-25 00:00:00 [facility] Cyclobenzaprine Allergy to Substance Active 2018-02-25 00:0 0:00 [facility] Medications Ordered Medication Name Filled Medication Name Start Date Stop Da te Current Medication? Ordering Clinician Indication Dosage Frequency Signature (SIG) Comments Components Source Allopurinol 100 Mg Tablet Allopurinol 100 Mg Tablet Yes 100 Daily [facility] Amiodarone Hcl 200 Mg Tablet Amiodarone Hcl 200 Mg Tablet Y es 200 Daily [facility] Amlodipine Besylate 10 Mg Tablet Amlodipine Besylate 10 Mg Tablet Yes 10 Daily [facility] Apixaban (Eliquis) 5 Mg Tablet Apixaban (Eliquis) 5 Mg Tablet Yes 5 Twice A Day [facility] Calcitriol 0.25 Mcg Capsule Calcitriol 0.25 Mcg Capsule Yes .25 Daily [facility] Cyanocobalamin (Vitamin B-12) 1,000 Mcg Tab Cyanocobal laughlin (Vitamin B-12) 1,000 Mcg Tab Yes 1000 Daily [facility] Gemfibrozil (Lopid) 600 Mg Tablet Gemfibrozil (Lopid) 600 Mg Tablet Yes 600 Twice A Day [facility] Levothyroxine Sodium (Synthroid) 50 Mcg Tab Levothyrox ine Sodium (Synthroid) 50 Mcg Tab Yes 25 Before Breakfast [facility] Lisinopril/Hydrochlorothiazide (Lisinopril-Hctz 10-12. 5 Mg Tab) 1 Each Tablet Lisinopril/Hydrochlorothiazide (Lisinopril-Hctz 10-12.5 Mg Tab) 1 Each Tablet Yes 1 Daily [facility] Metoprolol Succinate 50 Mg Tab.er.24h Metoprolol Succinate 50 Mg Ta b.er.24h Yes 50 Daily [facility] Omeprazole 20 Mg Capsule. Omeprazole 20 Mg Capsule. Yes 20 Daily [facility] Ondansetron Hcl (Zofran*) 4 Mg Tablet Ondansetron Hcl (Zofran*) 4 M g Tablet Yes 8 Every 8 Hours as needed for Nausea And V omiting [facility] Metoprolol Succinate 25 Mg Tab.er.24h, 25 Mg Oral Meto prolol Succinate 25 Mg Tab.er.24h, 25 Mg Oral 2019-09-05 00:00:00 No 25 D aily [facility] Atorvastatin Calcium 20 Mg Tablet, 20 Mg Oral Atorvast atin Calcium 20 Mg Tablet, 20 Mg Oral 2019-09-03 00:00:00 No 20 Bedtime [facility] Cholecalciferol (Vitamin D3) (Vitamin D) 1,000 [place], [address] Unit Oral Cholecalciferol (Vitamin D3) (Vitamin D) 1,000 Unit Table[place], [address] Unit Oral 2019-09-03 00:00:00 [place] [address]35 Q7days [facility] Lisinopril 10 Mg Tablet, 10 Mg Oral Lisinopril 10 Mg Tablet, 10 Mg Oral 2019-09-03 00:00:00 No 10 Daily [facility] Metoprolol Succinate 50 Mg Tab.er.24h, 100 Mg Oral Met oprolol Succinate 50 Mg Tab.er.24h, 100 Mg Oral 2019-09-03 00:00:00 No 100 Twice A Day [facility] Rivaroxaban (Xarelto) 20 Mg Tablet, 20 Mg Oral Rivarox aban (Xarelto) 20 Mg Tablet, 20 Mg Oral 2019-09-03 00:00:00 No 20 Daily [facility] Metorolsuc , 50 Mg Oral Metorolsuc , 50 Mg Oral 2018-03-01 00:00 :00 No 50 Twice A Day [facility] Cholecalciferol (Vitamin D3) (Vitamin D) 1,000 [place], [address] Unit Oral Cholecalciferol (Vitamin D3) (Vitamin D) 1,000 Unit Tablet, [address]3609 Unit Oral 2018-02-25 00:00:00 [place] [address] Weekly [facility] Procedures This patient has no known procedures. Encounters Start Date/Time End Date/Time Encounter Type Admission Type [facility] Care Department Encounter ID Source 2019-09-03 12:57:00 2019-09-05 18:14:00 Discharged Inpatient (obs) 1 GINA HERNANDEZ [facility] [id number] [facility] 2018-02-25 21:02:00 2018-02-27 16:21:00 Discharged Inpatient (obs) 1 ARMENDARIZ DAVIN [facility] [id number] [facility] Results Test Description Test Time Test Comments Results Result Comments Source CHEST SINGLE (PORTABLE) 2019-11-23 16:20:00 [place] [address] Patient Name: ROLANDO SINHA MR #: [id number] : 1950 Age/Sex: 69/F Req #: [id number] Adm Physician: Ordered by: GINA HERNANDEZ MD Report #: [id number] Location: ER Room/Bed: Procedure: [id number] DX/CHEST SINGLE (PORTABLE) Exam Date: Exam Time: REPORT STATUS: Signed EXAMINATION: CHEST SINGLE (PORTABLE) INDICATION: Chest pain, shortness of breath COMPARISON: Chest radiograph 09/03/2019 FINDINGS: LINES/TUBES:Right chest port unchanged. LUNGS:The lungs are well-inflated. No focal consolidation or pulmonary edema. PLEURA:No pleural effusion or pneumothorax. MEDIASTINUM:The cardiomediastinal silhouette appears normal in size and shape. BONES/SOFT TISSUES:No acute osseous injury. ABDOMEN:No free air under the diaphragm. IMPRESSION: No focal pneumonia or pulmonary edema. Signed by: Harshad Gooden MD on 11/23/2019 4:21 PM Dictated By: HARSHAD GOODEN MD 20 Transcribed By: MACY on 11/23/19 162 COPY TO: GINA HERNANDEZ MD Bedside Glucose 2019-09-05 16:04:00 Test Item Bedside Glucose (test code = 30451-0) 146 70-120 H Meter ID: [id number] [facility] 2019-09-05 07:21:00* Test Item Value Reference Range Interpretation Comments Sodium Level (test code = 2951-2) 140 136-145 [facility]Potassium [id number] 07:21:00* Test Item Value Reference Range Interpretation Comments Potassium Level (test code = 2823-3) 4.5 3.5-5.1 [facility]Chloride Jrsgm0080-23-02 07:21:00* Test Item Value Reference Range Interpretation Comments Chloride Level (test code = 2075-0) 107 98-107 [facility]Carbon Dioxide Lyksa5739-52-74 07:21:00* Test Item Value Reference Range Interpretation Comments Carbon Dioxide Level (test code = 2028-9) 24 22-29 [facility]landsAnion [id number] 07:21:00* Test Item Value Reference Range Interpretation Comments Anion Gap (test code = 91869-0) 13.5 8-16 [facility]landsBlood Urea Majxsngh5996-83-01 07:21:00* Test Item Value Reference Range Interpretation Comments Blood Urea Nitrogen (test code = 3094-0) 44 7-26 H [facility]Creatinine2020-03-11 07:21:00* Test Item Value Reference Range Interpretation Comments Creatinine (test code = 2160-0) 3.04 0.57-1.11 H [facility]BUN/Creatinine Xoxya9535-94-16 07:21:00* Test Item Value Reference Range Interpretation Comments BUN/Creatinine Ratio (test code = 3097-3) 14 6-25 [facility]landsEstimat Glomerular Filtration Rate 2019-09-05 07:21:00* Test Item Value Reference Range Interpretation Comments Estimat Glomerular Filtration Rate (test code = 268389429) 15 >60 L Ranges were taken from the National Kidney Disease Education Program and the [facility] literature.Reference ranges:60 or greater: Yzozjy39-18 ( for 3 consecutive months): Chronic kidney disease 15 or less: Kidney failureCHI [facility] AreaGlucose Vikpy8998-62-76 07:21:00* Test Item Value Reference Range Interpretation Comments Glucose Level (test code = ZWE9149) 121 74-118 H [facility]Calcium Tgpce8540-58-02 07:21:00* Test Item Value Reference Range Interpretation Comments Calcium Level (test code = 16899-8) 9.8 8.4-10.2 [facility]landsWhite Blood Azsuz4060-88-19 06:38:00* Test Item Value Reference Range Interpretation Comments White Blood Count (test code = 6690-2) 6.42 4.8-10.8 [facility]landsRed Blood Yotcs8766-37-37 06:38:00* Test Item Value Reference Range Interpretation Comments Red Blood Count (test code = 789-8) 3.36 3.6-5.1 L [facility]Hemoglobin2020-03-11 06:38:00* Test Item Value Reference Range Interpretation Comments Hemoglobin (test code = 71855-4) 10.7 12.0-16.0 L [facility]Hematocrit2020-03-11 06:38:00* Test Item Value Reference Range Interpretation Comments Hematocrit (test code = 4544-3) 33.7 34.2-44.1 L [facility]landsMean Corpuscular Rzbjvl7503-78-94 06:38:00* Test Item Value Reference Range Interpretation Comments Mean Corpuscular Volume (test code = 787-2) 100.3 81-99 H [facility]landsMean Corpuscular Twiyimhwxn6639-47-57 06:38:00* Test Item Value Reference Range Interpretation Comments Mean Corpuscular Hemoglobin (test code = 785-6) 31.8 28-32 [facility]landsMean Corpuscular Hemoglobin Concent 2019-09-05 06:38:00* Test Item Value Reference Range Interpretation Comments Mean Corpuscular Hemoglobin Concent (test code = 786-4) 31.8 31-35 [facility]landsRed Cell Distribution Khfes3913-58-07 06:38:00* Test Item Value Reference Range Interpretation Comments Red Cell Distribution Width (test code = 74078-6) 12.6 11.7 -14.4 [facility]landsPlatelet Jwncl0612-33-12 06:38:00* Test Item Value Reference Range Interpretation Comments Platelet Count (test code = 777-3) 214 140-360 [facility]landsNeutrophils (%) (Auto)2019-09-05 06:38:00 * Test Item Value Reference Range Interpretation Comments Neutrophils (%) (Auto) (test code = 31908-7) 60.1 38.7-80.0 [facility]landsLymphocytes (%) (Auto)2019-09-05 06:38:00 * Test Item Value Reference Range Interpretation Comments Lymphocytes (%) (Auto) (test code = 736-9) 25.4 18.0-39.1 [facility]landsMonocytes (%) (Auto)2019-09-05 06:38:00* Test Item Value Reference Range Interpretation Comments Monocytes (%) (Auto) (test code = 5905-5) 6.9 4.4-11.3 [facility]Eosinophils (%) (Auto)2019-09-05 06:38:00 * Test Item Value Reference Range Interpretation Comments Eosinophils (%) (Auto) (test code = 713-8) 6.2 0.0-6.0 H [facility]Basophils (%) (Auto)2019-09-05 06:38:00* Test Item Value Reference Range Interpretation Comments Basophils (%) (Auto) (test code = 706-2) 0.8 0.0-1.0 [facility]landsIM GRANULOCYTES %2019-09-05 06:38:00* Test Item Value Reference Range Interpretation Comments IM GRANULOCYTES % (test code = IM GRANULOCYTES %) 0.6 0.0- 1.0 [facility]Neutrophils # (Auto)2019-09-05 06:38:00* Test Item Value Reference Range Interpretation Comments Neutrophils # (Auto) (test code = 751-8) 3.9 2.1-6.9 [facility]landsLymphocytes # (Auto)2019-09-05 06:38:00* Test Item Value Reference Range Interpretation Comments Lymphocytes # (Auto) (test code = 47608-3) 1.6 1.0-3.2 [facility]landsMonocytes # (Auto)2019-09-05 06:38:00* Test Item Value Reference Range Interpretation Comments Monocytes # (Auto) (test code = 742-7) 0.4 0.2-0.8 [facility]Eosinophils # (Auto)2019-09-05 06:38:00* Test Item Value Reference Range Interpretation Comments Eosinophils # (Auto) (test code = 711-2) 0.4 0.0-0.4 [facility]Basophils # (Auto)2019-09-05 06:38:00* Test Item Value Reference Range Interpretation Comments Basophils # (Auto) (test code = 704-7) 0.1 0.0-0.1 [facility]landsAbsolute Immature Granulocyte (auto 2019-09-05 06:38:00* Test Item Value Reference Range Interpretation Comments Absolute Immature Granulocyte (auto (beckie t code = Absolute Immature Granulocyte (auto) 0.04 0-0.1 [facility]landsHemoglobin A1c Dughrnk4422-26-69 11:41:00 * Test Item Value Reference Range Interpretation Comments Hemoglobin A1c Percent (test code = Hemoglobin A1c Percent) 5.9 4.0-7.0 [facility]landsCreatine Ijkbqj1808-47-66 07:44:00* Test Item Value Reference Range Interpretation Comments Creatine Kinase (test code = 2157-6) 65 29-168 [facility]landsCreatine Kinase [id number] 07:36:00* Test Item Value Reference Range Interpretation Comments Creatine Kinase MB (test code = 12176-4) < 1.00 0-4.3 [facility]landsTroponin [id number] 07:36:00* Test Item Value Reference Range Interpretation Comments Troponin I (test code = 85517-3) < 0.05 0.0-0.40 [facility]landsTotal Sbakkscsz7513-79-94 07:07:00* Test Item Value Reference Range Interpretation Comments Total Bilirubin (test code = 1975-2) 0.4 0.2-1.2 [facility]landsAspartate Amino Transf (AST/SGOT) 2019-09-04 07:07:00* Test Item Value Reference Range Interpretation Comments Aspartate Amino Transf (AST/SGOT) (test code = Aspartate Amino Transf (AST/SGOT)) 31 5-34 [facility]landsAlanine Aminotransferase (ALT/SGPT) 2019-09-04 07:07:00* Test Item Value Reference Range Interpretation Comments Alanine Aminotransferase (ALT/SGPT) (test code = 1742-6) 19 0-55 [facility]landsTotal Igugpsi0791-95-91 07:07:00* Test Item Value Reference Range Interpretation Comments Total Protein (test code = 2885-2) 7.2 6.5-8.1 [facility]landsAlbumin2020-03-10 07:07:00* Test Item Value Reference Range Interpretation Comments Albumin (test code = 1751-7) 3.4 3.5-5.0 L [facility]landsGlobulin2020-03-10 07:07:00* Test Item Value Reference Range Interpretation Comments Globulin (test code = 28722-6) 3.8 2.3-3.5 H [facility]landsAlbumin/Globulin Hzccj6783-13-61 07:07:00 * Test Item Value Reference Range Interpretation Comments Albumin/Globulin Ratio (test code = 1759-0) 0.9 0.8-2.0 [facility]landsAlkaline Czcxvlfjxwy7828-44-95 07:07:00* Test Item Value Reference Range Interpretation Comments Alkaline Phosphatase (test code = 6768-6) 59 40-150 [facility]landsTriglycerides Zpjtp0687-59-49 07:07:00* Test Item Value Reference Range Interpretation Comments Triglycerides Level (test code = 2571-8) 184 0-149 H [facility]landsCholesterol Murah2066-46-27 07:07:00* Test Item Value Reference Range Interpretation Comments Cholesterol Level (test code = 2093-3) 177 0-199 Less than 200 mg/dL Low Qnki449 - 239 mg/dL Borderline Mlun513 m g/dl and greater High Risk [facility]landsLDL Ugigbwiohzx3175-87-00 07:07:00* Test Item Value Reference Range Interpretation Comments LDL Cholesterol (test code = 2089-1) 109 60-130 [facility]landsHDL Uwaveblcbtt3811-66-34 07:07:00* Test Item Value Reference Range Interpretation Comments HDL Cholesterol (test code = 2085-9) 31 40-60 L [facility]landsCholesterol/HDL Utpju7368-77-22 07:07:00 * Test Item Value Reference Range Interpretation Comments Cholesterol/HDL Ratio (test code = 9830-1) 5.7 3.0-3.6 H [facility]landsFree Thyroxine Nhszi5989-95-63 12:49:00* Test Item Value Reference Range Interpretation Comments Free Thyroxine Index (test code = 75365-5) 1.5428 1.4-3.8 [facility]landsThyroxine (T4)2019-09-03 12:49:00* Test Item Value Reference Range Interpretation Comments Thyroxine (T4) (test code = 3026-2) 5.45 4.5-10.9 Our current method for Total T4 is not recommended for use as the only marker fo r evaluating patients for thyroid disorders.[facility]landsTriiodothyronine (T3) Erasyx4735-82-44 12:49:00* Test Item Value Reference Range Interpretation Comments Triiodothyronine (T3) Uptake (test code = 3050-2) 28.31 22.5 -37.0 [facility]landsThyroid Stimulating Hormone (TSH) 2019-09-03 12:49:00* Test Item Value Reference Range Interpretation Comments Thyroid Stimulating Hormone (TSH) (test code = 97096-6) 9.818 0.350-4.940 H [facility]landsUrine [id number] 11:33:00* Test Item Value Reference Range Interpretation Comments Urine WBC (test code = 5821-4) 0-5 0-5 [facility]landsUrine [id number] 11:33:00* Test Item Value Reference Range Interpretation Comments Urine RBC (test code = 71625-5) 0-5 0-5 [facility]landsUrine Amlsarnj7654-00-88 11:33:00* Test Item Value Reference Range Interpretation Comments Urine Bacteria (test code = 56802-9) FEW NONE [facility]landsUrine Epithelial Wjbca2073-53-80 11:33:00 * Test Item Value Reference Range Interpretation Comments Urine Epithelial Cells (test code = 32096-3) RARE NONE [facility]landsB-Type Natriuretic Ywelwxu6559-35-22 11:33:00* Test Item Value Reference Range Interpretation Comments B-Type Natriuretic Peptide (test code = 59287-3) 131.1 0-100 H [facility]landsCHEST SINGLE (PORTABLE)2019-09-03 11:28:00 [facility] [address] [place] [address] Patient Name: ROLANDO SINHA MR #: [id number] : 1950 Age/Sex: 69/F Req #: [id number] Adm Physician: Ordered by: GINA HERNANDEZ MD Report #: [id number] Location: ER Room/Bed: Procedure: [id number] DX/FIORELLA ST SINGLE (PORTABLE) Exam Date: 09/03/19 [...] 1129 COPY TO: GINA HERNANDEZ MD Magnesium Wyrqa0600-00-29 11:23:00* Test Item Value Reference Range Interpretation Comments Magnesium Level (test code = 66731-1) 1.7 1.3-2.1 [facility]landsUrine Jnyog6585-51-73 11:20:00* Test Item Value Reference Range Interpretation Comments Urine Color (test code = 5778-6) YELLOW YELLOW [facility]landsUrine Volzrfc0235-39-83 11:20:00* Test Item Value Reference Range Interpretation Comments Urine Clarity (test code = 52562-4) CLEAR CLEAR [facility]landsUrine Specific Tlpmyfb3313-77-88 11:20:00 * Test Item Value Reference Range Interpretation Comments Urine Specific [place] (test code = 5811-5) 1.020 1.010-1.02 5 [facility]landsUrine [id number] 11:20:00* Test Item Value Reference Range Interpretation Comments Urine pH (test code = 38834-9) 6.5 5-7 [facility]landsUrine Leukocyte Olyrhvhm5225-89-31 11:20:00* Test Item Value Reference Range Interpretation Comments Urine Leukocyte Esterase (test code = 5799-2) NEGATIVE NEGATIVE [facility] Jzympzb4832-89-46 11:20:00* Test Item Value Reference Range Interpretation Comments Urine Nitrite (test code = 01602-1) NEGATIVE NEGATIVE [facility]landsUrine Bfypsgh7974-45-65 11:20:00* Test Item Value Reference Range Interpretation Comments Urine Protein (test code = 5804-0) 2+ NEGATIVE H [facility] Glucose (UA)2019-09-03 11:20:00* Test Item Value Reference Range Interpretation Comments Urine Glucose (UA) (test code = 2349-9) NEGATIVE NEGATIVE [facility] Vbaygmt6143-93-90 11:20:00* Test Item Value Reference Range Interpretation Comments Urine Ketones (test code = 64394-6) NEGATIVE NEGATIVE [facility] Yblmzufciqjd4906-24-21 11:20:00* Test Item Value Reference Range Interpretation Comments Urine Urobilinogen (test code = 12329-9) 0.2 0.2-1 [facility]landsUrine Xrwgquucs5310-42-23 11:20:00* Test Item Value Reference Range Interpretation Comments Urine Bilirubin (test code = 1978-6) NEGATIVE NEGATIVE [facility]landsUrine Jqprp5922-56-70 11:20:00* Test Item Value Reference Range Interpretation Comments Urine Blood (test code = 67964-9) NEGATIVE NEGATIVE [facility]landsProthrombin [id number] 11:18:00* Test Item Value Reference Range Interpretation Comments Prothrombin Time (test code = 5902-2) 14.6 11.9-14.5 H [facility]landsProthromb Time International Ratio 2019-09-03 11:18:00* Test Item Value Reference Range Interpretation Comments Prothromb Time International Ratio (test code = 6301-6) 1.07 Oral Anticoagulant Therapy INR Values:1. Low Intensity Therapy 1.5 - 2.02 . Moderate Intensity Therapy 2.0 - 3.03. High Intensity Therapy(1) 2.5 - 3. 54. High Intensity Therapy(2) 3.0 - 4.05. Panic Value INR > 5.0 [facility]landsActivated Partial Thromboplast Time 2019-09-03 11:18:00* Test Item Value Reference Range Interpretation Comments Activated Partial Thromboplast Time (test code = 36895-2) 35.3 23.8-35.5 [facility]landsRENAL FUNCTION [id number] 08:25:00* Test Item Value Reference Range Interpretation [...] PHOS) 3.5 mg/dL 2.5-4.9 N RENAL FUNCTION [id number] 08:20:00* Test Item Value Reference Range Interpretation [...] code = PHOS) mg/dL 2.5-4.9 RENAL FUNCTION [id number] 20:06:00* Test Item Value Reference Range Interpretation [...] = PHOS) 3.1 mg/dL 2.5-4.9 N URIC [id number] 20:06:00* Test Item Value Reference Range Interpretation Comments URIC ACID (test code = URIC) 5.5 mg/dL 2.6-7.2 N VITD,25 [place] [id number] 20:06:00* Test Item Value Reference Range Interpretation Comments VITAMIN D 25-HYDROXY (test code = VITD25) 43 ng/mL () Reference Range:All Ages: Target levels 30 - 100Test performed at: [facility] [address] VITD,25-OH, D2 (test code = IZED21P0) 6.0 ng/mL () VITD,25-OH, D3 (test code = DQAM07L4) 37 ng/mL () Performed At: [facility] [place], [place] [id number] Misha Wing MD Ph:[phone] RENAL FUNCTION [id number] 15:22:00* Test Item Value Reference Range Interpretation [...] = PHOS) 3.1 mg/dL 2.5-4.9 N URIC [id number] 15:22:00* Test Item Value Reference Range Interpretation Comments URIC ACID (test code = URIC) 5.5 mg/dL 2.6-7.2 N VITD,25 [place] [id number] 15:22:00* Test Item Value Reference Range Interpretation Comments VITAMIN D 25-HYDROXY (test code = VITD25) ng/mL 30-100 VITD,25-OH, D2 (test code = FRBK34F0) ng/mL VITD,25-OH, D3 (test code = AABB28F8) ng/mL RENAL FUNCTION [id number] 15:10:00* Test Item Value Reference Range Interpretation [...] (test code = PHOS) mg/dL 2.5-4.9 URIC [id number] 15:10:00* Test Item Value Reference Range Interpretation Comments URIC ACID (test code = URIC) mg/dL 2.6-7.2 VITD,25 [place] [id number] 15:10:00* Test Item Value Reference Range Interpretation Comments VITAMIN D 25-HYDROXY (test code = VITD25) ng/mL 30-100 VITD,25-OH, D2 (test code = GXOS47N7) ng/mL VITD,25-OH, D3 (test code = SGAV30W1) ng/mL PTH INTACT [id number] 12:36:00* Test Item Value Reference Range Interpretation Comments CALCIUM (test code = CA) 9.2 mg/dL 8.5-10.1 N PARATHYROID HORMONE INTACT (test code = PARAI) 255.40 pgram/mL 8.4- 88 H UR PROTEIN/CREATININE [id number] 12:23:00* Test Item Value Reference Range Interpretation [...] 1.76 RATIO 0.0-0. 20 H PTH INTACT [id number] 12:01:00* Test Item Value Reference Range Interpretation Comments CALCIUM (test code = CA) 9.2 mg/dL 8.5-10.1 N PARATHYROID HORMONE INTACT (test code = PARAI) pgram/mL 8.4-88 CBC W/AUTO [id number] 10:40:00* Test Item Value Reference Range Interpretation [...] code = NRBC#) 0.00 K/mm3 0.0-0.1 N [id number] 04:53:00* Test Item Value Reference Range Interpretation Comments HEMOGLOBIN (test code = HGB) 9.9 gram/dL 11.5-15.5 L [id number] 04:53:00* Test Item Value Reference Range Interpretation Comments HEMATOCRIT (test code = HCT) 31.2 % 36.0-46.0 L HGB [id number] 18:09:00* Test Item Value Reference Range Interpretation Comments HEMOGLOBIN (test code = HGB) 9.8 gram/dL 11.5-15.5 L HEMATOCRIT (test code = HCT) 30.2 % 36.0-46.0 L PROTHROMBIN [id number] 17:00:00* Test Item Value Reference Range Interpretation [...] PATIENT ON ANTICOAGULANTS? NSPECIMEN COMMENTS: STATCOMMENTS TO DIRECTOR REHABILITATION PROGRAM: STATCBC W/AUTO [id number] 16:54:00* Test Item Value Reference Range Interpretation [...] K/mm3 0.0-0.1 N SPECIMEN COMMENTS: STATCOMMENTS TO DIRECTOR REHABILITATION PROGRAM: STATCOMPREHENSIVE METABOLIC [id number] 16:52:00* Test Item Value Reference Range Interpretation [...] change in reagent. SPECIMEN COMMENTS: STATCOMMENTS TO DIRECTOR REHABILITATION PROGRAM: STATCOMPREHENSIVE METABOLIC [id number] 16:48:00* Test Item Value Reference Range Interpretation [...] ALKP) IUnit/L 45-117 SPECIMEN COMMENTS: STATCOMMENTS TO DIRECTOR REHABILITATION PROGRAM: STATCOMPREHENSIVE METABOLIC [id number] 16:48:00* Test Item Value Reference Range Interpretation [...] ALKP) IUnit/L 45-117 SPECIMEN COMMENTS: STATCOMMENTS TO DIRECTOR REHABILITATION PROGRAM: STAT- XR CHEST 1 [id number] 08:44:00 FAX: Abdias Schwartz [phone] [place]: St: REG Name: ROLANDO FONSECA [facility] : [birth year] Age/S: 68/F [address] [facility] Unit #: [id number] Loc: [place] [address] Phys: Haroon Foreman MD Acct: [id number] Dis Date: Status: REG [facility] PHONE #: [phone] Exam Date: 11/28/2018 08 FAX #: [phone] Reason: line placement EXAMS: CPT CODE: [id number] XR CHEST 1 V 22334 HISTORY: Line placement. COMPARISON: None available. Right [...] Trnscrd Date/Time/By: 11/28/2018 (0 844) : By: [email or web address] Orig Print D/T: S: 11/28/2018 (3946) PAGE 1 Signed Report [id number] 07:23:00* Test Item Value Reference Range Interpretation Comments GLUBED (test code = GLUBED) 107 mg/dL 74-106 H Performed by certified boring machine operator double end at [facility] BASIC METABOLIC [id number] 14:26:00* Test Item Value Reference Range Interpretation [...] CA) 9.2 mg/dL 8.5-10.1 N BASIC METABOLIC [id number] 13:58:00* Test Item Value Reference Range Interpretation [...] CA) 9.2 mg/dL 8.5-10.1 N CBC W/AUTO [id number] 12:16:00* Test Item Value Reference Range Interpretation [...] = MDIFF) NO, ONLY SCAN NEEDED DIFFERENTIAL [id number] 12:16:00* Test Item Value Reference Range Interpretation Comments STAIN ACCEPTABILITY (test code = STN ACCEPTABLE) STAIN ACCEPTABLE PLATELET ESTIMATE (test code = PLTEST) ADEQUATE PLATELET MORPHOLOGY (test code = PLTMORPH) NORMAL CBC W/AUTO [id number] 12:11:00* Test Item Value Reference Range Interpretation [...] = MDIFF) NO, ONLY SCAN NEEDED DIFFERENTIAL [id number] 12:11:00* Test Item Value Reference Range Interpretation Comments STAIN ACCEPTABILITY (test code = STN ACCEPTABLE) STAIN ACCEPTABLE POLYCHROMASIA (test code = POLC) PLATELET ESTIMATE (test code = PLTEST) ADEQUATE PLATELET MORPHOLOGY (test code = PLTMORPH) NORMAL CBC W/AUTO [id number] 11:22:00* Test Item Value Reference Range Interpretation [...] = MDIFF) NO, ONLY SCAN NEEDED DIFFERENTIAL [id number] 11:22:00* Test Item Value Reference Range Interpretation Comments STAIN ACCEPTABILITY (test code = STN ACCEPTABLE) CABOT RINGS (test code = CAB) MORPHOLOGY COMMENT (test code = MOC) PLATELET ESTIMATE (test code = PLTEST) PLATELET MORPHOLOGY (test code = PLTMORPH) CBC W/AUTO [id number] 11:22:00* Test Item Value Reference Range Interpretation [...] = MDIFF) NO, ONLY SCAN NEEDED DIFFERENTIAL [id number] 11:22:00* Test Item Value Reference Range Interpretation Comments STAIN ACCEPTABILITY (test code = STN ACCEPTABLE) CABOT RINGS (test code = CAB) MORPHOLOGY COMMENT (test code = MOC) PLATELET ESTIMATE (test code = PLTEST) PLATELET MORPHOLOGY (test code = PLTMORPH) CBC W/AUTO [id number] 11:22:00* Test Item Value Reference Range Interpretation [...] = MDIFF) NO, ONLY SCAN NEEDED DIFFERENTIAL [id number] 11:22:00* Test Item Value Reference Range Interpretation Comments STAIN ACCEPTABILITY (test code = STN ACCEPTABLE) MORPHOLOGY COMMENT (test code = MOC) PLATELET ESTIMATE (test code = PLTEST) PLATELET MORPHOLOGY (test code = PLTMORPH) CBC W/AUTO [id number] 11:22:00* Test Item Value Reference Range Interpretation [...] = MDIFF) NO, ONLY SCAN NEEDED DIFFERENTIAL [id number] 11:22:00* Test Item Value Reference Range Interpretation Comments STAIN ACCEPTABILITY (test code = STN ACCEPTABLE) CABOT RINGS (test code = CAB) MORPHOLOGY COMMENT (test code = MOC) PLATELET ESTIMATE (test code = PLTEST) PLATELET MORPHOLOGY (test code = PLTMORPH) RENAL FUNCTION [id number] 10:08:00* Test Item Value Reference Range Interpretation [...] = PHOS) 4.0 mg/dL 2.5-4.9 N URIC [id number] 10:08:00* Test Item Value Reference Range Interpretation Comments URIC ACID (test code = URIC) 4.8 mg/dL 2.6-7.2 N FE W/TOTAL IRON BINDING CAP.2018-08-28 10:08:00* Test Item Value Reference Range Interpretation Comments SERUM IRON (test code = IRON) 67 ug/dL 50-175 N TOTAL IRON BINDING CAPACITY (test code = TIBC) 428 mcg/dL 250-450 N IRON SATURATION (test code = FESAT) 15.65 % 13-45 N [id number] 10:08:00* Test Item Value Reference Range Interpretation Comments FERRITIN (test code = BARRERA) 19 ng/mL 8-388 N RENAL FUNCTION [id number] 09:57:00* Test Item Value Reference Range Interpretation [...] (test code = PHOS) mg/dL 2.5-4.9 URIC [id number] 09:57:00* Test Item Value Reference Range Interpretation Comments URIC ACID (test code = URIC) mg/dL 2.6-7.2 FE W/TOTAL IRON BINDING CAP.2018-08-28 09:57:00* Test Item Value Reference Range Interpretation Comments SERUM IRON (test code = IRON) ug/dL 50-175 TOTAL IRON BINDING CAPACITY (test code = TIBC) mcg/dL 250-450 IRON SATURATION (test code = FESAT) % 13-45 [id number] 09:57:00* Test Item Value Reference Range Interpretation Comments FERRITIN (test code = BARRERA) ng/mL 8-388 CBC W/AUTO [id number] 09:50:00* Test Item Value Reference Range Interpretation [...] REQUIRED (test code = MDIFF) NO Bedside [id number] 05:32:00* Test Item Value Reference Range Interpretation Comments Bedside Glucose (test code = 67295-3) 135 70-120 H Meter ID: [id number] [facility] 2018-02-26 16:25:00 [facility] [address] [address] Patient Name: ROLANDO SINHA MR #: [id number] : 1950 Age/Sex: 67/F Req #: [id number] Adm Physician: DAVIN ARMENDARIZ MD Ordered by: SKINNY MONTESINOS MD Report #: [id number] Location: [facility] Room/Bed: [address] [address] Procedure: MRI/MRI BRAIN WO Exam Date: Exam [...] Comments Creatine Kinase MB (test code = 08810-0) 0.80 0-5.0 [facility]landsTroponin [id number] 13:10:00* Test Item Value Reference Range Interpretation Comments Troponin I (test code = OWK9403) 0.008 0-0.300 [facility]landsCreatine [id number] 13:06:00* Test Item Value Reference Range Interpretation Comments Creatine Kinase (test code = 2157-6) 65 29-168 [facility] [id number] 06:19:00* Test Item Value Reference Range Interpretation Comments Sodium Level (test code = 2951-2) 139 136-145 [facility]landsPotassium [id number] 06:19:00* Test Item Value Reference Range Interpretation Comments Potassium Level (test code = 2823-3) 3.7 3.5-5.1 [facility]landsChloride [id number] 06:19:00* Test Item Value Reference Range Interpretation Comments Chloride Level (test code = 2075-0) 107 98-107 [facility]landsCarbon Dioxide [id number] 06:19:00* Test Item Value Reference Range Interpretation Comments Carbon Dioxide Level (test code = 2028-9) 18 22-29 L [facility]landsAnion [id number] 06:19:00* Test Item Value Reference Range Interpretation Comments Anion Gap (test code = 72988-2) 17.7 8-16 H [facility]landsBlood Urea [id number] 06:19:00* Test Item Value Reference Range Interpretation Comments Blood Urea Nitrogen (test code = 3094-0) 24 7-26 [facility]landsCreatinine2018-09-02 06:19:00* Test Item Value Reference Range Interpretation Comments Creatinine (test code = 2160-0) 2.12 0.57-1.11 H [facility]landsBUN/Creatinine [id number] 06:19:00* Test Item Value Reference Range Interpretation Comments BUN/Creatinine Ratio (test code = 3097-3) 11 6-25 [facility]landsEstimat Glomerular Filtration Rate 2018-02-26 06:19:00* Test Item Value Reference Range Interpretation Comments Estimat Glomerular Filtration Rate (test code = 48404-8) 23 >60 L Ranges were taken from the National Kidney Disease Education Program and the [facility] Kid[facility] Foundation literature.Reference ranges:60 or greater: Heeuxk37-12 ( for 3 consecutive months): Chronic kidney disease 15 or less: Kidney failureCH[facility] Bay AreaGlucose Mubcp6531-72-21 06:19:00* Test Item Value Reference Range Interpretation Comments Glucose Level (test code = HRV8736) 90 74-118 [facility]landsCalcium Tjint9883-36-13 06:19:00* Test Item Value Reference Range Interpretation Comments Calcium Level (test code = 41817-6) 8.4 8.4-10.2 [facility]landsTotal Khymatdbp2494-22-93 06:19:00* Test Item Value Reference Range Interpretation Comments Total Bilirubin (test code = 1975-2) 0.3 0.2-1.2 [facility]landsAspartate Amino Transf (AST/SGOT) 2018-02-26 06:19:00* Test Item Value Reference Range Interpretation Comments Aspartate Amino Transf (AST/SGOT) (test code = Aspartate Amino Transf (AST/SGOT)) 12 5-34 [facility]landsAlanine Aminotransferase (ALT/SGPT) 2018-02-26 06:19:00* Test Item Value Reference Range Interpretation Comments Alanine Aminotransferase (ALT/SGPT) (test code = 1742-6) 9 0-55 [facility]landsTotal Hgvlkck5199-72-20 06:19:00* Test Item Value Reference Range Interpretation Comments Total Protein (test code = 2885-2) 7.0 6.5-8.1 [facility]landsAlbumin2018-09-02 06:19:00* Test Item Value Reference Range Interpretation Comments Albumin (test code = 1751-7) 3.3 3.5-5.0 L [facility]landsGlobulin2018-09-02 06:19:00* Test Item Value Reference Range Interpretation Comments Globulin (test code = 31390-4) 3.7 2.3-3.5 H [facility]landsAlbumin/Globulin Tskcx8317-37-38 06:19:00 * Test Item Value Reference Range Interpretation Comments Albumin/Globulin Ratio (test code = 1759-0) 0.9 0.8-2.0 [facility]landsAlkaline Yazjlpaoarn3005-48-87 06:19:00* Test Item Value Reference Range Interpretation Comments Alkaline Phosphatase (test code = 6768-6) 64 40-150 [facility]landsWhite Blood Giszo9877-69-87 04:54:00* Test Item Value Reference Range Interpretation Comments White Blood Count (test code = 6690-2) 8.40 4.8-10.8 [facility]landsRed Blood Cdzwh9121-08-24 04:54:00* Test Item Value Reference Range Interpretation Comments Red Blood Count (test code = 789-8) 2.94 3.6-5.1 L [facility]landsHemoglobin2018-09-02 04:54:00* Test Item Value Reference Range Interpretation Comments Hemoglobin (test code = 46631-7) 9.3 12.0-16.0 L [facility]landsHematocrit2018-09-02 04:54:00* Test Item Value Reference Range Interpretation Comments Hematocrit (test code = 4544-3) 28.9 34.2-44.1 L [facility]landsMean Corpuscular Pdjdwo4376-34-29 04:54:00* Test Item Value Reference Range Interpretation Comments Mean Corpuscular Volume (test code = 787-2) 98.3 81-99 [facility]landsMean Corpuscular Asqbgxvgsl2758-93-04 04:54:00* Test Item Value Reference Range Interpretation Comments Mean Corpuscular Hemoglobin (test code = 785-6) 31.6 28-32 [facility]landsMean Corpuscular Hemoglobin Concent 2018-02-26 04:54:00* Test Item Value Reference Range Interpretation Comments Mean Corpuscular Hemoglobin Concent (test code = 786-4) 32.2 31-35 [facility]landsRed Cell Distribution Jtbmv5674-17-20 04:54:00* Test Item Value Reference Range Interpretation Comments Red Cell Distribution Width (test code = 92293-8) 14.2 11.7 -14.4 [facility]landsPlatelet Rqwhh7036-58-05 04:54:00* Test Item Value Reference Range Interpretation Comments Platelet Count (test code = 777-3) 215 140-360 [facility]landsNeutrophils (%) (Auto)2018-02-26 04:54:00 * Test Item Value Reference Range Interpretation Comments Neutrophils (%) (Auto) (test code = 24028-6) 46.4 38.7-80.0 [facility]landsLymphocytes (%) (Auto)2018-02-26 04:54:00 * Test Item Value Reference Range Interpretation Comments Lymphocytes (%) (Auto) (test code = 736-9) 35.1 18.0-39.1 [facility]landsMonocytes (%) (Auto)2018-02-26 04:54:00* Test Item Value Reference Range Interpretation Comments Monocytes (%) (Auto) (test code = 5905-5) 6.4 4.4-11.3 [facility]landsEosinophils (%) (Auto)2018-02-26 04:54:00 * Test Item Value Reference Range Interpretation Comments Eosinophils (%) (Auto) (test code = 713-8) 11.0 0.0-6.0 H [facility]landsBasophils (%) (Auto)2018-02-26 04:54:00* Test Item Value Reference Range Interpretation Comments Basophils (%) (Auto) (test code = 706-2) 0.7 0.0-1.0 [facility]landsIM GRANULOCYTES %2018-02-26 04:54:00* Test Item Value Reference Range Interpretation Comments IM GRANULOCYTES % (test code = IM GRANULOCYTES %) 0.4 0.0- 1.0 [facility]landsNeutrophils # (Auto)2018-02-26 04:54:00* Test Item Value Reference Range Interpretation Comments Neutrophils # (Auto) (test code = 751-8) 3.9 2.1-6.9 [facility]landsLymphocytes # (Auto)2018-02-26 04:54:00* Test Item Value Reference Range Interpretation Comments Lymphocytes # (Auto) (test code = 09099-4) 3.0 1.0-3.2 [facility]landsMonocytes # (Auto)2018-02-26 04:54:00* Test Item Value Reference Range Interpretation Comments Monocytes # (Auto) (test code = 742-7) 0.5 0.2-0.8 [facility]landsEosinophils # (Auto)2018-02-26 04:54:00* Test Item Value Reference Range Interpretation Comments Eosinophils # (Auto) (test code = 711-2) 0.9 0.0-0.4 H [facility]landsBasophils # (Auto)2018-02-26 04:54:00* Test Item Value Reference Range Interpretation Comments Basophils # (Auto) (test code = 704-7) 0.1 0.0-0.1 [facility] WoodlandsAbsolute Immature Granulocyte (auto 2018-02-26 04:54:00* Test Item Value Reference Range Interpretation Comments Absolute Immature Granulocyte (auto (beckie t code = Absolute Immature Granulocyte (auto) 0.03 0-0.1 [facility]landsUrine Dsvdk2549-26-01 20:43:00* Test Item Value Reference Range Interpretation Comments Urine Color (test code = 5778-6) YELLOW YELLOW [facility]landsUrine Mbfiqkd8395-01-11 20:43:00* Test Item Value Reference Range Interpretation Comments Urine Clarity (test code = 55292-8) HAZY CLEAR [facility] Specific Tqluurm5749-46-08 20:43:00 * Test Item Value Reference Range Interpretation Comments Urine Specific [place] (test code = 5811-5) 1.030 1.010-1.02 5 H [facility]landsUrine [id number] 20:43:00* Test Item Value Reference Range Interpretation Comments Urine pH (test code = 30209-6) 6 5-7 [facility]landsUrine Leukocyte Kkimgtbh6111-46-60 20:43:00* Test Item Value Reference Range Interpretation Comments Urine Leukocyte Esterase (test code = 5799-2) NEGATIVE NEGATIVE [facility] Bdbvpxq9272-32-95 20:43:00* Test Item Value Reference Range Interpretation Comments Urine Nitrite (test code = 45458-6) NEGATIVE NEGATIVE [facility] Uuapliu3865-56-02 20:43:00* Test Item Value Reference Range Interpretation Comments Urine Protein (test code = 5804-0) 2+ NEGATIVE H [facility] Glucose (UA)2018-02-25 20:43:00* Test Item Value Reference Range Interpretation Comments Urine Glucose (UA) (test code = 2349-9) NEGATIVE NEGATIVE [facility]landsUrine Xxdyatz9474-67-83 20:43:00* Test Item Value Reference Range Interpretation Comments Urine Ketones (test code = 24342-2) NEGATIVE NEGATIVE [facility] Xeurwtfdwutp8610-78-71 20:43:00* Test Item Value Reference Range Interpretation Comments Urine Urobilinogen (test code = 95418-2) 0.2 0.2-1 [facility]landsUrine Cnjhwjofm5700-46-68 20:43:00* Test Item Value Reference Range Interpretation Comments Urine Bilirubin (test code = 1978-6) NEGATIVE NEGATIVE [facility] Hgkuo6631-53-70 20:43:00* Test Item Value Reference Range Interpretation Comments Urine Blood (test code = 94543-8) TRACE NEGATIVE H [facility]landsUrine [id number] 20:43:00* Test Item Value Reference Range Interpretation Comments Urine WBC (test code = 5821-4) 0-5 0-5 [facility]landsUrine [id number] 20:43:00* Test Item Value Reference Range Interpretation Comments Urine RBC (test code = 84768-4) 6-10 0-5 H [facility]landsUrine Rzvxyxws0738-90-94 20:43:00* Test Item Value Reference Range Interpretation Comments Urine Bacteria (test code = 97001-3) FEW NONE [facility]landsUrine Epithelial Vdpxh5552-56-12 20:43:00 * Test Item Value Reference Range Interpretation Comments Urine Epithelial Cells (test code = 71344-3) MODERATE NONE [facility] WoodlandsCT BRAIN [id number] 20:03:00 [facility] [address] [place] [address] Patient Name: ROLANDO SINHA MR #: [id number] : Age/Sex: 67/F Req #: [id number] Adm Physician: Ordered by: SKINNY MONTESINOS MD Report #: [id number] Location: ER Room /Bed: Procedure: [id number] CT/CT BRAIN WO Exam Date: 02/25/18 Exam [...] 02/25/182003 COPY TO: SKINNY MONTESINOS MD Prothrombin Oaul5138-92-30 20:01:00* Test Item Value Reference Range Interpretation Comments Prothrombin Time (test code = 5902-2) 16.1 11.9-14.5 H [facility]landsProthromb Time International Ratio 2018-02-25 20:01:00* Test Item Value Reference Range Interpretation Comments Prothromb Time International Ratio (test code = 6301-6) 1.40 Oral Anticoagulant Therapy INR Values:1. Low Intensity Therapy 1.5 - 2.02 . Moderate Intensity Therapy 2.0 - 3.03. High Intensity Therapy(1) 2.5 - 3. 54. High Intensity Therapy(2) 3.0 - 4.05. Panic Value INR > 5.0 [facility]landsActivated Partial Thromboplast Time 2018-02-25 20:01:00* Test Item Value Reference Range Interpretation Comments Activated Partial Thromboplast Time (test code = 06297-6) 34.3 23.8-35.5 [facility] AreaCHES SINGLE (PORTABLE)2018-02-25 19:44:00 [facility] [address] [address] Patient Name: ROLANDO SINHA MR #: [id number] : 1950 Age/Sex: 67/F Req #: [id number] Adm Physician: Ordered by: SKINNY MONTESINOS MD Report #: [id number] Location: ER Room/Bed: Procedure: [id number] DX/CHEST SINGLE (PORTABLE) Exam Date: 02/25/18 Exam Time: 1929 ST ATUS: Signed EXAM: CHEST SINGLE (PORTABLE), AP 1 view INDICATION: Hope like she was going to pass out [...]
--- NOTE | 2019-11-23 17:30 | NUR ---
covid test performed.
--- NOTE | 2019-11-23 18:25 | NUR ---
ARRIVED TO UNIT AT 1809 ON 11/23/19. AAOX3. ACYANOTIC. RESTING IN BED. NO DISTRESS NOTED. O2 AT 2L VIA NASAL CANNULA. PORT NOTED TO RIGHT CHEST WALL. SIDE RAILS UP X2. BED LOW. CALL LIGHT IN REACH. INSTRUCTED TO CALL FOR ASSISTANCE. VERBALIZED UNDERSTANDING.
--- NOTE | 2019-11-23 19:33 | NUR ---
Received change of shift report from AM nurse. Walking rounds completed
[2019-11-23 20:21] VITALS: BP 121/80
[2019-11-23 21:23] VITALS: BP 121/80
[2019-11-23 23:54] VITALS: BP 100/59
[2019-11-24] VITALS (7 sets, daily range): BP systolic 100–122; BP diastolic 58–83
--- NOTE | 2019-11-24 02:52 | NUR ---
Blood drawn for cardiac enz. from PAC. Flushed PAC with 10cc ns. Dressing applied to PAC. Continue monitor.
[2019-11-24 03:41] LABS: CREATINE KINASE 49 IU/L (29-168)
[2019-11-24] MEDS: FAMOTIDINE 20 MG/2 ML VIAL IV SCH ×2 (04:45→17:45)
[2019-11-24 05:08] LABS: BASOPHILS % 0.5 % (0.0-1.0); EOSINOPHILS # (AUTO) 0.5 (0.0-0.4); EOSINOPHILS % 6.7 % (0.0-6.0); HEMOGLOBIN 9.2 g/dL (12.0-16.0); LYMPHOCYTES # (AUTO) 1.9 (1.0-3.2); LYMPHOCYTES % 25.5 % (18.0-39.1); MEAN CORPUSCULAR HEMOGLOBIN 30.4 pg (28-32); MEAN CORPUSCULAR HGB CONC 30.7 g/dL (31-35); MONOCYTES # (AUTO) 0.5 (0.2-0.8); MONOCYTES % 6.7 % (4.4-11.3); NEUTROPHILS # (AUTO) 4.4 (2.1-6.9); NEUTROPHILS % 60.3 % (38.7-80.0); PLATELET COUNT 235 x10e3/uL (140-360); RED BLOOD COUNT 3.03 x10e6/uL (3.6-5.1); RED CELL DISTRIBUTION WIDTH 13.7 % (11.7-14.4)
[2019-11-24 05:12] LABS: ALBUMIN 3.3 g/dL (3.5-5.0); ALBUMIN/GLOBULIN RATIO 0.9 (0.8-2.0); ANION GAP 17.7 mmol/L (8-16); CALCIUM 8.9 mg/dL (8.4-10.2); CREATININE, SERUM 2.28 mg/dL (0.57-1.11); POTASSIUM 4.7 mmol/L (3.5-5.1)
--- NOTE | 2019-11-24 07:54 | NUR ---
ASSUMED CARE AT APPROXIMATELY 0715. AAOX3. ACYANOTIC. RESTING IN BED. NO DISTRESS NOTED. CALL LIGHT IN REACH. SIDE RAILS UP X2. BED LOW.
[2019-11-24] MEDS ORDERED: FUROSEMIDE INJ 10 MG/ML 4 ML VIAL IV NR (09:30)
[2019-11-24] MEDS ORDERED: AMIODARONE HCL 200 MG TAB PO SCH (09:30)
[2019-11-24] MEDS ORDERED: METOPROLOL SUCCINATE 50 MG TAB XL PO SCH (09:30)
--- NOTE | 2019-11-24 10:14 | Progress Note ---
DATE: 11/24/2019 CHIEF COMPLAINT/HISTORY OF PRESENT ILLNESS: This is a 69-year-old white woman, who has history of nonobstructive coronary artery disease, hypertension, and stage 4 chronic kidney disease. Moreover, she has history of chronic atrial fibrillation. The patient was admitted with a diagnosis of atrial fibrillation with rapid ventricular rate. The patient states she is still short of breath and she feels as though her heart races at times. The patient denies any chest pain or tightness. Blood work today revealed a BUN and creatinine of 24 and 2.28 respectively, potassium is 4.7. The patient's magnesium yesterday was 1.6. The patient's cardiac enzymes, namely, troponin I were unremarkable. REVIEW OF SYSTEMS: As per HPI. PHYSICAL EXAMINATION: GENERAL: She is awake, alert and fully oriented. She is very pleasant on cooperative exam. Does not appear to be in obvious distress. VITAL SIGNS: Blood pressure is 122/82, pulse 76 and regular, respiratory rate, and oxygen saturation 98% on 2 L oxygen, and temperature 96.8. BMI is 22. She is 5 feet 6 inches, weight 260 pounds. INTEGUMENT: Skin is warm dry. No pallor, jaundice, or diaphoresis. HEENT: Anterior sclerae. Moist mucous membranes. NECK: Supple. No evidence of jugular venous distention. CARDIOVASCULAR: Distant heart sounds. Regular rate with irregular rhythm with S3 gallop. LUNGS: No rales. No rhonchi or wheezes. ABDOMEN: Obese yet benign. EXTREMITIES: No edema or deformity. NEUROLOGIC: Intact. DIAGNOSES: 1. Atrial fibrillation. 2. Ytfuf-ip-bfumynn diastolic congestive heart failure, likely. 3. Nonobstructive coronary artery disease. 4. Hypertensive heart disease. 5. Stage 4 chronic kidney disease. 6. Obesity with BMI of 42. PLAN: 1. Restart apixaban/Eliquis for anticoagulation. 2. Restart oral amiodarone. 3. Restart oral metoprolol succinate. 4. We will hold hydrochlorothiazide and lisinopril since the patient is experiencing worsening renal function. 5. Consult Cardiology. 6. Order 2D echocardiogram. 7. We will administer furosemide 80 mg intravenous now. 8. We will follow electrolytes and renal function. 9. We will check a TSH level. I spent 30 minutes in the care of your patient. Robbie MD LEONARD Chavira/RITA /[id number] MTDHussain
[2019-11-24] MEDS: APIXAB 2.5 MG TABLET PO SCH ×2 (10:21→17:45)
[2019-11-24] MEDS: ASPIRIN 81 MG ENTERIC COATED PO SCH (10:21)
[2019-11-24] MEDS: LEVOTHYROXINE SODIUM 50 MCG TAB PO SCH (10:21)
[2019-11-24 11:19] LABS: CREATINE KINASE MB 0.9 ng/mL (0-5.0)
--- NOTE | 2019-11-24 14:05 | Consultation ---
DATE OF CONSULTATION: Cardiology Consultation HISTORY OF PRESENT ILLNESS: This is a 69-year-old woman with a history of paroxysmal atrial fibrillation status post direct current cardioversion, mild nonobstructive coronary artery disease, hypertension, chronic kidney disease, obesity, and diastolic heart failure, who presented to the emergency department with multiple nonspecific symptoms. States that she was very weak, lethargic, short of breath with some palpitations and lightheadedness. She states that she could not stand for long periods of times nor ambulate across her house. REVIEW OF SYSTEMS: A 12-point review of system was conducted, is negative as stated above in the HPI. PAST MEDICAL HISTORY: As stated above in the HPI. PAST SURGICAL HISTORY: Cardiac catheterization and cardioversion. PAST FAMILY HISTORY: Noncontributory to current illness. SOCIAL HISTORY: No illicit drug, alcohol, or tobacco use. ALLERGIES: MULTIPLE, SEE CHART. MEDICATIONS: See medication reconciliation form. PHYSICAL EXAMINATION: VITAL SIGNS: Temperature is 98.5, heart rate is 82, respirations are 18, blood pressure is 122/83, and oxygen saturation 98% on 2 L nasal cannula. GENERAL: Well-appearing, well built, no apparent distress. Alert and oriented x3. HEAD: Normocephalic and atraumatic. EYES: The extraocular muscles intact. Conjunctivae clear. NECK: No JVD. No bruits. CARDIOVASCULAR: Irregularly irregular. Normal rate. LUNGS: Clear to auscultation. ABDOMEN: Soft, nontender, and nondistended. EXTREMITIES: No clubbing, cyanosis, or edema. VASCULAR: 2+ pulses. SKIN: Warm, dry, and intact. NEUROLOGIC: No focal deficits noted. PSYCHIATRIC: The patient appears anxious. LABORATORY DATA: Reviewed. Hemoglobin is mildly low at 9.2. Creatinine is 2.28. Troponins are negative. TSH is mildly elevated at 6.3. IMPRESSION: 1. Paroxysmal atrial fibrillation with rapid ventricular response, currently now controlled. 2. Zjnfi-dl-ntuisso kidney disease. 3. Mild nonobstructive coronary artery disease. 4. Zcjft-dk-kbgwied diastolic heart failure. 5. Obesity. 6. Anxiety. RECOMMENDATIONS: I will increase her amiodarone to 200 p.o. b.i.d. Continue metoprolol for rate control. Can continue Eliquis for anticoagulation. The patient's anxiety likely playing a component of her presenting symptoms. The patient will ultimately need pulmonary vein isolation for her atrial fibrillation due to symptomatic episodes. DO ADRIENNE Barba/RITA /[id number]
--- NOTE | 2019-11-24 15:11 | NUR ---
Nutrition Screen Note RD Recommendation for Physician: -Recommend to continue cardiac diet Plan of Care: RD following, monitoring for tolerance and adequacy Nutrition reason for involvement: Nutrition Risk Trigger MST 2 Primary Diagnose(s): afib with RVR, chest pain PMH: Atrial fibrillation, Ievgp-ef-gfwmzwr diastolic congestive heart failure, nonobstructive coronary artery disease, Hypertensive heart disease, Stage 4 chronic kidney disease, Obesity Ht: 66 in Wt:260 lb BMI: 42.0 kg/m2 IBW:[address] Assessment: (11/24/19) Chart reviewed. Labs and meds reviewed. Pt is a 69 year old female admitted with afib wit RVR and chest pain. Pt reports a good appetite and is eating all of her meals. No weight loss reported, but pt mentioned she had gained weight. Pt reports some nausea. No chewing/swallowing issues. Will continue to monitor. Current Diet: cardiac diet Malnutrition Evaluation (11/24/19) The patient does not meet criteria for a specified degree of malnutrition at this time. Will re-evaluate at follow-up as appropriate. Diet Education Needs Assessment: Pt declined the need for diet education at time of visit Nutrition Care Level: low Signed: Farida Trammell, RD, LD
[2019-11-24] MEDS: METOPROLOL SUCCINATE 50 MG TAB XL PO SCH (17:00)
[2019-11-24] MEDS: AMIODARONE HCL 200 MG TAB PO SCH (17:00)
--- NOTE | 2019-11-24 19:10 | NUR ---
BEDSIDE SHIFT REPORT RECEIVED FROM DAY RN. PT IS ALERT AND ORIENTED X3. TELE ON . O2 2L PER N/C WORN BY PT WHEN SOB WITH EXERTION. RT CHEST WALL ELSI CATH SL INTACT- SITE HEALTHY. PT UP TO BATHROOM WITH ASSIST TO VOID. DENIES PAIN. PT VERBALIZED CONCERN ABOUT ABLATION PROCEDURE, LAB RESULTS AND MEDICATIONS- EFFECT ON HER B/P. ENCOURAGED HER TO ASK QUESTIONS.
[2019-11-25] VITALS (8 sets, daily range): BP systolic 106–120; BP diastolic 61–86
[2019-11-25] MEDS: FAMOTIDINE 20 MG/2 ML VIAL IV SCH ×2 (04:58→16:41)
[2019-11-25] MEDS: LEVOTHYROXINE SODIUM 50 MCG TAB PO SCH (05:20)
[2019-11-25] MEDS: ONDANSETRON HCL INJ 2MG/ML 2ML 2 MG/ML VIAL IV PRN (05:21)
[2019-11-25 05:52] LABS: BASOPHILS # (AUTO) 0.1 (0.0-0.1); EOSINOPHILS # (AUTO) 0.6 (0.0-0.4); EOSINOPHILS % 8.6 % (0.0-6.0); HEMOGLOBIN 9.5 g/dL (12.0-16.0); LYMPHOCYTES # (AUTO) 1.8 (1.0-3.2); LYMPHOCYTES % 25.6 % (18.0-39.1); MEAN CORPUSCULAR HEMOGLOBIN 30.7 pg (28-32); MEAN CORPUSCULAR HGB CONC 30.6 g/dL (31-35); MEAN CORPUSCULAR VOLUME 100.3 fL (81-99); MONOCYTES # (AUTO) 0.4 (0.2-0.8); MONOCYTES % 5.9 % (4.4-11.3); NEUTROPHILS # (AUTO) 4.2 (2.1-6.9); NEUTROPHILS % 58.8 % (38.7-80.0); PLATELET COUNT 245 x10e3/uL (140-360); RED BLOOD COUNT 3.09 x10e6/uL (3.6-5.1); RED CELL DISTRIBUTION WIDTH 13.8 % (11.7-14.4)
[2019-11-25 06:28] LABS: ALBUMIN 3.5 g/dL (3.5-5.0); ANION GAP 17.3 mmol/L (8-16); CALCIUM 9.1 mg/dL (8.4-10.2); CREATININE, SERUM 2.88 mg/dL (0.57-1.11); POTASSIUM 4.3 mmol/L (3.5-5.1)
--- NOTE | 2019-11-25 07:23 | NUR ---
ASSUMED CARE. AWAKE AND ALERT. ACYANOTIC. NO DISTRESS NOTED. CALL LIGHT IN REACH. SIDE RAILS UP X2. BED LOW.
[2019-11-25] MEDS: ASPIRIN 81 MG ENTERIC COATED PO SCH (08:18)
[2019-11-25] MEDS: AMIODARONE HCL 200 MG TAB PO SCH ×2 (08:18→16:41)
[2019-11-25] MEDS: APIXAB 2.5 MG TABLET PO SCH ×2 (08:20→16:41)
[2019-11-25] MEDS: METOPROLOL SUCCINATE 50 MG TAB XL PO SCH ×2 (08:20→16:41)
--- NOTE | 2019-11-25 09:12 | NUR ---
SPOKE WITH DR. MUHAMMAD. HE IS HAVING NURSES EVAL PT FOR HOME OXYGEN. HE ANTICIPATES DC POSS TOMORROW. CM WILL FOLLOW UP WITH NURSES.
--- NOTE | 2019-11-25 09:51 | NUR ---
Spoke with Dr. Fan. Pt does not qualify for home oxygen. He has ordered for her to go to [facility], and transfer when accepted. He states he spoke with [employer] machine operator who agrees with plan. CM met with pt and she agrees and signed choice letter. Clinicals faxed to [facility] rehab [phone] [place] [address] FAX [phone]
--- NOTE | 2019-11-25 10:43 | Progress Note ---
DATE: 11/25/2019 CHIEF COMPLAINT/HISTORY OF PRESENT ILLNESS: This is a 69-year-old white woman, whose primary diagnosis is paroxysmal atrial fibrillation with rapid ventricular rate. She was also diagnosed with acute on chronic diastolic heart failure. The patient underwent echocardiogram yesterday, which revealed a preserved left ventricular ejection fraction of 50 to 55% with an enlarged left atrium. The patient states she still becomes very short of breath with minimal ambulation. She denies any chest pain or tightness. Today's blood work revealed hemoglobin of 9.5 g/dL. The patient's white blood cell count is 7100 with 58% segmented neutrophils. The patient's BUN and creatinine 32 and 2.88 respectively. Potassium 4.3. The patient's B-type natriuretic peptide level today is 133. The patient's TSH level is 6.37. REVIEW OF SYSTEMS: As per HPI. PHYSICAL EXAMINATION: GENERAL: She is awake. She is alert. She is fully oriented. She is slightly anxious, but does not appear to be dyspneic. She is very pleasant and cooperative. VITAL SIGNS: Height 5 feet 6 inches, weight is 260 pounds. BMI is 42. Blood pressure is 110/78, pulse 72, respiratory rate is 18, oxygen saturation 97% on 2 L oxygen, temperature 97.7. INTEGUMENT: Skin is warm and dry. No pallor, jaundice or diaphoresis. HEENT: Anterior sclerae with moist mucous membranes. NECK: Supple. No evidence of jugular venous distention, but difficult to assess because of the patient's body habitus. CARDIOVASCULAR: Distal heart sounds. Regular rate with irregular rhythm. The patient has S3 gallop. LUNGS: No rales. No rhonchi or wheezes. ABDOMEN: Obese yet benign. EXTREMITIES: No edema or deformity. NEUROLOGIC: Intact. DIAGNOSES: 1. Paroxysmal atrial fibrillation. 2. Acute on chronic diastolic congestive heart failure. 3. Nonobstructive coronary artery disease. 4. Hypertensive heart disease. 5. Stage 4 chronic kidney disease. 6. Hhimc-iy-wdiwefs renal insufficiency. 7. Extreme obesity, BMI of 42. PLAN: 1. Continue apixaban for anticoagulation. 2. Agree with amiodarone twice a day as ordered by Cardiology. 3. Continue oral metoprolol succinate. 4. We will continue to hold hydrochlorothiazide and lisinopril since the patient is experiencing acute on chronic renal insufficiency. 5. Appreciate Cardiology's input. 6. We will follow renal function and electrolytes. 7. We will continue levothyroxine for patient's hypothyroidism. 8. We will ask physical therapy to mobilize patient. 9. We will order home oxygen evaluation. 10. May consider transfer patient to an inpatient rehabilitation unit namely [facility], which is located in [place], [place]. I spent 35 minutes in care of the patient. MD LEONARD Schmid/RITA /[id number] MTDD
--- NOTE | 2019-11-25 10:48 | NUR ---
DELFIN RIOS, LIAISON WITH [facility] ([phone]) NOTIFIED THAT SHE RECEIVED CLINICAL.
--- NOTE | 2019-11-25 12:00 | Diagnostic Imaging Report ---
EXAMINATION: CHEST SINGLE (PORTABLE) INDICATION: CHF. COMPARISON: Chest radiograph 11-23-2019. FINDINGS: LINES/TUBES:Right subclavian chest port with catheter tip in the lower SVC. LUNGS:The lungs are well-inflated. No focal consolidation or pulmonary edema. Minimal patchy bibasilar opacities, likely atelectasis. PLEURA:No pleural effusion or pneumothorax. MEDIASTINUM:The cardiomediastinal silhouette appears unremarkable. Atherosclerotic calcifications of the aortic arch. BONES/SOFT TISSUES:No acute osseous abnormality. ABDOMEN:No free air under the diaphragm. IMPRESSION: No acute radiographic abnormality. Signed by: Dr. Carlota Beyer MD on 11/25/2019 11:56 AM
--- NOTE | 2019-11-25 13:18 | Progress Note ---
DATE: Cardiology Progress Note SUBJECTIVE: The patient is feeling better. She states this is the best she has felt in three months. No palpitations today. OBJECTIVE: VITAL SIGNS: Temperature is 98.2, heart rate 63, respirations are 18, blood pressure is 114/78, oxygen saturation 97% on 2 L nasal cannula. GENERAL: Well-appearing elderly woman, in no apparent distress. CARDIOVASCULAR: She is irregularly irregular. Normal rate. LUNGS: Clear to auscultation. ABDOMEN: Obese, soft, nontender. EXTREMITIES: Trace edema. TELEMETRY: Monitoring was personally reviewed by myself and shows atrial fibrillation with controlled ventricular response. LABORATORY DATA: Reviewed. CARDIOVASCULAR MEDICATIONS: Reviewed. ASSESSMENT: 1. Atrial fibrillation. 2. Acute on chronic kidney disease. 3. Mild nonobstructive coronary disease. 4. Acute on chronic diastolic heart failure. 5. Obesity. 6. Anxiety. PLAN: 1. Amiodarone and Toprol-XL were increased to b.i.d. dosing yesterday with improvement of her heart rate control. The patient feels substantially better. Continue oral anticoagulation. The patient is going to be transferred to rehabilitation facility for physical therapy. Once this has been completed, she will need to be followed up and be referred for atrial fibrillation, pulmonary vein isolation. DO ADRIENNE Barba/YOLYL /[id number]
--- NOTE | 2019-11-25 13:41 | NUR ---
Initiated MOT for [facility], and placed at [facility] nurses station.
--- NOTE | 2019-11-25 13:42 | NUR ---
[address] [place] [address] FAX [phone] Awaiting acceptance for Tuesday, November 26, 2019
--- NOTE | 2019-11-25 19:15 | NUR ---
BEDSIDE SHIFT REPORT RECEIVED FROM DAY RN. RESPIRATIONS ARE EVEN AND UNLABORED. TELE ON. RT MEDIPORT SL INTACT. SITE HEALTHY. BOWEL SOUNDS PRESENT. PT C/O OF CONSTIPATION. WILL GIVE DULCOLAX TABLETS S ORDERED. NO EDEMA NOTED. CALL LIGHT WITHIN REACH. BED IN LOW POSITION. PT HAD B/P MEDS ON DAY SHIFT- WILL MONITOR B/P FOR LOW BLOOD PRESSURE.PT DENIES PAIN. PT RESTING IN BED WATCHING TV.
[2019-11-25] MEDS ORDERED: BISACODYL 5 MG TAB EC PO NR (19:30)
[2019-11-25] MEDS ORDERED: MAGNESIUM HYDROXIDE 30 ML UDC PO ONE (19:30)
[2019-11-26 00:32] VITALS: BP 94/52
[2019-11-26 04:00] VITALS: BP 120/77
[2019-11-26 05:04] LABS: BASOPHILS # (AUTO) 0.1 (0.0-0.1); BASOPHILS % 0.7 % (0.0-1.0); EOSINOPHILS # (AUTO) 0.7 (0.0-0.4); EOSINOPHILS % 10.2 % (0.0-6.0); HEMATOCRIT 29.9 % (34.2-44.1); HEMOGLOBIN 9.1 g/dL (12.0-16.0); LYMPHOCYTES % 28.3 % (18.0-39.1); MEAN CORPUSCULAR HEMOGLOBIN 29.6 pg (28-32); MEAN CORPUSCULAR HGB CONC 30.4 g/dL (31-35); MEAN CORPUSCULAR VOLUME 97.4 fL (81-99); MONOCYTES # (AUTO) 0.5 (0.2-0.8); MONOCYTES % 7.1 % (4.4-11.3); NEUTROPHILS # (AUTO) 3.8 (2.1-6.9); NEUTROPHILS % 53.3 % (38.7-80.0); PLATELET COUNT 239 x10e3/uL (140-360); RED BLOOD COUNT 3.07 x10e6/uL (3.6-5.1); RED CELL DISTRIBUTION WIDTH 13.7 % (11.7-14.4)
[2019-11-26] MEDS: FAMOTIDINE 20 MG/2 ML VIAL IV SCH (05:19)
[2019-11-26 05:34] LABS: ALBUMIN 3.4 g/dL (3.5-5.0); ANION GAP 17.3 mmol/L (8-16); CREATININE, SERUM 3.12 mg/dL (0.57-1.11); POTASSIUM 4.3 mmol/L (3.5-5.1)
[2019-11-26] MEDS ORDERED: LEVOTHYROXINE SODIUM 50 MCG TAB PO SCH (06:00)
--- NOTE | 2019-11-26 07:00 | NUR ---
RECEIVED BEDSIDE REPORT. PT IS ALERT RESTING IN BED, NO S/S OF DISTRESS. PT C/O NAUSEA, WILL CHECK MAR. CALL LIGHT WITHIN REACH AND INSTRUCTED PT TO CALL RN FOR HELP
[2019-11-26] MEDS: ONDANSETRON HCL INJ 2MG/ML 2ML 2 MG/ML VIAL IV PRN (08:01)
[2019-11-26 08:03] VITALS: BP 126/66
[2019-11-26 08:29] VITALS: BP 126/66
[2019-11-26] MEDS ORDERED: MAGNESIUM HYDROXIDE 30 ML UDC PO PRN (09:00)
[2019-11-26] MEDS ORDERED: DOCUSATE SODIUM 100 MG CAP PO SCH (09:00)
[2019-11-26] MEDS ORDERED: BISACODYL 5 MG TAB EC PO PRN (09:00)
--- NOTE | 2019-11-26 09:13 | NUR ---
CLINICAL UPDATE EFAXED TO [facility] WILL FAX P.T. NOTES TO [facility] WHEN AVAILABLE
[2019-11-26] MEDS: ASPIRIN 81 MG ENTERIC COATED PO SCH (09:19)
[2019-11-26] MEDS: APIXAB 2.5 MG TABLET PO SCH (09:20)
[2019-11-26] MEDS: METOPROLOL SUCCINATE 50 MG TAB XL PO SCH (09:20)
[2019-11-26] MEDS: AMIODARONE HCL 200 MG TAB PO SCH (09:20)
--- NOTE | 2019-11-26 10:10 | NUR ---
ASSESSMENT: Spiritual concern Pt worried about those suffering from COVID-19 and civil unrest. Intervention: Provided empathic listening and prayer. Facilitated storytelling. Provided information on how to contact qa analyst, if needed. Outcome: Pt expressed appreciation for visit. No need to follow at this time. KAROL WLELS Shiftman Spiritual Care Department O: [phone]
--- NOTE | 2019-11-26 11:21 | Progress Note ---
DATE: 11/26/2019 Cardiology progress note SUBJECTIVE: The patient denies chest pain or shortness of breath. OBJECTIVE: VITAL SIGNS: Temperature 97.4 degrees, pulse 78, respiratory rate 18, blood pressure was 126/66, and oxygen saturation 97% on room air. GENERAL: Awake, alert, in no acute distress. LUNGS: Clear to auscultation bilaterally. No wheezes or crackles. CARDIOVASCULAR: Irregularly irregular. Normal rate. No murmur. Normal S1, S2. ABDOMEN: Soft, nontender, obese. EXTREMITIES: No edema. CARDIAC MEDICATIONS: Metoprolol succinate 50 mg p.o. b.i.d., amiodarone 200 mg p.o. b.i.d., apixaban 2.5 mg p.o. b.i.d., aspirin 81 mg p.o. daily, and levothyroxine 50 mcg p.o. daily. LABORATORY DATA: WBC 7.17, hemoglobin 9.1, hematocrit 29.9, and platelets 239. Sodium 141, potassium 4.3, chloride 104, CO2 of 24, BUN 38, and creatinine 3.12. TELEMETRY: Personally reviewed and interpreted revealing atrial fibrillation with controlled ventricular response. IMPRESSION: 1. Atrial fibrillation, rate controlled. 2. Acute on chronic kidney disease. 3. Mild nonobstructive coronary artery disease. 4. Acute on chronic diastolic heart failure. 5. Obesity. 6. Anxiety. RECOMMENDATIONS: Continue amiodarone and metoprolol at current doses. Heart rate is controlled on telemetry and the patient reports feeling better clinically. The patient is on Eliquis for CVA prophylaxis. Monitor creatinine closely. If her creatinine continues to rise, we may need to switch patient to alternate anticoagulation. The patient is currently planned for discharge to a rehabilitation facility for physical therapy. Once this is done, she was instructed to follow up with Dr. Nguyen in the office for referral for Electrophysiology for pulmonary vein isolation. Continue current cardiac medications. Thank you for this consult. We will continue to follow. Lisa Connolly MD ABS/MODL /[id number]
[2019-11-26 11:38] VITALS: BP 136/84
--- NOTE | 2019-11-26 12:57 | NUR ---
MOT REC'D FOR [facility] ACCEPTING PHYSICIAN DR KLAUS OCASIO ACCEPTING ADMIN: DR DAVID SILVA AQUATICS SPECIALIST NUMBER FOR REPORT: [phone] MOT AT DESK NURSE, XOCHITL NOTIFIED OF NUMBER TO CALL REPORT PT AWARE AND AGREEABLE WITH TRANSFER
== END 2019-11-26 15:43 | DRG 308 ==
LOC: ER 14:40 → ERHOLD 16:34 → MED/SURG 18:11 → OBSVTOIN 11-24 09:22
DX: I48.0 Paroxysmal atrial fibrillation (principal); I50.33 Acute on chronic diastolic (congestive) heart failure; N18.4 Chronic kidney disease, stage 4 (severe); N17.9 Acute kidney failure, unspecified; I13.0 Hypertensive heart and chronic kidney disease with heart failure and stage 1 through stage 4 chronic kidney disease, or unspecified chronic kidney disease; Z68.41 Body mass index [BMI] 40.0-44.9, adult; R07.9 Chest pain, unspecified; E78.5 Hyperlipidemia, unspecified; E11.22 Type 2 diabetes mellitus with diabetic chronic kidney disease; I25.10 Atherosclerotic heart disease of native coronary artery without angina pectoris; F41.9 Anxiety disorder, unspecified; E66.01 Morbid (severe) obesity due to excess calories
CPT/HCPCS: 36415; 71045; 80053; 82550; 82553; 83735; 83880; 84443; 84484; 85025; 85610; 85730; 87086; 87635; 93005; 93306; 97139; 99284; G0378; J1940; J2405

== ENCOUNTER 2020-08-21 06:54 | Observation (INO) | payer MEDICARE, BC ==
[2020-08-18 09:35] LABS: BASOPHILS # (AUTO) 0.1 (0.0-0.1); BASOPHILS % 0.9 % (0.0-1.0); EOSINOPHILS # (AUTO) 0.4 (0.0-0.4); HEMATOCRIT 33.7 % (34.2-44.1); HEMOGLOBIN 10.5 g/dL (12.0-16.0); LYMPHOCYTES # (AUTO) 1.5 (1.0-3.2); LYMPHOCYTES % 22.5 % (18.0-39.1); MEAN CORPUSCULAR HEMOGLOBIN 30.4 pg (28-32); MEAN CORPUSCULAR HGB CONC 31.2 g/dL (31-35); MEAN CORPUSCULAR VOLUME 97.7 fL (81-99); MONOCYTES # (AUTO) 0.6 (0.2-0.8); MONOCYTES % 9.2 % (4.4-11.3); NEUTROPHILS % 60.9 % (38.7-80.0); PLATELET COUNT 299 x10e3/uL (140-360); RED BLOOD COUNT 3.45 x10e6/uL (3.6-5.1); RED CELL DISTRIBUTION WIDTH 16.1 % (11.7-14.4)
[2020-08-18 09:54] LABS: ANION GAP 16.2 mmol/L (8-16); CALCIUM 9.3 mg/dL (8.4-10.2); CREATININE, SERUM 2.55 mg/dL (0.57-1.11); POTASSIUM 5.2 mmol/L (3.5-5.1)
[2020-08-18 09:55] LABS: INR 1.02
[~2020-08-21] VITALS: Ht 167.6 cm; Wt 117.5 kg
[~2020-08-21 06:54] MED LIST changes: +IRON IV; +MULTI-VITAMIN1 EACH PO; +VITAMIN B122500 MCG PO; +VITAMIN C500 MG PO; +VITAMIN D250 MCG PO
[2020-08-21 09:14] LABS: ANION GAP 16.4 mmol/L (8-16); CALCIUM 9.3 mg/dL (8.4-10.2); CREATININE, SERUM 2.29 mg/dL (0.57-1.11); POTASSIUM 4.4 mmol/L (3.5-5.1)
[2020-08-21] MEDS ORDERED: PHYTONADIONE 10MG/ML 20 MG in SODIUM CHLORIDE 0.9% 50ML 50 ML IV ONE ×2 (11:15→21:00)
[2020-08-21] MEDS ORDERED: HYOSCYAMINE SULFATE 0.5 MG/ML INJ ONE (11:33)
[2020-08-21] MEDS ORDERED: PANTOPRAZOLE 40 MG 10ML VIAL ONE (12:35)
[2020-08-21] MEDS ORDERED: SODIUM CHLORIDE 0.9% 250ML 250 ML IV ONE (13:30)
[2020-08-21] MEDS ORDERED: MIDAZOLAM HCL 2 MG/2 ML VIAL ONE (13:44)
[2020-08-21] MEDS ORDERED: FENTANYL CITRATE/PF 100MCG/2 ML INJ ONE (13:44)
[2020-08-21 16:19] VITALS: BP 142/61
[2020-08-21] MEDS: PANTOPRAZOLE 40 MG 10ML VIAL IV SCH (17:00)
[2020-08-21] MEDS: LACTATED RINGER'S 1,000 ML INJ SCH (17:00)
[2020-08-21] MEDS ORDERED: LIDOCAINE HCL 2% LOCAL INJ 5 ML SDV VIAL INJ ONE (17:04)
[2020-08-21] MEDS ORDERED: PROPOFOL IV EMULSION 10 MG/ML 20 ML VIAL ONE (17:04)
[2020-08-21 19:51] VITALS: BP 154/64
[2020-08-21 21:00] VITALS: BP 154/64
[2020-08-21 23:43] VITALS: BP 139/64
[2020-08-22 03:53] VITALS: BP 127/58
[2020-08-22] MEDS: METOCLOPRAMIDE HCL 10 MG/2ML VIAL IV SCH ×3 (03:56→17:45)
[2020-08-22] MEDS: LACTATED RINGER'S 1,000 ML INJ SCH (03:56)
[2020-08-22 05:14] LABS: INR 1.01; PROTHROMBIN TIME 13.9 seconds (11.9-14.5)
[2020-08-22 05:15] LABS: PARTIAL THROMBOPLASTIN TIME 32.5 seconds (23.8-35.5)
[2020-08-22 08:01] VITALS: BP 127/58
[2020-08-22 08:07] LABS: FERRITIN 67.96 ng/mL (4.63-204.00)
[2020-08-22 08:53] VITALS: BP 114/55
[2020-08-22] MEDS: PANTOPRAZOLE 40 MG 10ML VIAL IV SCH ×2 (09:14→17:45)
[2020-08-22 16:39] VITALS: BP 162/61
[2020-08-22 18:04] LABS: HEMATOCRIT 31.2 % (34.2-44.1); HEMOGLOBIN 9.5 g/dL (12.0-16.0)
== END 2020-08-22 19:00 | disposition home or self-care (01) ==
LOC: OR 06:54 → PACU V 13:39 → MED/SURG2 15:02
DX: K20.90 Esophagitis, unspecified without bleeding (principal); K29.70 Gastritis, unspecified, without bleeding; K31.7 Polyp of stomach and duodenum; Z20.822 Contact with and (suspected) exposure to COVID-19; K64.8 Other hemorrhoids; Z01.818 Encounter for other preprocedural examination; K57.10 Diverticulosis of small intestine without perforation or abscess without bleeding; K62.1 Rectal polyp
CPT/HCPCS: 36415 ×3; 43239; 43250; 43255; 45380; 80048 ×2; 82607; 82728; 82746; 83540; 84466; 85014 ×2; 85018 ×2; 85025; 85045; 85610 ×2; 85730 ×2; 86850; 86900; 86920; 88305; 88312; 93005; C9113 ×2; G0378 ×2; J1980; J2001; J2704; J2765; J3430; J7121 ×2; U0002; 43251; 45378; 45385; J7050

== ENCOUNTER 2020-11-04 15:31 | Inpatient (IN) | payer MEDICARE, BC ==
[~2020-11-04] VITALS: Ht 167.6 cm; Wt 117.9 kg
[2020-11-04] MEDS ORDERED: SODIUM CHLORIDE 0.9% 250ML 250 ML IV ONE (16:00)
[2020-11-04 16:28] VITALS: BP 144/59
[2020-11-04 16:31] VITALS: BP 144/59
[2020-11-04 16:38] VITALS: BP 144/59
[2020-11-04] MEDS: GEMFIBROZIL 600 MG TAB PO SCH (17:08)
[2020-11-04 17:38] LABS: BASOPHILS # (AUTO) 0.1 (0.0-0.1); BASOPHILS % 0.5 % (0.0-1.0); EOSINOPHILS # (AUTO) 0.3 (0.0-0.4); EOSINOPHILS % 2.7 % (0.0-6.0); LYMPHOCYTES # (AUTO) 1.5 (1.0-3.2); LYMPHOCYTES % 15.2 % (18.0-39.1); MEAN CORPUSCULAR HEMOGLOBIN 29.6 pg (28-32); MEAN CORPUSCULAR VOLUME 98.7 fL (81-99); MONOCYTES # (AUTO) 0.7 (0.2-0.8); MONOCYTES % 7.2 % (4.4-11.3); NEUTROPHILS % 72.7 % (38.7-80.0); PLATELET COUNT 626 x10e3/uL (140-360); RED BLOOD COUNT 2.33 x10e6/uL (3.6-5.1); RED CELL DISTRIBUTION WIDTH 14.6 % (11.7-14.4)
[2020-11-04 17:41] LABS: HEMOGLOBIN 6.9 g/dL (12.0-16.0)
[2020-11-04 17:57] LABS: INR 1.28; PROTHROMBIN TIME 16.7 seconds (11.9-14.5)
[2020-11-04 17:58] LABS: ALBUMIN 2.7 g/dL (3.5-5.0); ALBUMIN/GLOBULIN RATIO 0.6 (0.8-2.0); ANION GAP 20.7 mmol/L (8-16); CALCIUM 8.7 mg/dL (8.4-10.2); CREATININE, SERUM 2.78 mg/dL (0.57-1.11); POTASSIUM 4.7 mmol/L (3.5-5.1)
[2020-11-04 20:00] VITALS: BP 134/60
[2020-11-04 21:00] VITALS: BP 134/60
[2020-11-04] MEDS ORDERED: SODIUM CHLORIDE 0.9% 250ML 250 ML ONE (21:19)
[2020-11-04 23:00] VITALS: BP 131/56
[2020-11-05] VITALS (7 sets, daily range): BP systolic 108–152; BP diastolic 43–65
[2020-11-05] MEDS: LEVOTHYROXINE SODIUM 88 MCG TAB PO SCH (05:21)
[2020-11-05 05:50] LABS: BASOPHILS % 0.6 % (0.0-1.0); EOSINOPHILS # (AUTO) 0.2 (0.0-0.4); EOSINOPHILS % 3.1 % (0.0-6.0); LYMPHOCYTES # (AUTO) 1.3 (1.0-3.2); LYMPHOCYTES % 17.6 % (18.0-39.1); MEAN CORPUSCULAR HEMOGLOBIN 29.4 pg (28-32); MEAN CORPUSCULAR HGB CONC 30.5 g/dL (31-35); MEAN CORPUSCULAR VOLUME 96.5 fL (81-99); MONOCYTES # (AUTO) 0.7 (0.2-0.8); MONOCYTES % 10.3 % (4.4-11.3); NEUTROPHILS # (AUTO) 4.8 (2.1-6.9); NEUTROPHILS % 66.9 % (38.7-80.0); PLATELET COUNT 522 x10e3/uL (140-360); RED BLOOD COUNT 2.28 x10e6/uL (3.6-5.1); RED CELL DISTRIBUTION WIDTH 15.2 % (11.7-14.4)
[2020-11-05 06:16] LABS: HEMOGLOBIN 6.7 g/dL (12.0-16.0)
[2020-11-05] MEDS ORDERED: SODIUM CHLORIDE 0.9% 250ML 250 ML IV ONE (06:30)
[2020-11-05] MEDS: GEMFIBROZIL 600 MG TAB PO SCH ×2 (07:30→16:30)
[2020-11-05] MEDS: PANTOPRAZOLE SOD 40 MG TABEC PO SCH (07:30)
[2020-11-05] MEDS ORDERED: SODIUM CHLORIDE 0.9% 250ML 250 ML ONE ×2 (08:20→16:22)
[2020-11-05] MEDS: MULTIVITAMINS/MINERALS TAB PO SCH (09:00)
[2020-11-05] MEDS: ASCORBIC ACID 500 MG TAB PO SCH (09:00)
[2020-11-05] MEDS ORDERED: LEVOTHYROXINE SODIUM 50 MCG TAB PO SCH (09:00)
[2020-11-05] MEDS: CYANOCOBALAMIN 1,000 MCG TAB PO SCH (09:00)
[2020-11-05] MEDS: METOPROLOL TARTRATE 50 MG TAB PO SCH (09:00)
[2020-11-05] MEDS: POTASSIUM CHLORIDE 10MEQ EA PO SCH (09:00)
[2020-11-05] MEDS: ESTRADIOL 1 MG TAB PO SCH (09:00)
[2020-11-05] MEDS: FUROSEMIDE 20 MG TAB PO SCH (09:00)
[2020-11-05] MEDS ORDERED: CYANOCOBALAMIN 1000 MG PO SCH (09:00)
[2020-11-05] MEDS: AMIODARONE HCL 200 MG TAB PO SCH (09:00)
[2020-11-05] MEDS ORDERED: EPOETIN ALFA-EPBX 10,000 UNIT/ML VIAL SC SCH ×2 (13:00→20:00)
[2020-11-05] MEDS: HYDROCODONE/APAP 5MG-325MG TAB PO PRN (13:49)
[2020-11-05] MEDS: FUROSEMIDE INJ 10 MG/ML 2 ML VIAL IV PRN ×2 (16:15→22:48)
[2020-11-06] VITALS: BP 133/58
[2020-11-06 00:29] VITALS: BP 134/57
[2020-11-06 04:00] VITALS: BP 143/65
[2020-11-06] MEDS: LEVOTHYROXINE SODIUM 88 MCG TAB PO SCH (06:02)
[2020-11-06 06:22] LABS: BASOPHILS # (AUTO) 0.1 (0.0-0.1); BASOPHILS % 0.7 % (0.0-1.0); EOSINOPHILS # (AUTO) 0.3 (0.0-0.4); EOSINOPHILS % 3.3 % (0.0-6.0); HEMATOCRIT 27.3 % (34.2-44.1); HEMOGLOBIN 8.4 g/dL (12.0-16.0); LYMPHOCYTES # (AUTO) 1.1 (1.0-3.2); LYMPHOCYTES % 14.4 % (18.0-39.1); MEAN CORPUSCULAR HEMOGLOBIN 29.2 pg (28-32); MEAN CORPUSCULAR HGB CONC 30.8 g/dL (31-35); MEAN CORPUSCULAR VOLUME 94.8 fL (81-99); MONOCYTES # (AUTO) 0.6 (0.2-0.8); MONOCYTES % 7.3 % (4.4-11.3); NEUTROPHILS # (AUTO) 5.6 (2.1-6.9); NEUTROPHILS % 73.2 % (38.7-80.0); PLATELET COUNT 483 x10e3/uL (140-360); RED BLOOD COUNT 2.88 x10e6/uL (3.6-5.1); RED CELL DISTRIBUTION WIDTH 16.6 % (11.7-14.4)
[2020-11-06] MEDS: PANTOPRAZOLE SOD 40 MG TABEC PO SCH (07:30)
[2020-11-06] MEDS: GEMFIBROZIL 600 MG TAB PO SCH (07:30)
[2020-11-06 08:53] VITALS: BP 135/71
[2020-11-06] MEDS: AMIODARONE HCL 200 MG TAB PO SCH (09:00)
[2020-11-06] MEDS: ESTRADIOL 1 MG TAB PO SCH (09:00)
[2020-11-06] MEDS: FUROSEMIDE 20 MG TAB PO SCH (09:00)
[2020-11-06] MEDS: METOPROLOL TARTRATE 50 MG TAB PO SCH (09:00)
[2020-11-06] MEDS: CYANOCOBALAMIN 1,000 MCG TAB PO SCH (09:00)
[2020-11-06] MEDS: POTASSIUM CHLORIDE 10MEQ EA PO SCH (09:00)
[2020-11-06] MEDS: ASCORBIC ACID 500 MG TAB PO SCH (09:00)
[2020-11-06] MEDS: MULTIVITAMINS/MINERALS TAB PO SCH (09:00)
[2020-11-06] MEDS: HYDROCODONE/APAP 5MG-325MG TAB PO PRN (10:30)
[2020-11-06 10:45] VITALS: BP 135/71
[2020-11-06 11:54] VITALS: BP 140/80
[2020-11-06] MEDS ORDERED: HEPARIN 500 UNITS/5ML MDV INJ ONE (14:00)
== END 2020-11-06 13:56 | disposition home or self-care (01) | DRG 683 ==
LOC: MED/SURG 15:42
DX: I12.9 Hypertensive chronic kidney disease with stage 1 through stage 4 chronic kidney disease, or unspecified chronic kidney disease (principal); N18.4 Chronic kidney disease, stage 4 (severe); Z68.41 Body mass index [BMI] 40.0-44.9, adult; D50.9 Iron deficiency anemia, unspecified; D63.1 Anemia in chronic kidney disease; I48.91 Unspecified atrial fibrillation; Z79.01 Long term (current) use of anticoagulants; R60.9 Edema, unspecified; K21.9 Gastro-esophageal reflux disease without esophagitis; E78.5 Hyperlipidemia, unspecified; M17.11 Unilateral primary osteoarthritis, right knee; E11.22 Type 2 diabetes mellitus with diabetic chronic kidney disease; E66.01 Morbid (severe) obesity due to excess calories
CPT/HCPCS: 36415; 80053; 85025; 85610; 86850; 86900; 86920; 93970; J1940; J7050; P9016; U0002

== ENCOUNTER 2020-12-01 11:46 | Inpatient (IN) | payer MEDICARE, BC ==
[~2020-12-01] VITALS: Ht 167.6 cm; Wt 119.3 kg
[2020-12-01 13:33] LABS: BASOPHILS % 0.5 % (0.0-1.0); EOSINOPHILS # (AUTO) 0.3 (0.0-0.4); LYMPHOCYTES # (AUTO) 0.9 (1.0-3.2); LYMPHOCYTES % 10.1 % (18.0-39.1); MEAN CORPUSCULAR HEMOGLOBIN 28.6 pg (28-32); MEAN CORPUSCULAR HGB CONC 28.9 g/dL (31-35); MONOCYTES # (AUTO) 0.5 (0.2-0.8); MONOCYTES % 6.3 % (4.4-11.3); NEUTROPHILS # (AUTO) 6.7 (2.1-6.9); NEUTROPHILS % 79.5 % (38.7-80.0); PLATELET COUNT 471 x10e3/uL (140-360); RED BLOOD COUNT 2.03 x10e6/uL (3.6-5.1); RED CELL DISTRIBUTION WIDTH 17.2 % (11.7-14.4)
[2020-12-01 13:42] LABS: HEMATOCRIT 20.1 % (34.2-44.1); HEMOGLOBIN 5.8 g/dL (12.0-16.0)
[2020-12-01 13:54] LABS: ALBUMIN 2.7 g/dL (3.5-5.0); ALBUMIN/GLOBULIN RATIO 0.6 (0.8-2.0); ALKALINE PHOSPHATASE 63 IU/L (40-150); ANION GAP 18.2 mmol/L (8-16); BLOOD UREA NITROGEN 35 mg/dL (7-26); BUN/CREATININE RATIO 13 (6-25); CALCIUM 8.4 mg/dL (8.4-10.2); CARBON DIOXIDE 20 mmol/L (22-29); CHLORIDE 107 mmol/L (98-107); CREATININE, SERUM 2.63 mg/dL (0.57-1.11); EST GLOMERULAR FILTRATION RATE 18 ML/MIN (60-); GLUCOSE 96 mg/dL (74-118); POTASSIUM 5.2 mmol/L (3.5-5.1); SODIUM 140 mmol/L (136-145)
[2020-12-01 13:55] LABS: ALANINE AMINOTRANSFERASE < 6 IU/L (0-55)
[2020-12-01] MEDS ORDERED: SODIUM CHLORIDE 0.9% 250ML 250 ML IV ONE (14:00)
[2020-12-01] MEDS ORDERED: SODIUM CHLORIDE 0.9% 500ML 500 ML ONE (17:22)
[2020-12-01 17:57] VITALS: BP 135/60
[2020-12-01 18:01] VITALS: BP 141/69
[2020-12-01] MEDS: GEMFIBROZIL 600 MG TAB PO SCH (19:00)
[2020-12-01] MEDS ORDERED: ONDANSETRON HCL 4 MG ORAL DISINTEGRATING TAB PO PRN (19:00)
[2020-12-01] MEDS: APIXABAN 5 MG TABLET PO SCH (19:00)
[2020-12-01 19:54] VITALS: BP 146/60
[2020-12-01 21:00] VITALS: BP 146/60
[2020-12-01 23:57] VITALS: BP 128/57
[2020-12-02] VITALS (7 sets, daily range): BP systolic 141–163; BP diastolic 63–72
[2020-12-02] MEDS: ACETAMINOPHEN 325 MG TAB PO PRN ×3 (01:30→14:36)
[2020-12-02] MEDS: LEVOTHYROXINE SODIUM 88 MCG TAB PO SCH (04:47)
[2020-12-02] MEDS ORDERED: LANSOPRAZOLE30 MG PO (04:50)
[2020-12-02] MEDS ORDERED: ESTRADIOL0.5 MG PO (04:50)
[2020-12-02] MEDS ORDERED: FUROSEMIDE20 MG PO (04:50)
[2020-12-02 05:15] LABS: BASOPHILS # (AUTO) 0.1 (0.0-0.1); BASOPHILS % 0.6 % (0.0-1.0); EOSINOPHILS # (AUTO) 0.3 (0.0-0.4); EOSINOPHILS % 3.3 % (0.0-6.0); HEMATOCRIT 24.6 % (34.2-44.1); HEMOGLOBIN 7.7 g/dL (12.0-16.0); LYMPHOCYTES # (AUTO) 1.3 (1.0-3.2); LYMPHOCYTES % 15.2 % (18.0-39.1); MEAN CORPUSCULAR HEMOGLOBIN 30.1 pg (28-32); MEAN CORPUSCULAR HGB CONC 31.3 g/dL (31-35); MEAN CORPUSCULAR VOLUME 96.1 fL (81-99); MONOCYTES # (AUTO) 0.6 (0.2-0.8); MONOCYTES % 7.2 % (4.4-11.3); NEUTROPHILS # (AUTO) 6.1 (2.1-6.9); PLATELET COUNT 443 x10e3/uL (140-360); RED BLOOD COUNT 2.56 x10e6/uL (3.6-5.1); RED CELL DISTRIBUTION WIDTH 20.6 % (11.7-14.4)
[2020-12-02 05:57] LABS: CALCIUM 8.9 mg/dL (8.4-10.2); CREATININE, SERUM 2.81 mg/dL (0.57-1.11)
[2020-12-02] MEDS: AMIODARONE HCL 200 MG TAB PO SCH (08:18)
[2020-12-02] MEDS: GEMFIBROZIL 600 MG TAB PO SCH ×2 (08:18→17:00)
[2020-12-02] MEDS: APIXABAN 5 MG TABLET PO SCH (08:18)
[2020-12-02] MEDS: NYSTATIN 100,000 UNITS/GM CRM 30GM TUBE TOP SCH ×2 (08:19→17:00)
[2020-12-02] MEDS: MULTIVITAMINS/MINERALS TAB PO SCH (08:19)
[2020-12-02] MEDS: PANTOPRAZOLE SOD 40 MG TABEC PO SCH (08:19)
[2020-12-02] MEDS: ASCORBIC ACID 500 MG TAB PO SCH (08:19)
[2020-12-02] MEDS: CYANOCOBALAMIN 1,000 MCG TAB PO SCH (08:19)
[2020-12-02] MEDS: TRAMADOL/APAP 37.5MG-325MG TAB PO PRN ×2 (08:19→14:36)
[2020-12-02] MEDS ORDERED: SODIUM CHLORIDE 0.9% 250ML 250 ML ONE (08:43)
[2020-12-02] MEDS ORDERED: IRON SUCROSE 100 MG in SODIUM CHLORIDE 0.9% 100 ML 100 ML IV SCH (09:00)
[2020-12-02] MEDS ORDERED: SODIUM CHLORIDE 0.9% 500ML 500 ML ONE (14:01)
[2020-12-03] VITALS (9 sets, daily range): BP systolic 134–167; BP diastolic 55–76
[2020-12-03] MEDS: LEVOTHYROXINE SODIUM 88 MCG TAB PO SCH (06:15)
[2020-12-03 06:18] LABS: HEMATOCRIT 29.7 % (34.2-44.1); HEMOGLOBIN 9.2 g/dL (12.0-16.0)
[2020-12-03] MEDS: MULTIVITAMINS/MINERALS TAB PO SCH (08:49)
[2020-12-03] MEDS: ASCORBIC ACID 500 MG TAB PO SCH (08:49)
[2020-12-03] MEDS: PANTOPRAZOLE SOD 40 MG TABEC PO SCH (08:49)
[2020-12-03] MEDS: CYANOCOBALAMIN 1,000 MCG TAB PO SCH (08:49)
[2020-12-03] MEDS: NYSTATIN 100,000 UNITS/GM CRM 30GM TUBE TOP SCH ×2 (08:49→17:00)
[2020-12-03] MEDS: GEMFIBROZIL 600 MG TAB PO SCH ×2 (08:50→17:00)
[2020-12-03] MEDS: AMIODARONE HCL 200 MG TAB PO SCH (08:50)
[2020-12-03] MEDS: TRAMADOL/APAP 37.5MG-325MG TAB PO PRN (08:55)
[2020-12-03] MEDS: EPOETIN ALFA-EPBX 10,000 UNIT/ML VIAL SC SCH (08:56)
[2020-12-04] VITALS (8 sets, daily range): BP systolic 115–148; BP diastolic 47–73
[2020-12-04] MEDS: LEVOTHYROXINE SODIUM 88 MCG TAB PO SCH (05:28)
[2020-12-04 06:20] LABS: INR 0.98; PROTHROMBIN TIME 13.6 seconds (11.9-14.5)
[2020-12-04 06:21] LABS: PARTIAL THROMBOPLASTIN TIME 31.6 seconds (23.8-35.5)
[2020-12-04] MEDS: CYANOCOBALAMIN 1,000 MCG TAB PO SCH (09:00)
[2020-12-04] MEDS: ASCORBIC ACID 500 MG TAB PO SCH (09:00)
[2020-12-04] MEDS: ESTRADIOL 0.5 MG PO SCH (09:00)
[2020-12-04] MEDS: MULTIVITAMINS/MINERALS TAB PO SCH (09:00)
[2020-12-04] MEDS: NYSTATIN 100,000 UNITS/GM CRM 30GM TUBE TOP SCH ×3 (09:00→21:33)
[2020-12-04] MEDS ORDERED: NON-FORMULARY MEDICATION (Lansoprazole 30 MG) PO SCH (09:00)
[2020-12-04] MEDS: GEMFIBROZIL 600 MG TAB PO SCH ×2 (09:00→17:47)
[2020-12-04] MEDS: PANTOPRAZOLE SOD 40 MG TABEC PO SCH (09:45)
[2020-12-04] MEDS: AMIODARONE HCL 200 MG TAB PO SCH (09:45)
[2020-12-04] MEDS: TRAMADOL/APAP 37.5MG-325MG TAB PO PRN (09:45)
[2020-12-04] MEDS ORDERED: MIDAZOLAM HCL 2 MG/2 ML VIAL ONE (15:46)
[2020-12-04] MEDS ORDERED: FENTANYL CITRATE/PF 100MCG/2 ML INJ ONE (15:46)
[2020-12-04] MEDS ORDERED: SODIUM CHLORIDE 0.9% 250ML 250 ML ONE (15:54)
[2020-12-05] VITALS: BP 123/59
[2020-12-05 04:00] VITALS: BP 118/45
[2020-12-05] MEDS: LEVOTHYROXINE SODIUM 88 MCG TAB PO SCH (05:26)
[2020-12-05 07:31] VITALS: BP 139/64
[2020-12-05] MEDS: AMIODARONE HCL 200 MG TAB PO SCH (08:19)
[2020-12-05] MEDS: MULTIVITAMINS/MINERALS TAB PO SCH (08:20)
[2020-12-05] MEDS: ESTRADIOL 0.5 MG PO SCH (08:20)
[2020-12-05] MEDS: GEMFIBROZIL 600 MG TAB PO SCH (08:20)
[2020-12-05] MEDS: ASCORBIC ACID 500 MG TAB PO SCH (08:21)
[2020-12-05] MEDS: CYANOCOBALAMIN 1,000 MCG TAB PO SCH (08:21)
[2020-12-05] MEDS: PANTOPRAZOLE SOD 40 MG TABEC PO SCH (08:21)
[2020-12-05] MEDS: APIXABAN 5 MG TABLET PO SCH (08:22)
[2020-12-05 09:07] VITALS: BP 139/64
[2020-12-05] MEDS: NYSTATIN 100,000 UNITS/GM CRM 30GM TUBE TOP SCH (09:25)
[2020-12-05 09:27] LABS: HEMATOCRIT 28.7 % (34.2-44.1); HEMOGLOBIN 8.8 g/dL (12.0-16.0)
[2020-12-05] MEDS: EPOETIN ALFA-EPBX 10,000 UNIT/ML VIAL SC SCH (09:56)
[2020-12-05 11:09] VITALS: BP 144/58
[2020-12-07] MEDS ORDERED: ERGOCALCIFEROL 50,000 UNIT CAP PO SCH (09:00)
== END 2020-12-05 14:50 | DRG 683 ==
LOC: ER 13:27 → ERHOLD 13:52 → MED/SURG2 15:20 → MED/SURG 12-03 21:49
PROC: 30233N1 Transfusion of Nonautologous Red Blood Cells into Peripheral Vein, Percutaneous Approach (ICD-10-PCS; 2020-12-01)
PROC: 07DR3ZX Extraction of Iliac Bone Marrow, Percutaneous Approach, Diagnostic (ICD-10-PCS; principal; 2020-12-04)
DX: I12.9 Hypertensive chronic kidney disease with stage 1 through stage 4 chronic kidney disease, or unspecified chronic kidney disease (principal); N18.4 Chronic kidney disease, stage 4 (severe); Z68.42 Body mass index [BMI] 45.0-49.9, adult; D63.1 Anemia in chronic kidney disease; I48.91 Unspecified atrial fibrillation; Z79.01 Long term (current) use of anticoagulants; K21.9 Gastro-esophageal reflux disease without esophagitis; E78.5 Hyperlipidemia, unspecified; M17.11 Unilateral primary osteoarthritis, right knee; D50.9 Iron deficiency anemia, unspecified; E66.01 Morbid (severe) obesity due to excess calories; I25.10 Atherosclerotic heart disease of native coronary artery without angina pectoris
CPT/HCPCS: 36415; 38222; 74470; 80048; 80053; 82948; 85014; 85018; 85025; 85049; 85384; 85610; 85730; 86850; 86900; 86920; 97139; 99152; 99153; 99284; J1756; J2250; J3010; J7040; J7050; P9016; Q0162; U0002

== ENCOUNTER 2021-08-06 13:50 | Observation (INO) | payer MEDICARE, BC ==
[2021-08-06] VITALS (8 sets, daily range): BP systolic 115–143; BP diastolic 36–69
[~2021-08-06] VITALS: Ht 167.6 cm; Wt 119.3 kg
[~2021-08-06 13:50] MED LIST changes: +ESTRADIOL0.5 MG PO; +FUROSEMIDE20 MG PO; +LANSOPRAZOLE30 MG PO
[2021-08-06 14:40] LABS: BASOPHILS % 0.5 % (0.0-1.0); EOSINOPHILS # (AUTO) 0.5 (0.0-0.4); EOSINOPHILS % 6.6 % (0.0-6.0); LYMPHOCYTES # (AUTO) 1.1 (1.0-3.2); LYMPHOCYTES % 14.3 % (18.0-39.1); MEAN CORPUSCULAR HEMOGLOBIN 31.2 pg (28-32); MEAN CORPUSCULAR HGB CONC 29.5 g/dL (31-35); MEAN CORPUSCULAR VOLUME 105.9 fL (81-99); MONOCYTES # (AUTO) 0.5 (0.2-0.8); MONOCYTES % 6.4 % (4.4-11.3); NEUTROPHILS # (AUTO) 5.5 (2.1-6.9); NEUTROPHILS % 71.3 % (38.7-80.0); PLATELET COUNT 330 x10e3/uL (140-360); RED BLOOD COUNT 2.05 x10e6/uL (3.6-5.1); RED CELL DISTRIBUTION WIDTH 15.7 % (11.7-14.4)
[2021-08-06 14:43] LABS: HEMATOCRIT 21.7 % (34.2-44.1); HEMOGLOBIN 6.4 g/dL (12.0-16.0)
[2021-08-06] MEDS ORDERED: SODIUM CHLORIDE 0.9% 250ML 250 ML IV ONE (14:45)
[2021-08-06 15:03] LABS: ALBUMIN 3.3 g/dL (3.5-5.0); ALBUMIN/GLOBULIN RATIO 0.8 (0.8-2.0); ANION GAP 18.9 mmol/L (8-16); CALCIUM 8.4 mg/dL (8.4-10.2); CREATININE, SERUM 2.69 mg/dL (0.57-1.11); POTASSIUM 3.9 mmol/L (3.5-5.1)
[2021-08-06] MEDS ORDERED: SODIUM CHLORIDE 0.9% 250ML 250 ML ONE (20:51)
[2021-08-06] MEDS ORDERED: PRILOSEC OTC20 MG (21:34)
[2021-08-06] MEDS ORDERED: LEVOTHYROXINE88 MCG PO (21:34)
[2021-08-06] MEDS ORDERED: NORVASC5 MG PO (21:34)
[2021-08-06] MEDS ORDERED: HEMOCYTE PLUS1 EACH PO (21:39)
[2021-08-06] MEDS ORDERED: SODIUM BICARBO650 MG PO (21:39)
[2021-08-07] MEDS: GEMFIBROZIL 600 MG TAB PO SCH ×3 (00:11→16:27)
[2021-08-07] MEDS: AMLODIPINE BESYLATE 5 MG TAB PO SCH ×3 (00:11→16:27)
[2021-08-07] MEDS: APIXABAN 5 MG TABLET PO SCH ×3 (00:11→16:27)
[2021-08-07] MEDS: IRON-VITAMIN-MINERAL CAPSULE PO SCH ×2 (00:15→11:29)
[2021-08-07] MEDS ORDERED: IRON-VITAMIN-MINERAL CAPSULE ONE (00:23)
[2021-08-07 02:37] LABS: BASOPHILS % 0.5 % (0.0-1.0); EOSINOPHILS # (AUTO) 0.6 (0.0-0.4); EOSINOPHILS % 7.5 % (0.0-6.0); HEMOGLOBIN 7.6 g/dL (12.0-16.0); LYMPHOCYTES # (AUTO) 1.3 (1.0-3.2); LYMPHOCYTES % 16.2 % (18.0-39.1); MEAN CORPUSCULAR HEMOGLOBIN 30.9 pg (28-32); MEAN CORPUSCULAR HGB CONC 30.4 g/dL (31-35); MEAN CORPUSCULAR VOLUME 101.6 fL (81-99); MONOCYTES # (AUTO) 0.6 (0.2-0.8); MONOCYTES % 8.2 % (4.4-11.3); NEUTROPHILS # (AUTO) 5.3 (2.1-6.9); NEUTROPHILS % 67.1 % (38.7-80.0); PLATELET COUNT 317 x10e3/uL (140-360); RED BLOOD COUNT 2.46 x10e6/uL (3.6-5.1); RED CELL DISTRIBUTION WIDTH 16.7 % (11.7-14.4)
[2021-08-07 03:52] VITALS: BP 148/64
[2021-08-07 05:08] LABS: BASOPHILS # (AUTO) 0.1 (0.0-0.1); BASOPHILS % 0.6 % (0.0-1.0); EOSINOPHILS # (AUTO) 0.5 (0.0-0.4); EOSINOPHILS % 6.4 % (0.0-6.0); HEMOGLOBIN 7.6 g/dL (12.0-16.0); LYMPHOCYTES # (AUTO) 1.1 (1.0-3.2); LYMPHOCYTES % 13.6 % (18.0-39.1); MEAN CORPUSCULAR HEMOGLOBIN 30.6 pg (28-32); MEAN CORPUSCULAR HGB CONC 30.4 g/dL (31-35); MEAN CORPUSCULAR VOLUME 100.8 fL (81-99); MONOCYTES # (AUTO) 0.6 (0.2-0.8); MONOCYTES % 7.7 % (4.4-11.3); NEUTROPHILS # (AUTO) 5.6 (2.1-6.9); NEUTROPHILS % 71.3 % (38.7-80.0); PLATELET COUNT 296 x10e3/uL (140-360); RED BLOOD COUNT 2.48 x10e6/uL (3.6-5.1); RED CELL DISTRIBUTION WIDTH 16.7 % (11.7-14.4)
[2021-08-07] MEDS ORDERED: FUROSEMIDE INJ 10 MG/ML 4 ML VIAL IV ONE (06:45)
[2021-08-07] MEDS ORDERED: SODIUM CHLORIDE 0.9% 250ML 250 ML IV ONE (07:00)
[2021-08-07] MEDS ORDERED: LEVOTHYROXINE SODIUM 88 MCG TAB PO SCH (07:30)
[2021-08-07 08:12] VITALS: BP 129/52
[2021-08-07 08:16] VITALS: BP 129/52
[2021-08-07] MEDS ORDERED: CYANOCOBALAMIN 1,000 MCG TAB PO SCH (09:00)
[2021-08-07] MEDS ORDERED: ASCORBIC ACID 500 MG TAB PO SCH (09:00)
[2021-08-07] MEDS ORDERED: AMIODARONE HCL 200 MG TAB PO SCH (09:00)
[2021-08-07] MEDS ORDERED: ESTRADIOL 1 MG TAB PO SCH (09:00)
[2021-08-07] MEDS ORDERED: SODIUM BICARBONATE 650 MG TAB PO SCH (09:00)
[2021-08-07] MEDS ORDERED: MULTIVITAMINS/MINERALS TAB PO SCH (09:00)
[2021-08-07] MEDS ORDERED: ACETAMINOPHEN/CODEINE 300MG - 30MG TAB PO PRN (09:45)
[2021-08-07] MEDS ORDERED: TYLENOL #3 PO (09:51)
[2021-08-07 11:54] VITALS: BP 130/57
[2021-08-07] MEDS: FUROSEMIDE INJ 10 MG/ML 2 ML VIAL IV PRN ×2 (12:44→17:25)
[2021-08-07] MEDS ORDERED: SODIUM CHLORIDE 0.9% 250ML 250 ML ONE (13:36)
[2021-08-07] MEDS ORDERED: DIPHENHYDRAMINE HCL 25 MG CAP PO ONE (16:00)
[2021-08-07 16:09] VITALS: BP 123/50
[2021-08-07 19:11] LABS: BASOPHILS % 0.4 % (0.0-1.0); EOSINOPHILS # (AUTO) 0.4 (0.0-0.4); EOSINOPHILS % 4.5 % (0.0-6.0); HEMATOCRIT 29.9 % (34.2-44.1); HEMOGLOBIN 9.4 g/dL (12.0-16.0); LYMPHOCYTES # (AUTO) 1.2 (1.0-3.2); LYMPHOCYTES % 13.9 % (18.0-39.1); MEAN CORPUSCULAR HEMOGLOBIN 30.1 pg (28-32); MEAN CORPUSCULAR HGB CONC 31.4 g/dL (31-35); MEAN CORPUSCULAR VOLUME 95.8 fL (81-99); MONOCYTES # (AUTO) 0.7 (0.2-0.8); MONOCYTES % 8.1 % (4.4-11.3); NEUTROPHILS % 72.7 % (38.7-80.0); PLATELET COUNT 310 x10e3/uL (140-360); RED BLOOD COUNT 3.12 x10e6/uL (3.6-5.1); RED CELL DISTRIBUTION WIDTH 18.8 % (11.7-14.4)
[2021-08-07] MEDS ORDERED: HEPARIN 500 UNITS/5ML MDV INJ ONE (19:45)
[2021-08-08] MEDS ORDERED: IRON-VITAMIN-MINERAL CAPSULE PO SCH (09:00)
== END 2021-08-07 20:47 | disposition home or self-care (01) ==
LOC: ER 14:00 → ERHOLD 14:01 → MED/SURG3 15:27
DX: I12.9 Hypertensive chronic kidney disease with stage 1 through stage 4 chronic kidney disease, or unspecified chronic kidney disease (principal); N18.4 Chronic kidney disease, stage 4 (severe); D63.1 Anemia in chronic kidney disease; K21.9 Gastro-esophageal reflux disease without esophagitis; E78.5 Hyperlipidemia, unspecified; I48.91 Unspecified atrial fibrillation; Z79.01 Long term (current) use of anticoagulants; E11.22 Type 2 diabetes mellitus with diabetic chronic kidney disease; Z20.822 Contact with and (suspected) exposure to COVID-19; Z79.4 Long term (current) use of insulin
CPT/HCPCS: 36415 ×2; 71045; 80053; 85025 ×2; 86850; 86900; 86920; 93005; 96360; 96361; 99284; G0378 ×2; J1940 ×2; J7050 ×2; P9016 ×2; U0002

== ENCOUNTER 2021-09-30 16:41 | Inpatient (IN) | payer MEDICARE, BC ==
[~2021-09-30] VITALS: Ht 167.6 cm; Wt 119.5 kg
[~2021-09-30 16:41] MED LIST changes: +HEMOCYTE PLUS1 EACH PO; +LEVOTHYROXINE88 MCG PO; +NORVASC5 MG PO; +PRILOSEC OTC20 MG; +SODIUM BICARBO650 MG PO; +TYLENOL #3 PO
[2021-09-30 18:04] LABS: BASOPHILS # (AUTO) 0.1 (0.0-0.1); BASOPHILS % 0.7 % (0.0-1.0); EOSINOPHILS # (AUTO) 0.5 (0.0-0.4); HEMATOCRIT 23.4 % (34.2-44.1); HEMOGLOBIN 7.2 g/dL (12.0-16.0); LYMPHOCYTES % 12.5 % (18.0-39.1); MEAN CORPUSCULAR HEMOGLOBIN 30.6 pg (28-32); MEAN CORPUSCULAR HGB CONC 30.8 g/dL (31-35); MEAN CORPUSCULAR VOLUME 99.6 fL (81-99); MONOCYTES # (AUTO) 0.6 (0.2-0.8); NEUTROPHILS # (AUTO) 5.4 (2.1-6.9); NEUTROPHILS % 71.3 % (38.7-80.0); PLATELET COUNT 360 x10e3/uL (140-360); RED BLOOD COUNT 2.35 x10e6/uL (3.6-5.1); RED CELL DISTRIBUTION WIDTH 15.7 % (11.7-14.4)
[2021-09-30 18:13] LABS: INR 1.16; PROTHROMBIN TIME 15.8 seconds (11.9-14.5)
[2021-09-30 18:14] LABS: PARTIAL THROMBOPLASTIN TIME 54.9 seconds (23.8-35.5)
[2021-09-30 18:18] LABS: ANION GAP 16.9 mmol/L (8-16); CALCIUM 8.4 mg/dL (8.4-10.2); CREATININE, SERUM 2.83 mg/dL (0.57-1.11); POTASSIUM 3.9 mmol/L (3.5-5.1)
[2021-09-30] MEDS ORDERED: HEPARIN 500 UNITS/5ML MDV INJ ONE (19:00)
[2021-09-30] MEDS ORDERED: ONDANSETRON HCL INJ 2MG/ML 2ML 2 MG/ML VIAL IV PRN (19:15)
[2021-09-30] MEDS ORDERED: SODIUM CHLORIDE FLUSH 10 ML SYR INJ PRN (19:15)
[2021-09-30] MEDS ORDERED: SODIUM CHLORIDE 0.9% 250ML 250 ML IV ONE (19:15)
[2021-09-30] MEDS ORDERED: FUROSEMIDE INJ 10 MG/ML 2 ML VIAL IV SCH (19:15)
[2021-09-30 20:00] VITALS: BP 136/64
[2021-09-30 20:21] VITALS: BP 136/64
[2021-09-30] MEDS ORDERED: DIPHENHYDRAMINE HCL INJ 50 MG/ML VIAL IV ONE (21:30)
[2021-09-30] MEDS ORDERED: SODIUM CHLORIDE 0.9% 250ML 250 ML ONE (22:56)
[2021-09-30 23:56] VITALS: BP 124/50
[2021-10-01] VITALS (8 sets, daily range): BP systolic 124–137; BP diastolic 55–64
[2021-10-01] MEDS ORDERED: HEPARIN 500 UNITS/5ML MDV INJ PRN (01:30)
[2021-10-01] MEDS ORDERED: DIPHENHYDRAMINE HCL INJ 50 MG/ML VIAL IV ONE ×2 (03:15→14:00)
[2021-10-01 06:40] LABS: BASOPHILS % 0.5 % (0.0-1.0); EOSINOPHILS # (AUTO) 0.6 (0.0-0.4); EOSINOPHILS % 7.6 % (0.0-6.0); HEMOGLOBIN 7.8 g/dL (12.0-16.0); LYMPHOCYTES # (AUTO) 1.1 (1.0-3.2); LYMPHOCYTES % 14.6 % (18.0-39.1); MEAN CORPUSCULAR HGB CONC 31.2 g/dL (31-35); MEAN CORPUSCULAR VOLUME 99.2 fL (81-99); MONOCYTES # (AUTO) 0.6 (0.2-0.8); MONOCYTES % 7.8 % (4.4-11.3); PLATELET COUNT 341 x10e3/uL (140-360); RED BLOOD COUNT 2.52 x10e6/uL (3.6-5.1); RED CELL DISTRIBUTION WIDTH 15.6 % (11.7-14.4)
[2021-10-01 06:57] LABS: ANION GAP 15.9 mmol/L (8-16); CALCIUM 8.6 mg/dL (8.4-10.2); CREATININE, SERUM 3.01 mg/dL (0.57-1.11); POTASSIUM 3.9 mmol/L (3.5-5.1)
[2021-10-01] MEDS ORDERED: LEVOTHYROXINE SODIUM 88 MCG TAB PO SCH (09:00)
[2021-10-01] MEDS ORDERED: APIXAB 2.5 MG TABLET PO SCH (09:00)
[2021-10-01] MEDS: MULTIVITAMINS/MINERALS TAB PO SCH (09:18)
[2021-10-01] MEDS: AMLODIPINE BESYLATE 5 MG TAB PO SCH ×2 (09:18→17:00)
[2021-10-01] MEDS: GEMFIBROZIL 600 MG TAB PO SCH ×2 (09:18→17:00)
[2021-10-01] MEDS: APIXAB 2.5 MG TABLET PO SCH ×2 (09:18→17:00)
[2021-10-01] MEDS: ESTRADIOL 1 MG TAB PO SCH (09:18)
[2021-10-01] MEDS: AMIODARONE HCL 200 MG TAB PO SCH (09:18)
[2021-10-01] MEDS ORDERED: VITAMIN D250 MC1 PO (10:22)
[2021-10-01] MEDS ORDERED: CALCIUM600 MG PO (10:22)
[2021-10-01] MEDS ORDERED: ONDANSETRON HCL 4 MG ORAL DISINTEGRATING TAB PO PRN (11:00)
[2021-10-01] MEDS ORDERED: NON-FORMULARY MEDICATION ([Tylenol #3] 1 TAB) PO PRN (11:00)
[2021-10-01] MEDS ORDERED: FUROSEMIDE INJ 10 MG/ML 4 ML VIAL IV ONE (11:45)
[2021-10-01] MEDS ORDERED: SODIUM CHLORIDE 0.9% 250ML 250 ML IV ONE (14:00)
[2021-10-01] MEDS ORDERED: DEXAMETHASONE SOD PHOS 10 MG/1 ML VIAL IV ONE (14:00)
[2021-10-01] MEDS ORDERED: ACETAMINOPHEN 325 MG TAB PO ONE (14:00)
[2021-10-01] MEDS ORDERED: FUROSEMIDE INJ 10 MG/ML 2 ML VIAL IV PRN (14:00)
[2021-10-01 14:15] LABS: FERRITIN 38.75 ng/mL (4.63-204.00)
[2021-10-01] MEDS ORDERED: EPOETIN ALFA-EPBX 10,000 UNIT/ML VIAL SC ONE (14:30)
[2021-10-01 20:54] LABS: CLARITY,URINE CLEAR (CLEAR); COLOR,URINE YELLOW (YELLOW); KETONES,URINE NEGATIVE (NEGATIVE); LEUKOCYTE ESTERASE ,URINE NEGATIVE (NEGATIVE); NITRITE,URINE NEGATIVE (NEGATIVE); PROTEIN,URINE DIPSTICK >=300 (NEGATIVE); URINE UROBILINOGEN 0.2 mg/dL (0.2 - 1)
[2021-10-01 21:06] LABS: BACTERIA,URINE FEW /HPF; EPITHELIAL CELLS,URINE FEW /LPF
[2021-10-01 21:20] LABS: CREATININE,URINE RANDOM 55.51 mg/dL (47-110); TOTAL PROTEIN, URINE 193.8 mg/dL (1-14)
[2021-10-01 22:48] LABS: HEMATOCRIT 27.5 % (34.2-44.1); HEMOGLOBIN 8.8 g/dL (12.0-16.0)
[2021-10-02] VITALS: BP 110/51
[2021-10-02 04:00] VITALS: BP 112/54
[2021-10-02 05:17] LABS: BASOPHILS % 0.1 % (0.0-1.0); HEMATOCRIT 27.4 % (34.2-44.1); HEMOGLOBIN 8.7 g/dL (12.0-16.0); LYMPHOCYTES # (AUTO) 0.6 (1.0-3.2); LYMPHOCYTES % 8.4 % (18.0-39.1); MEAN CORPUSCULAR HEMOGLOBIN 31.3 pg (28-32); MEAN CORPUSCULAR HGB CONC 31.8 g/dL (31-35); MEAN CORPUSCULAR VOLUME 98.6 fL (81-99); MONOCYTES # (AUTO) 0.2 (0.2-0.8); MONOCYTES % 3.2 % (4.4-11.3); NEUTROPHILS # (AUTO) 6.5 (2.1-6.9); NEUTROPHILS % 87.4 % (38.7-80.0); PLATELET COUNT 333 x10e3/uL (140-360); RED BLOOD COUNT 2.78 x10e6/uL (3.6-5.1)
[2021-10-02 05:39] LABS: ANION GAP 15.3 mmol/L (8-16); CALCIUM 9.1 mg/dL (8.4-10.2); CREATININE, SERUM 3.01 mg/dL (0.57-1.11); POTASSIUM 4.3 mmol/L (3.5-5.1)
[2021-10-02] MEDS ORDERED: LEVOTHYROXINE SODIUM 88 MCG TAB PO SCH (06:00)
[2021-10-02] MEDS ORDERED: PANTOPRAZOLE SOD 40 MG TABEC PO SCH (07:30)
[2021-10-02 07:55] VITALS: BP 142/68
[2021-10-02 08:02] VITALS: BP 142/68
[2021-10-02] MEDS ORDERED: FUROSEMIDE 20 MG TAB PO SCH (09:00)
[2021-10-02] MEDS ORDERED: SODIUM BICARBONATE 650 MG TAB PO SCH (09:00)
[2021-10-02] MEDS ORDERED: NON-FORMULARY MEDICATION (Calcium Carbonate (Calcium) 600 MG) PO SCH (09:00)
[2021-10-02] MEDS ORDERED: ASCORBIC ACID 500 MG TAB PO SCH (09:00)
[2021-10-02] MEDS ORDERED: CYANOCOBALAMIN 1,000 MCG TAB PO SCH (09:00)
[2021-10-02] MEDS ORDERED: IRON-VITAMIN-MINERAL CAPSULE PO SCH (09:00)
[2021-10-02] MEDS: GEMFIBROZIL 600 MG TAB PO SCH (09:01)
[2021-10-02] MEDS: AMIODARONE HCL 200 MG TAB PO SCH (09:01)
[2021-10-02] MEDS: MULTIVITAMINS/MINERALS TAB PO SCH (09:02)
[2021-10-02] MEDS: AMLODIPINE BESYLATE 5 MG TAB PO SCH ×2 (09:03→15:45)
[2021-10-02] MEDS: APIXAB 2.5 MG TABLET PO SCH ×2 (09:04→15:45)
[2021-10-02] MEDS: ESTRADIOL 1 MG TAB PO SCH (09:09)
[2021-10-02] MEDS ORDERED: SODIUM CHLORIDE 0.9% 250ML 250 ML ONE (11:30)
[2021-10-02 11:46] VITALS: BP 134/53
[2021-10-02] MEDS ORDERED: SODIUM FERRIC GLUCONATE COMPLX 125 MG in SODIUM CHLORIDE 0.9% 100 ML 100 ML IV ONE (12:00)
[2021-10-02 16:18] VITALS: BP 139/66
== END 2021-10-02 16:25 | disposition home or self-care (01) | DRG 683 ==
LOC: ER 16:45 → ERHOLD 19:04 → MED/SURG3 20:05 → OBSVTOIN 10-02 10:52
PROC: 30233N1 Transfusion of Nonautologous Red Blood Cells into Peripheral Vein, Percutaneous Approach (ICD-10-PCS; principal; 2021-10-02)
DX: I12.9 Hypertensive chronic kidney disease with stage 1 through stage 4 chronic kidney disease, or unspecified chronic kidney disease (principal); N18.4 Chronic kidney disease, stage 4 (severe); N17.9 Acute kidney failure, unspecified; D63.1 Anemia in chronic kidney disease; I48.91 Unspecified atrial fibrillation; Z79.01 Long term (current) use of anticoagulants; R60.0 Localized edema; Z20.822 Contact with and (suspected) exposure to COVID-19
CPT/HCPCS: 36415; 71045; 76770; 80048; 81001; 82570; 82607; 82728; 82746; 83540; 83615; 83880; 84156; 84466; 85014; 85018; 85025; 85045; 85610; 85730; 86850; 86900; 86920; 94799; 96360; 99251; 99284; G0378; J1100; J1200; J1940; J2916; J7050; P9016; U0002

== ENCOUNTER 2022-02-05 12:35 | Observation (INO) | payer MEDICARE, BC ==
[~2022-02-05] VITALS: Ht 167.6 cm; Wt 119.3 kg
[~2022-02-05 12:35] MED LIST changes: +CALCIUM600 MG PO; -PRILOSEC OTC20 MG; +PRILOSEC OTC20 MG PO; +VITAMIN D250 MC1 PO
[2022-02-05] MEDS ORDERED: ACETAMINOPHEN 325 MG TAB PO STA (13:17)
[2022-02-05] MEDS ORDERED: FUROSEMIDE INJ 10 MG/ML 2 ML VIAL IV PRN (13:30)
[2022-02-05] MEDS ORDERED: ONDANSETRON HCL INJ 2MG/ML 2ML 2 MG/ML VIAL IV PRN (13:30)
[2022-02-05] MEDS ORDERED: DEXAMETHASONE SOD PHOS 10 MG/1 ML VIAL IV ONE (13:30)
[2022-02-05] MEDS ORDERED: DIPHENHYDRAMINE HCL INJ 50 MG/ML VIAL IV ONE (13:30)
[2022-02-05] MEDS ORDERED: SODIUM CHLORIDE 0.9% 250ML 250 ML IV ONE (13:30)
[2022-02-05 13:56] LABS: BASOPHILS % 0.4 % (0.0-1.0); EOSINOPHILS # (AUTO) 0.6 (0.0-0.4); EOSINOPHILS % 5.6 % (0.0-6.0); LYMPHOCYTES # (AUTO) 1.7 (1.0-3.2); LYMPHOCYTES % 15.2 % (18.0-39.1); MEAN CORPUSCULAR HEMOGLOBIN 30.1 pg (28-32); MEAN CORPUSCULAR HGB CONC 30.4 g/dL (31-35); MEAN CORPUSCULAR VOLUME 99.1 fL (81-99); MONOCYTES # (AUTO) 0.7 (0.2-0.8); MONOCYTES % 6.1 % (4.4-11.3); NEUTROPHILS # (AUTO) 7.9 (2.1-6.9); NEUTROPHILS % 72.1 % (38.7-80.0); PLATELET COUNT 392 x10e3/uL (140-360); RED BLOOD COUNT 2.26 x10e6/uL (3.6-5.1); RED CELL DISTRIBUTION WIDTH 15.2 % (11.7-14.4)
[2022-02-05 14:00] LABS: HEMATOCRIT 22.4 % (34.2-44.1); HEMOGLOBIN 6.8 g/dL (12.0-16.0)
[2022-02-05 14:18] LABS: ALBUMIN 3.2 g/dL (3.5-5.0); ALBUMIN/GLOBULIN RATIO 0.9 (0.8-2.0); ANION GAP 18.6 mmol/L (8-16); CREATININE, SERUM 2.95 mg/dL (0.57-1.11); POTASSIUM 3.6 mmol/L (3.5-5.1)
[2022-02-05 14:40] VITALS: BP 150/56
[2022-02-05] MEDS ORDERED: CALCITRIOL0.25 MCG PO (15:28)
[2022-02-05 16:28] VITALS: BP 137/53
[2022-02-05 20:00] VITALS: BP 133/54
[2022-02-05] MEDS ORDERED: ACETAMINOPHEN 325 MG TAB ONE (20:25)
[2022-02-05] MEDS ORDERED: DIPHENHYDRAMINE HCL INJ 50 MG/ML VIAL ONE (20:26)
[2022-02-05] MEDS ORDERED: SODIUM CHLORIDE 0.9% 250ML 250 ML ONE (20:27)
[2022-02-05] MEDS ORDERED: DEXAMETHASONE SOD PHOS 10 MG/1 ML VIAL ONE (20:27)
[2022-02-05 21:00] VITALS: BP 133/54
[2022-02-06] VITALS: BP 133/62
[2022-02-06 04:00] VITALS: BP 157/62
[2022-02-06] MEDS ORDERED: LEVOTHYROXINE SODIUM 88 MCG TAB PO SCH (06:00)
[2022-02-06 06:23] LABS: BASOPHILS % 0.2 % (0.0-1.0); EOSINOPHILS % 0.1 % (0.0-6.0); HEMATOCRIT 26.2 % (34.2-44.1); HEMOGLOBIN 8.3 g/dL (12.0-16.0); LYMPHOCYTES # (AUTO) 0.4 (1.0-3.2); LYMPHOCYTES % 4.3 % (18.0-39.1); MEAN CORPUSCULAR HEMOGLOBIN 30.2 pg (28-32); MEAN CORPUSCULAR HGB CONC 31.7 g/dL (31-35); MEAN CORPUSCULAR VOLUME 95.3 fL (81-99); MONOCYTES # (AUTO) 0.1 (0.2-0.8); MONOCYTES % 0.5 % (4.4-11.3); NEUTROPHILS # (AUTO) 8.8 (2.1-6.9); NEUTROPHILS % 94.3 % (38.7-80.0); PLATELET COUNT 311 x10e3/uL (140-360); RED BLOOD COUNT 2.75 x10e6/uL (3.6-5.1); RED CELL DISTRIBUTION WIDTH 16.6 % (11.7-14.4)
[2022-02-06 09:44] VITALS: BP 132/57
[2022-02-06 09:53] VITALS: BP 132/57
[2022-02-06 11:15] LABS: LYMPHOCYTES % (MANUAL) 7 % (19-48); NEUTROPHILS % (MANUAL) 93 % (40-74); PLATELET ESTIMATE ADEQUATE; PLATELET MORPHOLOGY COMMENT NORMAL; RBC MORPHOLOGY COMMENT NORMAL
[2022-02-06 12:51] VITALS: BP 130/64
[2022-02-06] MEDS ORDERED: IRON DEXTRAN INJ 50 MG in SODIUM CHLORIDE 0.9% 100 ML IV ONE (13:00)
[2022-02-06] MEDS ORDERED: HEPARIN 500 UNITS/5ML MDV INJ ONE (13:45)
[2022-02-07] MEDS ORDERED: LEVOTHYROXINE SODIUM 50 MCG TAB PO SCH (06:00)
== END 2022-02-06 15:29 | disposition home or self-care (01) ==
LOC: ER 12:40 → ERHOLD 13:20 → MED/SURG3 14:43
DX: D64.9 Anemia, unspecified (principal); I12.9 Hypertensive chronic kidney disease with stage 1 through stage 4 chronic kidney disease, or unspecified chronic kidney disease; N18.4 Chronic kidney disease, stage 4 (severe); I48.91 Unspecified atrial fibrillation; Z79.01 Long term (current) use of anticoagulants; E03.9 Hypothyroidism, unspecified; Z20.822 Contact with and (suspected) exposure to COVID-19
CPT/HCPCS: 36415 ×2; 80053; 85025 ×2; 86850; 86900; 86920; G0378 ×2; J1100; J1200; J1750; J1940; J7050 ×2; P9016 ×2; U0002

== ENCOUNTER 2022-03-25 10:14 | Observation (INO) | payer MEDICARE, BC ==
[~2022-03-25] VITALS: Ht 167.6 cm; Wt 119.3 kg
[2022-03-25] MEDS ORDERED: ONDANSETRON HCL INJ 2MG/ML 2ML 2 MG/ML VIAL IV PRN (11:00)
[2022-03-25 12:10] LABS: BASOPHILS % 0.4 % (0.0-1.0); EOSINOPHILS # (AUTO) 0.6 (0.0-0.4); EOSINOPHILS % 8.3 % (0.0-6.0); LYMPHOCYTES # (AUTO) 0.7 (1.0-3.2); LYMPHOCYTES % 9.4 % (18.0-39.1); MEAN CORPUSCULAR HEMOGLOBIN 30.3 pg (28-32); MEAN CORPUSCULAR HGB CONC 29.6 g/dL (31-35); MEAN CORPUSCULAR VOLUME 102.5 fL (81-99); MONOCYTES # (AUTO) 0.5 (0.2-0.8); MONOCYTES % 6.5 % (4.4-11.3); NEUTROPHILS # (AUTO) 5.5 (2.1-6.9); NEUTROPHILS % 74.9 % (38.7-80.0); PLATELET COUNT 338 x10e3/uL (140-360); RED BLOOD COUNT 1.98 x10e6/uL (3.6-5.1); RED CELL DISTRIBUTION WIDTH 15.4 % (11.7-14.4)
[2022-03-25 12:15] LABS: HEMATOCRIT 20.3 % (34.2-44.1)
[2022-03-25 12:22] LABS: INR 1.09; PROTHROMBIN TIME 15.1 seconds (11.9-14.5)
[2022-03-25 12:23] LABS: PARTIAL THROMBOPLASTIN TIME 36.4 seconds (23.8-35.5)
[2022-03-25 12:35] LABS: ALANINE AMINOTRANSFERASE 7 IU/L (0-55); ALBUMIN 3.5 g/dL (3.5-5.0); ALBUMIN/GLOBULIN RATIO 0.9 (0.8-2.0); ALKALINE PHOSPHATASE 58 IU/L (40-150); ANION GAP 19.5 mmol/L (8-16); BLOOD UREA NITROGEN 55 mg/dL (7-26); BUN/CREATININE RATIO 15 (6-25); CALCIUM 9.1 mg/dL (8.4-10.2); CARBON DIOXIDE 23 mmol/L (22-29); CHLORIDE 104 mmol/L (98-107); CREATINE KINASE 44 IU/L (29-168); CREATININE, SERUM 3.65 mg/dL (0.57-1.11); GLUCOSE 97 mg/dL (74-118); POTASSIUM 4.5 mmol/L (3.5-5.1); SODIUM 142 mmol/L (136-145)
[2022-03-25 13:12] VITALS: BP 113/49
[2022-03-25 13:30] VITALS: BP 113/49
[2022-03-25] MEDS ORDERED: ACCRUFER30 MG (13:51)
[2022-03-25 14:06] VITALS: BP 113/49
[2022-03-25 14:08] VITALS: BP 113/49
[2022-03-25] MEDS ORDERED: NON-FORMULARY MEDICATION (Ondansetron Hcl* (Zofran*) 8 MG) PO PRN (15:45)
[2022-03-25] MEDS ORDERED: ONDANSETRON HCL 4 MG ORAL DISINTEGRATING TAB PO PRN (16:00)
[2022-03-25 16:20] VITALS: BP 110/47
[2022-03-25] MEDS ORDERED: SODIUM CHLORIDE 0.9% 250ML 250 ML ONE ×2 (16:40→20:51)
[2022-03-25] MEDS: METHOCARBAMOL 500 MG TAB PO SCH ×2 (16:41→21:00)
[2022-03-25] MEDS: GEMFIBROZIL 600 MG TAB PO SCH (17:00)
[2022-03-25] MEDS: AMLODIPINE BESYLATE 5 MG TAB PO SCH (17:00)
[2022-03-25] MEDS: HYDROMORPHONE 1MG/1ML INJ IV PRN ×2 (17:04→20:03)
[2022-03-25] MEDS: FUROSEMIDE 40 MG TAB PO SCH (17:41)
[2022-03-25] MEDS: APIXAB 2.5 MG TABLET PO SCH (17:41)
[2022-03-25 20:25] VITALS: BP 110/47
[2022-03-25] MEDS ORDERED: SODIUM CHLORIDE 0.9% 1000ML 1,000 ML ONE (20:52)
[2022-03-26] VITALS: BP 120/71
[2022-03-26] MEDS: HYDROMORPHONE 1MG/1ML INJ IV PRN (01:18)
[2022-03-26] MEDS ORDERED: LEVOTHYROXINE SODIUM 88 MCG TAB PO SCH (06:00)
[2022-03-26 06:19] LABS: BASOPHILS % 0.2 % (0.0-1.0); EOSINOPHILS # (AUTO) 0.2 (0.0-0.4); EOSINOPHILS % 2.5 % (0.0-6.0); HEMATOCRIT 27.1 % (34.2-44.1); HEMOGLOBIN 8.3 g/dL (12.0-16.0); LYMPHOCYTES # (AUTO) 0.3 (1.0-3.2); LYMPHOCYTES % 3.2 % (18.0-39.1); MEAN CORPUSCULAR HEMOGLOBIN 30.4 pg (28-32); MEAN CORPUSCULAR HGB CONC 30.6 g/dL (31-35); MEAN CORPUSCULAR VOLUME 99.3 fL (81-99); MONOCYTES # (AUTO) 0.7 (0.2-0.8); NEUTROPHILS # (AUTO) 7.8 (2.1-6.9); NEUTROPHILS % 85.5 % (38.7-80.0); PLATELET COUNT 296 x10e3/uL (140-360); RED BLOOD COUNT 2.73 x10e6/uL (3.6-5.1); RED CELL DISTRIBUTION WIDTH 16.6 % (11.7-14.4)
[2022-03-26 06:37] LABS: ALBUMIN 3.6 g/dL (3.5-5.0); ALBUMIN/GLOBULIN RATIO 0.9 (0.8-2.0); ANION GAP 18.7 mmol/L (8-16); CALCIUM 9.1 mg/dL (8.4-10.2); CREATININE, SERUM 3.69 mg/dL (0.57-1.11); POTASSIUM 4.7 mmol/L (3.5-5.1)
[2022-03-26] MEDS ORDERED: PANTOPRAZOLE SOD 40 MG TABEC PO SCH (07:30)
[2022-03-26 08:38] VITALS: BP 118/60
[2022-03-26 09:00] VITALS: BP 118/60
[2022-03-26] MEDS ORDERED: SODIUM BICARBONATE 650 MG TAB PO SCH (09:00)
[2022-03-26] MEDS ORDERED: AMIODARONE HCL 200 MG TAB PO SCH (09:00)
[2022-03-26] MEDS ORDERED: CALCITRIOL 0.25 MCG CAP PO SCH (09:00)
[2022-03-26] MEDS ORDERED: IRON-VITAMIN-MINERAL CAPSULE PO SCH (09:00)
[2022-03-26] MEDS ORDERED: NON-FORMULARY MEDICATION (Omeprazole Magnesium (Prilosec Otc) 20 MG) PO SCH (09:00)
[2022-03-26] MEDS ORDERED: ESTRADIOL 0.5 MG PO SCH (09:00)
[2022-03-26] MEDS: GEMFIBROZIL 600 MG TAB PO SCH (10:56)
[2022-03-26] MEDS: APIXAB 2.5 MG TABLET PO SCH (10:56)
[2022-03-26] MEDS: AMLODIPINE BESYLATE 5 MG TAB PO SCH (10:56)
[2022-03-26] MEDS: METHOCARBAMOL 500 MG TAB PO SCH ×2 (10:56→14:38)
[2022-03-26] MEDS: FUROSEMIDE 40 MG TAB PO SCH (10:57)
[2022-03-26 11:20] VITALS: BP 144/63
[2022-03-26] MEDS ORDERED: METHOCARBAMOL750 MG PO (14:08)
[2022-03-26] MEDS ORDERED: HEPARIN 500 UNITS/5ML MDV INJ ONE (14:30)
== END 2022-03-26 14:56 | disposition home or self-care (01) ==
LOC: ER 10:56 → INTOOBSV 11:03 → ERHOLD 11:03 → MED/SURG3 12:52
DX: I12.0 Hypertensive chronic kidney disease with stage 5 chronic kidney disease or end stage renal disease (principal); N18.6 End stage renal disease; D63.1 Anemia in chronic kidney disease; Z99.2 Dependence on renal dialysis; I48.91 Unspecified atrial fibrillation; E03.9 Hypothyroidism, unspecified; E66.9 Obesity, unspecified; Z90.49 Acquired absence of other specified parts of digestive tract; Z88.5 Allergy status to narcotic agent; Z88.0 Allergy status to penicillin; Z88.8 Allergy status to other drugs, medicaments and biological substances; Z68.41 Body mass index [BMI] 40.0-44.9, adult
CPT/HCPCS: 0223U; 36415 ×2; 36430; 71045; 80053 ×2; 82550; 82553; 84484; 85025 ×2; 85610; 85730; 86850; 86900; 86920; 99284; G0378 ×2; J1170 ×2; J2405; J7030; J7050; P9016 ×2; Q0162; S0164

== ENCOUNTER 2022-04-15 12:51 | Inpatient (IN) | payer MEDICARE, BC ==
[~2022-04-15] VITALS: Ht 167.6 cm; Wt 117.9 kg
[~2022-04-15 12:51] MED LIST changes: +ACCRUFER30 MG; +METHOCARBAMOL750 MG PO
[2022-04-15 14:11] LABS: BASOPHILS % 0.4 % (0.0-1.0); EOSINOPHILS # (AUTO) 0.3 (0.0-0.4); EOSINOPHILS % 3.7 % (0.0-6.0); LYMPHOCYTES % 13.3 % (18.0-39.1); MEAN CORPUSCULAR HEMOGLOBIN 29.5 pg (28-32); MEAN CORPUSCULAR HGB CONC 29.3 g/dL (31-35); MEAN CORPUSCULAR VOLUME 100.4 fL (81-99); MONOCYTES # (AUTO) 0.5 (0.2-0.8); MONOCYTES % 6.8 % (4.4-11.3); NEUTROPHILS # (AUTO) 5.9 (2.1-6.9); NEUTROPHILS % 75.5 % (38.7-80.0); PLATELET COUNT 324 x10e3/uL (140-360); RED BLOOD COUNT 2.24 x10e6/uL (3.6-5.1); RED CELL DISTRIBUTION WIDTH 14.7 % (11.7-14.4)
[2022-04-15 14:22] LABS: HEMATOCRIT 22.5 % (34.2-44.1); HEMOGLOBIN 6.6 g/dL (12.0-16.0)
[2022-04-15 14:27] LABS: ALBUMIN 3.5 g/dL (3.5-5.0); ALBUMIN/GLOBULIN RATIO 0.9 (0.8-2.0); ANION GAP 21.3 mmol/L (8-16); CREATININE, SERUM 4.45 mg/dL (0.57-1.11); POTASSIUM 4.3 mmol/L (3.5-5.1)
[2022-04-15] MEDS ORDERED: ONDANSETRON HCL INJ 2MG/ML 2ML 2 MG/ML VIAL IV PRN (14:30)
[2022-04-15] MEDS ORDERED: SODIUM CHLORIDE 0.9% 250ML 250 ML IV ONE (14:30)
[2022-04-15] MEDS ORDERED: SODIUM CHLORIDE FLUSH 10 ML SYR INJ PRN (14:30)
[2022-04-15 18:35] VITALS: BP 106/37
[2022-04-15 18:40] VITALS: BP 106/37
[2022-04-15 20:00] VITALS: BP 114/35
[2022-04-15] MEDS ORDERED: DIPHENHYDRAMINE HCL INJ 50 MG/ML VIAL IV PRN (20:00)
[2022-04-15 20:44] VITALS: BP 114/35
[2022-04-15] MEDS ORDERED: SODIUM CHLORIDE 0.9% 250ML 250 ML ONE (21:10)
[2022-04-15] MEDS: METHOCARBAMOL 500 MG TAB PO SCH (22:46)
[2022-04-16] VITALS (8 sets, daily range): BP systolic 98–139; BP diastolic 41–61
[2022-04-16] MEDS: LEVOTHYROXINE SODIUM 50 MCG TAB PO SCH (05:31)
[2022-04-16 05:34] LABS: BASOPHILS % 0.4 % (0.0-1.0); EOSINOPHILS # (AUTO) 0.3 (0.0-0.4); EOSINOPHILS % 3.8 % (0.0-6.0); LYMPHOCYTES # (AUTO) 0.9 (1.0-3.2); LYMPHOCYTES % 11.7 % (18.0-39.1); MEAN CORPUSCULAR HGB CONC 30.1 g/dL (31-35); MEAN CORPUSCULAR VOLUME 99.5 fL (81-99); MONOCYTES # (AUTO) 0.6 (0.2-0.8); MONOCYTES % 8.1 % (4.4-11.3); NEUTROPHILS # (AUTO) 5.5 (2.1-6.9); NEUTROPHILS % 75.7 % (38.7-80.0); PLATELET COUNT 273 x10e3/uL (140-360); RED BLOOD COUNT 2.17 x10e6/uL (3.6-5.1); RED CELL DISTRIBUTION WIDTH 15.4 % (11.7-14.4)
[2022-04-16 05:46] LABS: HEMATOCRIT 21.6 % (34.2-44.1); HEMOGLOBIN 6.5 g/dL (12.0-16.0)
[2022-04-16 05:50] LABS: ANION GAP 18.5 mmol/L (8-16); CALCIUM 8.5 mg/dL (8.4-10.2); CREATININE, SERUM 4.29 mg/dL (0.57-1.11); POTASSIUM 4.5 mmol/L (3.5-5.1)
[2022-04-16 06:25] LABS: FERRITIN 21.8 ng/mL (4.63-204.00); THYROID STIMULATING HORMONE 3.02 uIU/mL (0.350-4.940)
[2022-04-16] MEDS ORDERED: DIPHENHYDRAMINE HCL INJ 50 MG/ML VIAL IV ONE (06:45)
[2022-04-16 06:46] LABS: BASOPHILS % 0.3 % (0.0-1.0); EOSINOPHILS # (AUTO) 0.2 (0.0-0.4); EOSINOPHILS % 3.6 % (0.0-6.0); LYMPHOCYTES # (AUTO) 0.8 (1.0-3.2); LYMPHOCYTES % 11.9 % (18.0-39.1); MEAN CORPUSCULAR HEMOGLOBIN 29.4 pg (28-32); MEAN CORPUSCULAR HGB CONC 29.7 g/dL (31-35); MEAN CORPUSCULAR VOLUME 99.1 fL (81-99); MONOCYTES # (AUTO) 0.5 (0.2-0.8); MONOCYTES % 7.2 % (4.4-11.3); NEUTROPHILS # (AUTO) 5.1 (2.1-6.9); NEUTROPHILS % 76.5 % (38.7-80.0); PLATELET COUNT 280 x10e3/uL (140-360); RED BLOOD COUNT 2.31 x10e6/uL (3.6-5.1); RED CELL DISTRIBUTION WIDTH 15.5 % (11.7-14.4)
[2022-04-16 06:49] LABS: HEMOGLOBIN 6.8 g/dL (12.0-16.0)
[2022-04-16 06:50] LABS: HEMATOCRIT 22.9 % (34.2-44.1)
[2022-04-16] MEDS: GEMFIBROZIL 600 MG TAB PO SCH ×2 (10:11→17:48)
[2022-04-16] MEDS: CALCITRIOL 0.25 MCG CAP PO SCH (10:11)
[2022-04-16] MEDS: AMLODIPINE BESYLATE 5 MG TAB PO SCH ×2 (10:11→17:49)
[2022-04-16] MEDS: SODIUM BICARBONATE 650 MG TAB PO SCH (10:11)
[2022-04-16] MEDS: METHOCARBAMOL 500 MG TAB PO SCH ×3 (10:12→20:06)
[2022-04-16] MEDS: FUROSEMIDE 20 MG TAB PO SCH ×2 (10:12→17:49)
[2022-04-16] MEDS: AMIODARONE HCL 200 MG TAB PO SCH (10:12)
[2022-04-16] MEDS ORDERED: DIPHENHYDRAMINE HCL INJ 50 MG/ML VIAL IV PRN (10:30)
[2022-04-16] MEDS: FLUTICASONE PROPIONATE NASAL SPRAY NS SCH ×2 (10:30→18:33)
[2022-04-16] MEDS ORDERED: SODIUM CHLORIDE 0.9% 250ML 250 ML ONE (10:57)
[2022-04-16] MEDS ORDERED: INFLUENZA VIRUS VAC SPLIT INJ 0.5 ML SYR IM ONE (15:30)
[2022-04-16] MEDS ORDERED: PNEUMOCOCCAL VACCINE POLYVALENT 23 MCG/0.5 ML VIAL IM ONE (15:30)
[2022-04-16] MEDS ORDERED: EPOETIN ALFA-EPBX 10,000 UNIT/ML VIAL SC ONE (16:30)
[2022-04-16 23:53] LABS: HEMATOCRIT 25.4 % (34.2-44.1); HEMOGLOBIN 7.8 g/dL (12.0-16.0)
[2022-04-17] VITALS: BP 138/56
[2022-04-17 04:00] VITALS: BP 145/66
[2022-04-17] MEDS: LEVOTHYROXINE SODIUM 50 MCG TAB PO SCH (05:34)
[2022-04-17 06:09] LABS: BASOPHILS % 0.4 % (0.0-1.0); EOSINOPHILS # (AUTO) 0.2 (0.0-0.4); EOSINOPHILS % 1.9 % (0.0-6.0); HEMATOCRIT 25.9 % (34.2-44.1); LYMPHOCYTES # (AUTO) 0.5 (1.0-3.2); LYMPHOCYTES % 5.1 % (18.0-39.1); MEAN CORPUSCULAR HGB CONC 30.9 g/dL (31-35); MONOCYTES # (AUTO) 0.9 (0.2-0.8); MONOCYTES % 8.3 % (4.4-11.3); PLATELET COUNT 267 x10e3/uL (140-360); RED BLOOD COUNT 2.67 x10e6/uL (3.6-5.1); RED CELL DISTRIBUTION WIDTH 15.9 % (11.7-14.4)
[2022-04-17 09:00] VITALS: BP 145/66
[2022-04-17] MEDS: AMLODIPINE BESYLATE 5 MG TAB PO SCH ×2 (09:00→09:35)
[2022-04-17] MEDS: METHOCARBAMOL 500 MG TAB PO SCH ×2 (09:00→09:35)
[2022-04-17] MEDS: GEMFIBROZIL 600 MG TAB PO SCH ×2 (09:00→09:35)
[2022-04-17] MEDS: FUROSEMIDE 20 MG TAB PO SCH ×2 (09:00→09:36)
[2022-04-17 09:06] VITALS: BP 135/56
[2022-04-17] MEDS: CALCITRIOL 0.25 MCG CAP PO SCH (09:35)
[2022-04-17] MEDS: SODIUM BICARBONATE 650 MG TAB PO SCH (09:35)
[2022-04-17] MEDS: FLUTICASONE PROPIONATE NASAL SPRAY NS SCH (09:35)
[2022-04-17] MEDS: AMIODARONE HCL 200 MG TAB PO SCH (09:35)
[2022-04-17] MEDS ORDERED: HEPARIN 500 UNITS/5ML MDV INJ ONE (09:45)
== END 2022-04-17 10:27 | disposition home or self-care (01) | DRG 812 ==
LOC: ER 12:58 → ERHOLD 14:28 → MED/SURG 17:28 → OBSVTOIN 04-16 14:16
PROVIDERS: ADMIT Internal Medicine; ATTEND Internal Medicine
PROC: 30243N1 Transfusion of Nonautologous Red Blood Cells into Central Vein, Percutaneous Approach (ICD-10-PCS; principal; 2022-04-16)
DX: D64.9 Anemia, unspecified (principal); I12.0 Hypertensive chronic kidney disease with stage 5 chronic kidney disease or end stage renal disease; Z68.41 Body mass index [BMI] 40.0-44.9, adult; N18.5 Chronic kidney disease, stage 5; Z99.2 Dependence on renal dialysis; Z79.85 Long-term (current) use of injectable non-insulin antidiabetic drugs; I48.0 Paroxysmal atrial fibrillation; E66.01 Morbid (severe) obesity due to excess calories; Z88.5 Allergy status to narcotic agent; Z88.0 Allergy status to penicillin; Z88.8 Allergy status to other drugs, medicaments and biological substances
CPT/HCPCS: 36415; 80048; 80053; 82607; 82728; 82746; 83540; 84443; 84466; 85014; 85018; 85025; 85045; 86850; 86900; 86920; 90732; 99284; G0378; J1200; J2405; J7050; P9016

== ENCOUNTER 2022-05-05 10:11 | Inpatient (IN) | payer MEDICARE, BC ==
[~2022-05-05] VITALS: Ht 167.6 cm; Wt 120.9 kg
[2022-05-05] MEDS ORDERED: SODIUM CHLORIDE FLUSH 10 ML SYR IV PRN (10:33)
[2022-05-05 10:48] LABS: BASOPHILS % 0.4 % (0.0-1.0); EOSINOPHILS # (AUTO) 0.4 (0.0-0.4); LYMPHOCYTES # (AUTO) 0.9 (1.0-3.2); LYMPHOCYTES % 12.2 % (18.0-39.1); MEAN CORPUSCULAR HEMOGLOBIN 29.6 pg (28-32); MEAN CORPUSCULAR HGB CONC 29.6 g/dL (31-35); MONOCYTES # (AUTO) 0.6 (0.2-0.8); MONOCYTES % 7.8 % (4.4-11.3); NEUTROPHILS # (AUTO) 5.2 (2.1-6.9); NEUTROPHILS % 74.2 % (38.7-80.0); PLATELET COUNT 306 x10e3/uL (140-360); RED BLOOD COUNT 1.89 x10e6/uL (3.6-5.1); RED CELL DISTRIBUTION WIDTH 15.9 % (11.7-14.4)
[2022-05-05 11:02] LABS: INR 1.19; PROTHROMBIN TIME 16.2 seconds (11.9-14.5)
[2022-05-05 11:09] LABS: ALBUMIN 3.4 g/dL (3.5-5.0); ALBUMIN/GLOBULIN RATIO 0.9 (0.8-2.0); ANION GAP 18.9 mmol/L (8-16); CREATININE, SERUM 4.09 mg/dL (0.57-1.11); POTASSIUM 3.9 mmol/L (3.5-5.1)
[2022-05-05 11:10] LABS: HEMATOCRIT 18.9 % (34.2-44.1); HEMOGLOBIN 5.6 g/dL (12.0-16.0)
[2022-05-05 11:11] LABS: PARTIAL THROMBOPLASTIN TIME 104.6 seconds (23.8-35.5)
[2022-05-05] MEDS ORDERED: SODIUM CHLORIDE 0.9% 250ML 250 ML IV ONE ×2 (11:30→23:45)
[2022-05-05] MEDS ORDERED: FAMOTIDINE 20 MG/2 ML VIAL IV STA (12:27)
[2022-05-05] MEDS ORDERED: ACETAMINOPHEN 325 MG TAB PO ONE (12:30)
[2022-05-05] MEDS ORDERED: DIPHENHYDRAMINE HCL INJ 50 MG/ML VIAL IV ONE (12:30)
[2022-05-05] MEDS ORDERED: ONDANSETRON HCL INJ 2MG/ML 2ML 2 MG/ML VIAL IV PRN (13:00)
[2022-05-05 13:50] VITALS: BP 125/52
[2022-05-05 14:02] VITALS: BP 125/52
[2022-05-05 14:10] VITALS: BP 125/52
[2022-05-05] MEDS ORDERED: ACCRUFER30 MG PO (14:21)
[2022-05-05] MEDS ORDERED: PROCRIT SQ (14:21)
[2022-05-05] MEDS ORDERED: CALCIUM ACETAT667 M1 PO (14:21)
[2022-05-05] MEDS ORDERED: LOSARTAN POTASS25 MG PO (14:21)
[2022-05-05] MEDS ORDERED: DIALYVITE TABL1 EACH PO (14:21)
[2022-05-05 16:05] VITALS: BP 113/55
[2022-05-05] MEDS ORDERED: SODIUM CHLORIDE 0.9% 250ML 250 ML ONE (17:00)
[2022-05-05 20:12] VITALS: BP 118/46
[2022-05-05 23:26] LABS: BASOPHILS % 0.5 % (0.0-1.0); EOSINOPHILS # (AUTO) 0.3 (0.0-0.4); EOSINOPHILS % 4.7 % (0.0-6.0); LYMPHOCYTES # (AUTO) 1.1 (1.0-3.2); LYMPHOCYTES % 16.9 % (18.0-39.1); MEAN CORPUSCULAR HEMOGLOBIN 29.2 pg (28-32); MEAN CORPUSCULAR HGB CONC 29.7 g/dL (31-35); MEAN CORPUSCULAR VOLUME 98.2 fL (81-99); MONOCYTES # (AUTO) 0.6 (0.2-0.8); MONOCYTES % 9.2 % (4.4-11.3); NEUTROPHILS # (AUTO) 4.5 (2.1-6.9); NEUTROPHILS % 68.5 % (38.7-80.0); PLATELET COUNT 274 x10e3/uL (140-360); RED BLOOD COUNT 2.26 x10e6/uL (3.6-5.1); RED CELL DISTRIBUTION WIDTH 17.2 % (11.7-14.4)
[2022-05-05 23:31] LABS: HEMATOCRIT 22.2 % (34.2-44.1)
[2022-05-05 23:32] LABS: HEMOGLOBIN 6.6 g/dL (12.0-16.0)
[2022-05-05] MEDS ORDERED: FUROSEMIDE INJ 10 MG/ML 2 ML VIAL IV PRN (23:45)
[2022-05-06] VITALS (8 sets, daily range): BP systolic 117–131; BP diastolic 45–64
[2022-05-06 10:32] LABS: HEMATOCRIT 26.3 % (34.2-44.1); HEMOGLOBIN 8.2 g/dL (12.0-16.0); MEAN CORPUSCULAR HEMOGLOBIN 29.8 pg (28-32); MEAN CORPUSCULAR HGB CONC 31.2 g/dL (31-35); MEAN CORPUSCULAR VOLUME 95.6 fL (81-99); PLATELET COUNT 263 x10e3/uL (140-360); RED BLOOD COUNT 2.75 x10e6/uL (3.6-5.1); RED CELL DISTRIBUTION WIDTH 16.9 % (11.7-14.4)
[2022-05-06 12:45] LABS: EOSINOPHILS % (MANUAL) 4 % (0-7); LYMPHOCYTES % (MANUAL) 9 % (19-48); MONOCYTES % (MANUAL) 8 % (3.4-9.0); NEUTROPHILS % (MANUAL) 77 % (40-74); PLATELET ESTIMATE ADEQUATE; PLATELET MORPHOLOGY COMMENT NORMAL; RBC MORPHOLOGY COMMENT NORMAL
[2022-05-06] MEDS ORDERED: EPOETIN ALFA-EPBX 10,000 UNIT/ML VIAL SC ONE (14:15)
[2022-05-06 14:50] LABS: HEMATOCRIT 25.8 % (34.2-44.1); MEAN CORPUSCULAR HEMOGLOBIN 29.6 pg (28-32); MEAN CORPUSCULAR VOLUME 95.6 fL (81-99); PLATELET COUNT 270 x10e3/uL (140-360); RED CELL DISTRIBUTION WIDTH 16.9 % (11.7-14.4)
[2022-05-06] MEDS: SODIUM FERRIC GLUCONATE COMPLX 125 MG in SODIUM CHLORIDE 0.9% 100 ML IV SCH (15:08)
[2022-05-06 15:13] LABS: ANION GAP 19.2 mmol/L (8-16); CALCIUM 9.3 mg/dL (8.4-10.2); CREATININE, SERUM 4.12 mg/dL (0.57-1.11); POTASSIUM 4.2 mmol/L (3.5-5.1)
[2022-05-06 15:47] LABS: FERRITIN 21.88 ng/mL (4.63-204.00)
[2022-05-06] MEDS ORDERED: APIXAB 2.5 MG TABLET PO SCH (17:00)
[2022-05-06] MEDS: AMLODIPINE BESYLATE 5 MG TAB PO SCH (18:06)
[2022-05-06] MEDS: FUROSEMIDE 40 MG TAB PO SCH (18:06)
[2022-05-06] MEDS: GEMFIBROZIL 600 MG TAB PO SCH (18:06)
[2022-05-06 18:16] LABS: LYMPHOCYTES % (MANUAL) 13 % (19-48); MONOCYTES % (MANUAL) 8 % (3.4-9.0); NEUTROPHILS % (MANUAL) 77 % (40-74); PLATELET ESTIMATE ADEQUATE; PLATELET MORPHOLOGY COMMENT NORMAL; RBC MORPHOLOGY COMMENT NORMAL
[2022-05-06] MEDS: TEMAZEPAM 15 MG CAP PO PRN (20:19)
[2022-05-07] VITALS (8 sets, daily range): BP systolic 111–129; BP diastolic 50–65
[2022-05-07] MEDS: LEVOTHYROXINE SODIUM 88 MCG TAB PO SCH (05:15)
[2022-05-07 06:13] LABS: BASOPHILS % 0.6 % (0.0-1.0); EOSINOPHILS # (AUTO) 0.3 (0.0-0.4); EOSINOPHILS % 5.5 % (0.0-6.0); HEMATOCRIT 26.2 % (34.2-44.1); HEMOGLOBIN 8.1 g/dL (12.0-16.0); LYMPHOCYTES # (AUTO) 0.8 (1.0-3.2); LYMPHOCYTES % 12.6 % (18.0-39.1); MEAN CORPUSCULAR HEMOGLOBIN 30.3 pg (28-32); MEAN CORPUSCULAR HGB CONC 30.9 g/dL (31-35); MEAN CORPUSCULAR VOLUME 98.1 fL (81-99); MONOCYTES # (AUTO) 0.7 (0.2-0.8); MONOCYTES % 10.8 % (4.4-11.3); NEUTROPHILS # (AUTO) 4.3 (2.1-6.9); PLATELET COUNT 261 x10e3/uL (140-360); RED BLOOD COUNT 2.67 x10e6/uL (3.6-5.1); RED CELL DISTRIBUTION WIDTH 16.9 % (11.7-14.4)
[2022-05-07] MEDS ORDERED: LOSARTAN POTASSIUM 25 MG TAB PO SCH (09:00)
[2022-05-07] MEDS: CALCITRIOL 0.25 MCG CAP PO SCH (09:37)
[2022-05-07] MEDS: FUROSEMIDE 40 MG TAB PO SCH ×2 (09:37→16:14)
[2022-05-07] MEDS: GEMFIBROZIL 600 MG TAB PO SCH ×2 (09:37→16:14)
[2022-05-07] MEDS: AMIODARONE HCL 200 MG TAB PO SCH (09:37)
[2022-05-07] MEDS: SODIUM FERRIC GLUCONATE COMPLX 125 MG in SODIUM CHLORIDE 0.9% 100 ML IV SCH (09:37)
[2022-05-07] MEDS: SODIUM BICARBONATE 650 MG TAB PO SCH (09:37)
[2022-05-07] MEDS: AMLODIPINE BESYLATE 5 MG TAB PO SCH ×2 (09:37→16:14)
[2022-05-07] MEDS ORDERED: ONDANSETRON HCL 4 MG ORAL DISINTEGRATING TAB PO PRN (11:15)
[2022-05-07] MEDS ORDERED: MIDAZOLAM HCL 2 MG/2 ML VIAL ONE (14:40)
[2022-05-07] MEDS ORDERED: FENTANYL CITRATE/PF 100MCG/2 ML INJ ONE (14:40)
[2022-05-07] MEDS ORDERED: SODIUM CHLORIDE 0.9% 250ML 250 ML ONE (14:40)
[2022-05-07] MEDS: TEMAZEPAM 15 MG CAP PO PRN (21:47)
[2022-05-08] VITALS (8 sets, daily range): BP systolic 100–125; BP diastolic 44–58
[2022-05-08] MEDS: LEVOTHYROXINE SODIUM 88 MCG TAB PO SCH (05:42)
[2022-05-08 06:28] LABS: BASOPHILS # (AUTO) 0.1 (0.0-0.1); BASOPHILS % 0.7 % (0.0-1.0); EOSINOPHILS # (AUTO) 0.4 (0.0-0.4); EOSINOPHILS % 5.6 % (0.0-6.0); LYMPHOCYTES # (AUTO) 0.8 (1.0-3.2); LYMPHOCYTES % 11.9 % (18.0-39.1); MEAN CORPUSCULAR HEMOGLOBIN 30.7 pg (28-32); MEAN CORPUSCULAR HGB CONC 30.8 g/dL (31-35); MEAN CORPUSCULAR VOLUME 99.6 fL (81-99); MONOCYTES # (AUTO) 0.7 (0.2-0.8); MONOCYTES % 10.4 % (4.4-11.3); NEUTROPHILS # (AUTO) 4.8 (2.1-6.9); PLATELET COUNT 259 x10e3/uL (140-360); RED BLOOD COUNT 2.61 x10e6/uL (3.6-5.1); RED CELL DISTRIBUTION WIDTH 16.8 % (11.7-14.4)
[2022-05-08 06:43] LABS: ANION GAP 18.1 mmol/L (8-16); CALCIUM 8.9 mg/dL (8.4-10.2); CREATININE, SERUM 3.98 mg/dL (0.57-1.11); POTASSIUM 4.1 mmol/L (3.5-5.1)
[2022-05-08] MEDS: FUROSEMIDE 40 MG TAB PO SCH ×2 (08:43→17:00)
[2022-05-08] MEDS: CALCITRIOL 0.25 MCG CAP PO SCH (08:43)
[2022-05-08] MEDS: AMLODIPINE BESYLATE 5 MG TAB PO SCH ×2 (08:43→18:18)
[2022-05-08] MEDS: AMIODARONE HCL 200 MG TAB PO SCH (08:43)
[2022-05-08] MEDS: GEMFIBROZIL 600 MG TAB PO SCH ×2 (08:43→18:18)
[2022-05-08] MEDS: SODIUM BICARBONATE 650 MG TAB PO SCH (08:44)
[2022-05-08] MEDS: TEMAZEPAM 15 MG CAP PO PRN (20:46)
[2022-05-09] VITALS (8 sets, daily range): BP systolic 107–130; BP diastolic 44–59
[2022-05-09] MEDS: LEVOTHYROXINE SODIUM 88 MCG TAB PO SCH (06:09)
[2022-05-09 06:38] LABS: ANION GAP 19.1 mmol/L (8-16); CALCIUM 8.7 mg/dL (8.4-10.2); CREATININE, SERUM 3.74 mg/dL (0.57-1.11); POTASSIUM 4.1 mmol/L (3.5-5.1)
[2022-05-09] MEDS: AMIODARONE HCL 200 MG TAB PO SCH (08:54)
[2022-05-09] MEDS: GEMFIBROZIL 600 MG TAB PO SCH ×2 (08:54→17:43)
[2022-05-09] MEDS: CALCITRIOL 0.25 MCG CAP PO SCH (08:54)
[2022-05-09] MEDS: SODIUM BICARBONATE 650 MG TAB PO SCH (08:55)
[2022-05-09] MEDS: FUROSEMIDE 40 MG TAB PO SCH ×2 (08:55→17:43)
[2022-05-09] MEDS: AMLODIPINE BESYLATE 5 MG TAB PO SCH ×2 (08:55→17:43)
[2022-05-09 09:39] LABS: BASOPHILS % 0.6 % (0.0-1.0); EOSINOPHILS # (AUTO) 0.4 (0.0-0.4); EOSINOPHILS % 5.9 % (0.0-6.0); HEMATOCRIT 25.4 % (34.2-44.1); HEMOGLOBIN 7.5 g/dL (12.0-16.0); LYMPHOCYTES # (AUTO) 0.8 (1.0-3.2); LYMPHOCYTES % 13.3 % (18.0-39.1); MEAN CORPUSCULAR HGB CONC 29.5 g/dL (31-35); MEAN CORPUSCULAR VOLUME 101.6 fL (81-99); MONOCYTES # (AUTO) 0.7 (0.2-0.8); MONOCYTES % 10.5 % (4.4-11.3); NEUTROPHILS # (AUTO) 4.4 (2.1-6.9); NEUTROPHILS % 69.4 % (38.7-80.0); PLATELET COUNT 249 x10e3/uL (140-360); RED CELL DISTRIBUTION WIDTH 16.4 % (11.7-14.4)
[2022-05-09] MEDS ORDERED: SODIUM FERRIC GLUCONATE COMPLX 125 MG in SODIUM CHLORIDE 0.9% 100 ML IV ONE (10:00)
[2022-05-09] MEDS: METHOCARBAMOL 500 MG TAB PO PRN (17:46)
[2022-05-09] MEDS: TEMAZEPAM 15 MG CAP PO PRN (20:56)
[2022-05-10] VITALS (8 sets, daily range): BP systolic 99–124; BP diastolic 43–58
[2022-05-10] MEDS: METHOCARBAMOL 500 MG TAB PO PRN ×3 (02:16→17:30)
[2022-05-10] MEDS: LEVOTHYROXINE SODIUM 88 MCG TAB PO SCH (06:08)
[2022-05-10] MEDS: ACETAMINOPHEN 325 MG TAB PO PRN ×2 (06:38→12:18)
[2022-05-10 06:43] LABS: BASOPHILS % 0.5 % (0.0-1.0); EOSINOPHILS # (AUTO) 0.4 (0.0-0.4); EOSINOPHILS % 4.9 % (0.0-6.0); HEMATOCRIT 26.6 % (34.2-44.1); HEMOGLOBIN 8.4 g/dL (12.0-16.0); LYMPHOCYTES # (AUTO) 0.6 (1.0-3.2); LYMPHOCYTES % 8.6 % (18.0-39.1); MEAN CORPUSCULAR HEMOGLOBIN 30.3 pg (28-32); MEAN CORPUSCULAR HGB CONC 31.6 g/dL (31-35); MONOCYTES # (AUTO) 0.6 (0.2-0.8); MONOCYTES % 8.6 % (4.4-11.3); NEUTROPHILS # (AUTO) 5.7 (2.1-6.9); NEUTROPHILS % 76.9 % (38.7-80.0); PLATELET COUNT 258 x10e3/uL (140-360); RED BLOOD COUNT 2.77 x10e6/uL (3.6-5.1)
[2022-05-10 06:52] LABS: CALCIUM 9.1 mg/dL (8.4-10.2); CREATININE, SERUM 3.67 mg/dL (0.57-1.11)
[2022-05-10] MEDS: FUROSEMIDE 40 MG TAB PO SCH ×2 (10:32→17:00)
[2022-05-10] MEDS: AMIODARONE HCL 200 MG TAB PO SCH (10:32)
[2022-05-10] MEDS: AMLODIPINE BESYLATE 5 MG TAB PO SCH ×2 (10:32→17:00)
[2022-05-10] MEDS: SODIUM BICARBONATE 650 MG TAB PO SCH (10:32)
[2022-05-10] MEDS: GEMFIBROZIL 600 MG TAB PO SCH ×2 (10:32→17:30)
[2022-05-10] MEDS: CALCITRIOL 0.25 MCG CAP PO SCH (10:32)
[2022-05-10] MEDS: TRAMADOL HCL 50 MG TAB PO PRN (17:30)
[2022-05-10] MEDS: APIXAB 2.5 MG TABLET PO SCH (17:30)
[2022-05-11] VITALS (8 sets, daily range): BP systolic 114–149; BP diastolic 47–75
[2022-05-11] MEDS: METHOCARBAMOL 500 MG TAB PO PRN ×3 (00:10→18:02)
[2022-05-11] MEDS: TRAMADOL HCL 50 MG TAB PO PRN (01:10)
[2022-05-11] MEDS: TEMAZEPAM 15 MG CAP PO PRN (01:12)
[2022-05-11] MEDS: LEVOTHYROXINE SODIUM 88 MCG TAB PO SCH (06:07)
[2022-05-11] MEDS: ACETAMINOPHEN/CODEINE 300MG - 30MG TAB PO PRN ×2 (06:10→18:02)
[2022-05-11] MEDS: AMLODIPINE BESYLATE 5 MG TAB PO SCH ×2 (08:14→17:54)
[2022-05-11] MEDS: FUROSEMIDE 40 MG TAB PO SCH ×2 (08:15→17:54)
[2022-05-11] MEDS: GEMFIBROZIL 600 MG TAB PO SCH ×2 (08:15→17:54)
[2022-05-11] MEDS: CALCITRIOL 0.25 MCG CAP PO SCH (08:15)
[2022-05-11] MEDS: LIDOCAINE 4% PATCH TP SCH (08:15)
[2022-05-11] MEDS: AMIODARONE HCL 200 MG TAB PO SCH (08:15)
[2022-05-11] MEDS: SODIUM BICARBONATE 650 MG TAB PO SCH (08:15)
[2022-05-11] MEDS: APIXAB 2.5 MG TABLET PO SCH ×2 (08:15→17:54)
[2022-05-11] MEDS ORDERED: DIPHENOXYLATE/ATROPINE TAB PO PRN (17:30)
[2022-05-12] MEDS: TEMAZEPAM 15 MG CAP PO PRN (00:17)
[2022-05-12] MEDS: ACETAMINOPHEN/CODEINE 300MG - 30MG TAB PO PRN ×2 (00:18→06:23)
[2022-05-12 00:25] VITALS: BP 124/46
[2022-05-12 05:29] VITALS: BP 121/49
[2022-05-12 05:51] LABS: BASOPHILS % 0.5 % (0.0-1.0); EOSINOPHILS # (AUTO) 0.4 (0.0-0.4); EOSINOPHILS % 5.7 % (0.0-6.0); HEMATOCRIT 26.7 % (34.2-44.1); HEMOGLOBIN 8.3 g/dL (12.0-16.0); LYMPHOCYTES # (AUTO) 0.8 (1.0-3.2); LYMPHOCYTES % 10.6 % (18.0-39.1); MEAN CORPUSCULAR HGB CONC 31.1 g/dL (31-35); MEAN CORPUSCULAR VOLUME 96.4 fL (81-99); MONOCYTES # (AUTO) 0.7 (0.2-0.8); MONOCYTES % 9.4 % (4.4-11.3); NEUTROPHILS # (AUTO) 5.7 (2.1-6.9); NEUTROPHILS % 73.4 % (38.7-80.0); PLATELET COUNT 302 x10e3/uL (140-360); RED BLOOD COUNT 2.77 x10e6/uL (3.6-5.1); RED CELL DISTRIBUTION WIDTH 16.5 % (11.7-14.4)
[2022-05-12 06:21] LABS: CALCIUM 9.5 mg/dL (8.4-10.2); CREATININE, SERUM 4.02 mg/dL (0.57-1.11)
[2022-05-12] MEDS: LEVOTHYROXINE SODIUM 88 MCG TAB PO SCH (06:23)
[2022-05-12] MEDS: AMIODARONE HCL 200 MG TAB PO SCH (07:40)
[2022-05-12] MEDS: GEMFIBROZIL 600 MG TAB PO SCH (07:40)
[2022-05-12] MEDS: SODIUM BICARBONATE 650 MG TAB PO SCH (07:40)
[2022-05-12] MEDS: AMLODIPINE BESYLATE 5 MG TAB PO SCH (07:40)
[2022-05-12] MEDS: APIXAB 2.5 MG TABLET PO SCH (07:40)
[2022-05-12] MEDS: LIDOCAINE 4% PATCH TP SCH (07:40)
[2022-05-12] MEDS: FUROSEMIDE 40 MG TAB PO SCH (07:40)
[2022-05-12] MEDS: CALCITRIOL 0.25 MCG CAP PO SCH (07:40)
[2022-05-12 08:22] VITALS: BP 130/59
[2022-05-12 09:28] VITALS: BP 130/59
[2022-05-12] MEDS ORDERED: FENTANYL 50 MCG/HR PATCH TOP SCH (11:00)
[2022-05-12] MEDS ORDERED: FENTANYL CITRATE/PF 100MCG/2 ML INJ IV ONE (12:00)
[2022-05-12 12:29] VITALS: BP 131/68
[2022-05-12] MEDS: METHOCARBAMOL 500 MG TAB PO PRN (13:55)
[2022-05-12] MEDS ORDERED: SODIUM FERRIC GLUCONATE COMPLX 125 MG in SODIUM CHLORIDE 0.9% 100 ML IV SCH (17:00)
== END 2022-05-12 15:58 | DRG 812 ==
LOC: ER 10:16 → ERHOLD 12:58 → MED/SURG3 13:47 → OBSVTOIN 05-06 16:20
PROC: 30233N1 Transfusion of Nonautologous Red Blood Cells into Peripheral Vein, Percutaneous Approach (ICD-10-PCS; 2022-05-05)
PROC: 079T3ZX Drainage of Bone Marrow, Percutaneous Approach, Diagnostic (ICD-10-PCS; principal; 2022-05-06)
PROC: 07DR3ZX Extraction of Iliac Bone Marrow, Percutaneous Approach, Diagnostic (ICD-10-PCS; 2022-05-06)
DX: D46.4 Refractory anemia, unspecified (principal); N18.5 Chronic kidney disease, stage 5; Z68.41 Body mass index [BMI] 40.0-44.9, adult; I48.20 Chronic atrial fibrillation, unspecified; E87.20 Acidosis, unspecified; E03.9 Hypothyroidism, unspecified; D63.1 Anemia in chronic kidney disease; E66.01 Morbid (severe) obesity due to excess calories; N20.0 Calculus of kidney; Z90.49 Acquired absence of other specified parts of digestive tract; Z88.5 Allergy status to narcotic agent; Z88.0 Allergy status to penicillin; Z88.8 Allergy status to other drugs, medicaments and biological substances; Z85.79 Personal history of other malignant neoplasms of lymphoid, hematopoietic and related tissues; Z79.01 Long term (current) use of anticoagulants; R32 Unspecified urinary incontinence
CPT/HCPCS: 0223U; 36415; 38222; 71045; 74470; 77012; 80048; 80053; 82607; 82728; 82746; 83010; 83540; 83880; 84165; 84466; 84484; 85007; 85025; 85027; 85045; 85610; 85730; 86850; 86900; 86920; 93005; 94799; 99284; G0378; J1200; J1940; J2250; J2405; J2916; J3010; J7050; P9016

== ENCOUNTER 2022-08-14 16:09 | Inpatient (IN) | payer MEDICARE, BC ==
[~2022-08-14] VITALS: Ht 167.6 cm; Wt 120.7 kg
[~2022-08-14 16:09] MED LIST changes: +ACCRUFER30 MG PO; +CALCIUM ACETAT667 M1 PO; +DIALYVITE TABL1 EACH PO; +LOSARTAN POTASS25 MG PO; +PROCRIT SQ
[2022-08-14] MEDS ORDERED: SODIUM CHLORIDE 0.9% 500ML 500 ML IV ONE (17:15)
[2022-08-14 17:30] LABS: BASOPHILS % 0.2 % (0.0-1.0); EOSINOPHILS % 0.2 % (0.0-6.0); HEMATOCRIT 29.8 % (34.2-44.1); LYMPHOCYTES # (AUTO) 0.9 (1.0-3.2); MEAN CORPUSCULAR HEMOGLOBIN 28.6 pg (28-32); MEAN CORPUSCULAR HGB CONC 30.2 g/dL (31-35); MEAN CORPUSCULAR VOLUME 94.6 fL (81-99); MONOCYTES # (AUTO) 0.8 (0.2-0.8); MONOCYTES % 4.9 % (4.4-11.3); NEUTROPHILS # (AUTO) 15.3 (2.1-6.9); NEUTROPHILS % 88.6 % (38.7-80.0); PLATELET COUNT 317 x10e3/uL (140-360); RED BLOOD COUNT 3.15 x10e6/uL (3.6-5.1); RED CELL DISTRIBUTION WIDTH 19.5 % (11.7-14.4)
[2022-08-14 17:33] LABS: INR 1.12; PROTHROMBIN TIME 14.6 seconds (11.9-14.5)
[2022-08-14 17:34] LABS: PARTIAL THROMBOPLASTIN TIME 37.2 seconds (23.8-35.5)
[2022-08-14 17:41] LABS: ALANINE AMINOTRANSFERASE 7 IU/L (0-55); ALBUMIN 2.4 g/dL (3.5-5.0); ALBUMIN/GLOBULIN RATIO 0.5 (0.8-2.0); ALKALINE PHOSPHATASE 74 IU/L (40-150); BLOOD UREA NITROGEN 12 mg/dL (7-26); BUN/CREATININE RATIO 4 (6-25); CALCIUM 8.6 mg/dL (8.4-10.2); CARBON DIOXIDE 26 mmol/L (22-29); CHLORIDE 98 mmol/L (98-107); CREATININE, SERUM 2.97 mg/dL (0.57-1.11); GLUCOSE 121 mg/dL (74-118); MAGNESIUM 1.7 MG/DL (1.3-2.1); SODIUM 136 mmol/L (136-145)
[2022-08-14 17:42] LABS: CREATINE KINASE < 7 IU/L (29-168)
[2022-08-14] MEDS ORDERED: Vancomycin IV 1 GM in SODIUM CHLORIDE 0.9% 250ML 250 ML IV ONE (18:15)
[2022-08-14 18:22] LABS: CLARITY,URINE CLOUDY (CLEAR); COLOR,URINE YELLOW (YELLOW); KETONES,URINE 1+ (NEGATIVE); LEUKOCYTE ESTERASE ,URINE LARGE (NEGATIVE); NITRITE,URINE NEGATIVE (NEGATIVE); PROTEIN,URINE DIPSTICK >=300 (NEGATIVE); URINE UROBILINOGEN 0.2 mg/dL (0.2 - 1)
[2022-08-14 18:45] LABS: BACTERIA,URINE MANY /HPF; EPITHELIAL CELLS,URINE MODERATE /LPF; RBC,URINE 21-50 /HPF (0-5); WBC,URINE (MAN) >50 /HPF (0-5)
[2022-08-14] MEDS ORDERED: SODIUM CHLORIDE 0.9% 500ML 500 ML IV STA (19:33)
[2022-08-14] MEDS ORDERED: SODIUM CHLORIDE 0.9% 500ML 500 ML ONE (19:51)
[2022-08-14 22:30] VITALS: BP 102/33
[2022-08-15] VITALS (9 sets, daily range): BP systolic 99–111; BP diastolic 31–38
[2022-08-15 06:44] LABS: BASOPHILS % 0.4 % (0.0-1.0); EOSINOPHILS # (AUTO) 0.1 (0.0-0.4); EOSINOPHILS % 0.9 % (0.0-6.0); HEMATOCRIT 23.8 % (34.2-44.1); HEMOGLOBIN 7.4 g/dL (12.0-16.0); LYMPHOCYTES # (AUTO) 1.1 (1.0-3.2); LYMPHOCYTES % 10.9 % (18.0-39.1); MEAN CORPUSCULAR HEMOGLOBIN 29.2 pg (28-32); MEAN CORPUSCULAR HGB CONC 31.1 g/dL (31-35); MEAN CORPUSCULAR VOLUME 94.1 fL (81-99); MONOCYTES # (AUTO) 0.7 (0.2-0.8); MONOCYTES % 7.6 % (4.4-11.3); NEUTROPHILS # (AUTO) 7.6 (2.1-6.9); NEUTROPHILS % 79.3 % (38.7-80.0); PLATELET COUNT 242 x10e3/uL (140-360); RED BLOOD COUNT 2.53 x10e6/uL (3.6-5.1); RED CELL DISTRIBUTION WIDTH 19.7 % (11.7-14.4)
[2022-08-15 07:05] LABS: ALBUMIN 1.9 g/dL (3.5-5.0); ALBUMIN/GLOBULIN RATIO 0.5 (0.8-2.0); ANION GAP 13.1 mmol/L (8-16); CREATININE, SERUM 3.58 mg/dL (0.57-1.11); POTASSIUM 4.1 mmol/L (3.5-5.1)
[2022-08-15] MEDS ORDERED: SODIUM CHLORIDE 0.9% 250ML 250 ML ONE (07:49)
[2022-08-15] MEDS ORDERED: ACETAMINOPHEN 325 MG TAB PO PRN (08:45)
[2022-08-15] MEDS: DOCUSATE SODIUM 100 MG CAP PO SCH (09:00)
[2022-08-15] MEDS: FUROSEMIDE 20 MG TAB PO SCH ×2 (09:00→17:00)
[2022-08-15] MEDS: SENNOSIDES 8.6 MG TAB PO SCH (09:00)
[2022-08-15] MEDS: CALCITRIOL 0.25 MCG CAP PO SCH (09:00)
[2022-08-15] MEDS: APIXABAN 5 MG TABLET PO SCH ×2 (09:00→17:00)
[2022-08-15] MEDS ORDERED: FOSFOMYCIN TROMETHAMINE 3 GM PACKET PO ONE (09:30)
[2022-08-15] MEDS: MIDODRINE HCL 5 MG TABLET PO SCH ×3 (10:05→17:23)
[2022-08-15] MEDS: SODIUM BICARBONATE 650 MG TAB PO SCH (10:06)
[2022-08-15] MEDS: METOCLOPRAMIDE HCL 10 MG/2ML VIAL IV SCH ×2 (10:14→17:23)
[2022-08-15] MEDS: LEVOTHYROXINE SODIUM 50 MCG TAB PO SCH (11:46)
[2022-08-15 15:28] LABS: HEMATOCRIT 24.1 % (34.2-44.1); HEMOGLOBIN 7.1 g/dL (12.0-16.0)
[2022-08-16] VITALS (9 sets, daily range): BP systolic 96–104; BP diastolic 30–39
[2022-08-16] MEDS: LEVOTHYROXINE SODIUM 50 MCG TAB PO SCH (05:24)
[2022-08-16 06:29] LABS: BASOPHILS # (AUTO) 0.1 (0.0-0.1); BASOPHILS % 0.6 % (0.0-1.0); EOSINOPHILS # (AUTO) 0.2 (0.0-0.4); EOSINOPHILS % 1.9 % (0.0-6.0); HEMATOCRIT 23.1 % (34.2-44.1); HEMOGLOBIN 7.2 g/dL (12.0-16.0); LYMPHOCYTES # (AUTO) 1.2 (1.0-3.2); LYMPHOCYTES % 13.9 % (18.0-39.1); MEAN CORPUSCULAR HEMOGLOBIN 30.4 pg (28-32); MEAN CORPUSCULAR HGB CONC 31.2 g/dL (31-35); MEAN CORPUSCULAR VOLUME 97.5 fL (81-99); MONOCYTES # (AUTO) 0.7 (0.2-0.8); MONOCYTES % 8.5 % (4.4-11.3); NEUTROPHILS # (AUTO) 6.4 (2.1-6.9); NEUTROPHILS % 74.2 % (38.7-80.0); PLATELET COUNT 223 x10e3/uL (140-360); RED BLOOD COUNT 2.37 x10e6/uL (3.6-5.1); RED CELL DISTRIBUTION WIDTH 20.5 % (11.7-14.4)
[2022-08-16 06:57] LABS: % IRON SATURATION 40 % (15-50); ALBUMIN/GLOBULIN RATIO 0.6 (0.8-2.0); ALKALINE PHOSPHATASE 55 IU/L (40-150); BLOOD UREA NITROGEN 22 mg/dL (7-26); BUN/CREATININE RATIO 5 (6-25); CALCIUM 7.9 mg/dL (8.4-10.2); CARBON DIOXIDE 25 mmol/L (22-29); CHLORIDE 101 mmol/L (98-107); CREATININE, SERUM 4.55 mg/dL (0.57-1.11); GLUCOSE 67 mg/dL (74-118); IRON 49 ug/dL (50-170); SODIUM 138 mmol/L (136-145); TOTAL IRON BINDING CAPACITY 123 ug/dL (261-478); TRANSFERRIN 88 mg/dL (180-382)
[2022-08-16 06:58] LABS: ALANINE AMINOTRANSFERASE < 6 IU/L (0-55)
[2022-08-16 07:19] LABS: FERRITIN 346.05 ng/mL (4.63-204.00); THYROID STIMULATING HORMONE 7.887 uIU/mL (0.350-4.940)
[2022-08-16] MEDS ORDERED: SODIUM CHLORIDE 0.9% 250ML 250 ML IV ONE (08:30)
[2022-08-16] MEDS: CALCITRIOL 0.25 MCG CAP PO SCH (08:40)
[2022-08-16] MEDS: METOCLOPRAMIDE HCL 10 MG/2ML VIAL IV SCH ×2 (08:40→17:05)
[2022-08-16] MEDS: SODIUM BICARBONATE 650 MG TAB PO SCH (08:40)
[2022-08-16] MEDS: MIDODRINE HCL 5 MG TABLET PO SCH ×4 (08:40→17:05)
[2022-08-16] MEDS: FUROSEMIDE 20 MG TAB PO SCH ×2 (08:40→17:00)
[2022-08-16] MEDS: APIXABAN 5 MG TABLET PO SCH (09:00)
[2022-08-16] MEDS: DOCUSATE SODIUM 100 MG CAP PO SCH (09:00)
[2022-08-16] MEDS: SENNOSIDES 8.6 MG TAB PO SCH (09:00)
[2022-08-16] MEDS ORDERED: SODIUM CHLORIDE 0.9% 250ML 250 ML ONE ×2 (09:12→12:35)
[2022-08-16] MEDS: METHOCARBAMOL 750 MG TAB PO PRN ×2 (11:47→17:07)
[2022-08-16] MEDS ORDERED: LIDOCAINE 1% 10 ML MULTIDOSE VIAL IJ ONE (12:22)
[2022-08-17] VITALS (7 sets, daily range): BP systolic 102–115; BP diastolic 34–64
[2022-08-17] MEDS: LEVOTHYROXINE SODIUM 50 MCG TAB PO SCH (05:46)
[2022-08-17 06:08] LABS: BASOPHILS # (AUTO) 0.1 (0.0-0.1); BASOPHILS % 0.5 % (0.0-1.0); EOSINOPHILS # (AUTO) 0.2 (0.0-0.4); EOSINOPHILS % 2.1 % (0.0-6.0); HEMATOCRIT 27.9 % (34.2-44.1); HEMOGLOBIN 8.7 g/dL (12.0-16.0); LYMPHOCYTES % 11.2 % (18.0-39.1); MEAN CORPUSCULAR HEMOGLOBIN 29.5 pg (28-32); MEAN CORPUSCULAR HGB CONC 31.2 g/dL (31-35); MEAN CORPUSCULAR VOLUME 94.6 fL (81-99); MONOCYTES # (AUTO) 0.6 (0.2-0.8); MONOCYTES % 6.8 % (4.4-11.3); NEUTROPHILS # (AUTO) 7.2 (2.1-6.9); NEUTROPHILS % 78.4 % (38.7-80.0); PLATELET COUNT 257 x10e3/uL (140-360); RED BLOOD COUNT 2.95 x10e6/uL (3.6-5.1)
[2022-08-17 06:38] LABS: ALBUMIN 1.9 g/dL (3.5-5.0); ALBUMIN/GLOBULIN RATIO 0.5 (0.8-2.0); ALKALINE PHOSPHATASE 56 IU/L (40-150); BLOOD UREA NITROGEN 27 mg/dL (7-26); BUN/CREATININE RATIO 6 (6-25); CALCIUM 7.9 mg/dL (8.4-10.2); CARBON DIOXIDE 22 mmol/L (22-29); CHLORIDE 103 mmol/L (98-107); CREATININE, SERUM 4.81 mg/dL (0.57-1.11); GLUCOSE 74 mg/dL (74-118); MAGNESIUM 1.7 MG/DL (1.3-2.1); SODIUM 138 mmol/L (136-145)
[2022-08-17 06:39] LABS: ALANINE AMINOTRANSFERASE < 6 IU/L (0-55)
[2022-08-17] MEDS ORDERED: SODIUM CHLORIDE 0.9% 0 ML ONE (08:30)
[2022-08-17] MEDS: SODIUM BICARBONATE 650 MG TAB PO SCH (09:00)
[2022-08-17] MEDS: CALCITRIOL 0.25 MCG CAP PO SCH (09:00)
[2022-08-17] MEDS: SENNOSIDES 8.6 MG TAB PO SCH (09:00)
[2022-08-17] MEDS: DOCUSATE SODIUM 100 MG CAP PO SCH (09:00)
[2022-08-17] MEDS: FUROSEMIDE 20 MG TAB PO SCH ×2 (09:00→17:00)
[2022-08-17] MEDS: METOCLOPRAMIDE HCL 10 MG/2ML VIAL IV SCH ×2 (09:01→18:58)
[2022-08-17] MEDS: MIDODRINE HCL 5 MG TABLET PO SCH ×3 (09:01→16:08)
[2022-08-17] MEDS: SODIUM FERRIC GLUCONATE COMPLX 125 MG in SODIUM CHLORIDE 0.9% 100 ML IV SCH (09:58)
[2022-08-17] MEDS ORDERED: ALBUMIN 25% 12.5GM 0.25 GM/ML BTL IV PRN (13:15)
[2022-08-17] MEDS ORDERED: SODIUM CHLORIDE 0.9% 1000ML 2,000 ML IV PRN (13:15)
[2022-08-17] MEDS ORDERED: EPOETIN ALFA-EPBX 10,000 UNIT/ML VIAL SC SCH (17:00)
[2022-08-17] MEDS ORDERED: Vancomycin IV 1 GM in SODIUM CHLORIDE 0.9% 250ML 250 ML IV SCH (18:00)
[2022-08-17] MEDS: DAPTOMYCIN 500mg 10ML 500 MG in SODIUM CHLORIDE 0.9% 100 ML IV SCH (18:40)
[2022-08-17] MEDS ORDERED: SODIUM CHLORIDE 0.9% 250ML 250 ML ONE (18:47)
[2022-08-17] MEDS: APIXAB 2.5 MG TABLET PO SCH (18:57)
[2022-08-18] VITALS (9 sets, daily range): BP systolic 98–121; BP diastolic 30–66
[2022-08-18] MEDS: LEVOTHYROXINE SODIUM 50 MCG TAB PO SCH (05:29)
[2022-08-18 05:47] LABS: BASOPHILS % 0.5 % (0.0-1.0); EOSINOPHILS # (AUTO) 0.1 (0.0-0.4); EOSINOPHILS % 1.3 % (0.0-6.0); HEMATOCRIT 30.1 % (34.2-44.1); HEMOGLOBIN 9.4 g/dL (12.0-16.0); LYMPHOCYTES # (AUTO) 1.1 (1.0-3.2); LYMPHOCYTES % 14.1 % (18.0-39.1); MEAN CORPUSCULAR HEMOGLOBIN 28.9 pg (28-32); MEAN CORPUSCULAR HGB CONC 31.2 g/dL (31-35); MEAN CORPUSCULAR VOLUME 92.6 fL (81-99); MONOCYTES # (AUTO) 0.6 (0.2-0.8); MONOCYTES % 7.1 % (4.4-11.3); NEUTROPHILS # (AUTO) 5.9 (2.1-6.9); NEUTROPHILS % 76.4 % (38.7-80.0); PLATELET COUNT 294 x10e3/uL (140-360); RED BLOOD COUNT 3.25 x10e6/uL (3.6-5.1); RED CELL DISTRIBUTION WIDTH 19.3 % (11.7-14.4)
[2022-08-18 06:10] LABS: ALBUMIN/GLOBULIN RATIO 0.5 (0.8-2.0); ALKALINE PHOSPHATASE 59 IU/L (40-150); ANION GAP 15.4 mmol/L (8-16); BLOOD UREA NITROGEN 9 mg/dL (7-26); BUN/CREATININE RATIO 4 (6-25); CALCIUM 8.5 mg/dL (8.4-10.2); CARBON DIOXIDE 28 mmol/L (22-29); CHLORIDE 102 mmol/L (98-107); CREATININE, SERUM 2.52 mg/dL (0.57-1.11); GLUCOSE 79 mg/dL (74-118); MAGNESIUM 1.7 MG/DL (1.3-2.1); POTASSIUM 3.4 mmol/L (3.5-5.1); SODIUM 142 mmol/L (136-145)
[2022-08-18 06:12] LABS: ALANINE AMINOTRANSFERASE < 6 IU/L (0-55)
[2022-08-18] MEDS ORDERED: POTASSIUM CHLORIDE 20 MEQ TAB CR PO ONE (09:15)
[2022-08-18] MEDS: SODIUM FERRIC GLUCONATE COMPLX 125 MG in SODIUM CHLORIDE 0.9% 100 ML IV SCH (09:27)
[2022-08-18] MEDS: MIDODRINE HCL 5 MG TABLET PO SCH ×3 (09:28→18:34)
[2022-08-18] MEDS: METOCLOPRAMIDE HCL 10 MG/2ML VIAL IV SCH ×2 (09:28→18:35)
[2022-08-18] MEDS: DOCUSATE SODIUM 100 MG CAP PO SCH (09:31)
[2022-08-18] MEDS: BALSAM PERU/CASTOR OIL 60 GM OINT...G. TP SCH (09:32)
[2022-08-18] MEDS: SENNOSIDES 8.6 MG TAB PO SCH (09:32)
[2022-08-18] MEDS: APIXAB 2.5 MG TABLET PO SCH ×2 (09:32→18:34)
[2022-08-18] MEDS: SODIUM BICARBONATE 650 MG TAB PO SCH (09:32)
[2022-08-18] MEDS: CALCITRIOL 0.25 MCG CAP PO SCH (09:32)
[2022-08-18] MEDS: FUROSEMIDE 20 MG TAB PO SCH ×2 (09:32→18:34)
[2022-08-18] MEDS ORDERED: MAGNESIUM OXIDE 400 MG TAB PO ONE (16:30)
[2022-08-19] VITALS: BP 113/35
[2022-08-19 04:00] VITALS: BP 106/30
[2022-08-19] MEDS: LEVOTHYROXINE SODIUM 50 MCG TAB PO SCH (05:37)
[2022-08-19 06:04] LABS: BASOPHILS # (AUTO) 0.1 (0.0-0.1); BASOPHILS % 0.6 % (0.0-1.0); EOSINOPHILS # (AUTO) 0.1 (0.0-0.4); EOSINOPHILS % 1.6 % (0.0-6.0); HEMATOCRIT 31.8 % (34.2-44.1); HEMOGLOBIN 9.3 g/dL (12.0-16.0); LYMPHOCYTES # (AUTO) 1.2 (1.0-3.2); LYMPHOCYTES % 14.7 % (18.0-39.1); MEAN CORPUSCULAR HEMOGLOBIN 28.4 pg (28-32); MEAN CORPUSCULAR HGB CONC 29.2 g/dL (31-35); MONOCYTES # (AUTO) 0.6 (0.2-0.8); MONOCYTES % 7.5 % (4.4-11.3); NEUTROPHILS # (AUTO) 6.3 (2.1-6.9); NEUTROPHILS % 74.9 % (38.7-80.0); PLATELET COUNT 265 x10e3/uL (140-360); RED BLOOD COUNT 3.28 x10e6/uL (3.6-5.1); RED CELL DISTRIBUTION WIDTH 19.5 % (11.7-14.4)
[2022-08-19 06:40] LABS: ANION GAP 16.5 mmol/L (8-16); CALCIUM 8.1 mg/dL (8.4-10.2); CREATININE, SERUM 3.53 mg/dL (0.57-1.11); POTASSIUM 3.5 mmol/L (3.5-5.1)
[2022-08-19 07:00] LABS: PLATELET ESTIMATE ADEQUATE; PLATELET MORPHOLOGY COMMENT NORMAL; RBC MORPHOLOGY COMMENT ABNORMAL
[2022-08-19 07:01] LABS: ANISOCYTOSIS MODERATE; HYPOCHROMASIA SLIGHT
[2022-08-19 08:00] VITALS: BP 106/30
[2022-08-19] MEDS: MIDODRINE HCL 5 MG TABLET PO SCH ×3 (08:08→16:36)
[2022-08-19] MEDS: DOCUSATE SODIUM 100 MG CAP PO SCH (09:00)
[2022-08-19] MEDS: SENNOSIDES 8.6 MG TAB PO SCH (09:00)
[2022-08-19] MEDS: METOCLOPRAMIDE HCL 10 MG/2ML VIAL IV SCH ×2 (09:46→16:37)
[2022-08-19] MEDS: FUROSEMIDE 20 MG TAB PO SCH ×2 (09:50→16:37)
[2022-08-19] MEDS: CALCITRIOL 0.25 MCG CAP PO SCH (09:50)
[2022-08-19] MEDS: APIXAB 2.5 MG TABLET PO SCH ×2 (09:50→16:38)
[2022-08-19 09:51] VITALS: BP 116/37
[2022-08-19] MEDS: SODIUM BICARBONATE 650 MG TAB PO SCH (09:51)
[2022-08-19] MEDS: BALSAM PERU/CASTOR OIL 60 GM OINT...G. TP SCH (09:51)
[2022-08-19 11:47] VITALS: BP 97/42
[2022-08-19] MEDS: SODIUM FERRIC GLUCONATE COMPLX 125 MG in SODIUM CHLORIDE 0.9% 100 ML IV SCH (13:25)
[2022-08-19] MEDS ORDERED: SODIUM CHLORIDE 0.9% 100 ML ONE (16:36)
[2022-08-19] MEDS: DAPTOMYCIN 500mg 10ML 500 MG in SODIUM CHLORIDE 0.9% 100 ML IV SCH (16:37)
[2022-08-19 16:45] VITALS: BP 113/36
[2022-08-19] MEDS: MELATONIN 5 MG TABLET PO SCH (23:19)
[2022-08-20] VITALS (8 sets, daily range): BP systolic 102–118; BP diastolic 31–58
[2022-08-20] MEDS: LEVOTHYROXINE SODIUM 50 MCG TAB PO SCH (05:43)
[2022-08-20 05:46] LABS: BASOPHILS # (AUTO) 0.1 (0.0-0.1); BASOPHILS % 0.7 % (0.0-1.0); EOSINOPHILS # (AUTO) 0.2 (0.0-0.4); EOSINOPHILS % 2.7 % (0.0-6.0); HEMOGLOBIN 8.3 g/dL (12.0-16.0); LYMPHOCYTES % 13.7 % (18.0-39.1); MEAN CORPUSCULAR HEMOGLOBIN 28.3 pg (28-32); MEAN CORPUSCULAR HGB CONC 29.6 g/dL (31-35); MEAN CORPUSCULAR VOLUME 95.6 fL (81-99); MONOCYTES # (AUTO) 0.5 (0.2-0.8); MONOCYTES % 7.6 % (4.4-11.3); NEUTROPHILS # (AUTO) 5.2 (2.1-6.9); NEUTROPHILS % 74.7 % (38.7-80.0); PLATELET COUNT 260 x10e3/uL (140-360); RED BLOOD COUNT 2.93 x10e6/uL (3.6-5.1)
[2022-08-20 06:19] LABS: ALBUMIN 2.2 g/dL (3.5-5.0); ALBUMIN/GLOBULIN RATIO 0.6 (0.8-2.0); ALKALINE PHOSPHATASE 48 IU/L (40-150); ANION GAP 11.4 mmol/L (8-16); BLOOD UREA NITROGEN 5 mg/dL (7-26); BUN/CREATININE RATIO 2 (6-25); CALCIUM 8.3 mg/dL (8.4-10.2); CARBON DIOXIDE 29 mmol/L (22-29); CHLORIDE 103 mmol/L (98-107); CREATININE, SERUM 2.14 mg/dL (0.57-1.11); GLUCOSE 73 mg/dL (74-118); MAGNESIUM 1.8 MG/DL (1.3-2.1); POTASSIUM 3.4 mmol/L (3.5-5.1); SODIUM 140 mmol/L (136-145)
[2022-08-20 06:20] LABS: ALANINE AMINOTRANSFERASE < 6 IU/L (0-55)
[2022-08-20 07:29] LABS: ANISOCYTOSIS MODERATE; HYPOCHROMASIA SLIGHT; PLATELET ESTIMATE ADEQUATE; PLATELET MORPHOLOGY COMMENT NORMAL; RBC MORPHOLOGY COMMENT ABNORMAL
[2022-08-20] MEDS ORDERED: SODIUM CHLORIDE 0.9% 100 ML ONE (08:39)
[2022-08-20] MEDS: SENNOSIDES 8.6 MG TAB PO SCH (09:00)
[2022-08-20] MEDS: DOCUSATE SODIUM 100 MG CAP PO SCH (09:00)
[2022-08-20] MEDS: CALCITRIOL 0.25 MCG CAP PO SCH (09:19)
[2022-08-20] MEDS: SODIUM BICARBONATE 650 MG TAB PO SCH (09:19)
[2022-08-20] MEDS: APIXAB 2.5 MG TABLET PO SCH ×2 (09:19→16:52)
[2022-08-20] MEDS: FUROSEMIDE 20 MG TAB PO SCH ×2 (09:19→16:53)
[2022-08-20] MEDS: MIDODRINE HCL 5 MG TABLET PO SCH ×3 (09:20→16:52)
[2022-08-20] MEDS: METOCLOPRAMIDE HCL 10 MG/2ML VIAL IV SCH ×2 (09:20→16:53)
[2022-08-20] MEDS: BALSAM PERU/CASTOR OIL 60 GM OINT...G. TP SCH (09:23)
[2022-08-20] MEDS: MELATONIN 5 MG TABLET PO SCH (20:56)
[2022-08-21] VITALS (7 sets, daily range): BP systolic 106–114; BP diastolic 34–45
[2022-08-21] MEDS: LEVOTHYROXINE SODIUM 50 MCG TAB PO SCH (05:18)
[2022-08-21 07:34] LABS: BASOPHILS # (AUTO) 0.1 (0.0-0.1); BASOPHILS % 0.6 % (0.0-1.0); EOSINOPHILS # (AUTO) 0.2 (0.0-0.4); EOSINOPHILS % 2.7 % (0.0-6.0); HEMATOCRIT 29.3 % (34.2-44.1); HEMOGLOBIN 8.8 g/dL (12.0-16.0); LYMPHOCYTES # (AUTO) 1.1 (1.0-3.2); LYMPHOCYTES % 14.4 % (18.0-39.1); MEAN CORPUSCULAR HEMOGLOBIN 28.9 pg (28-32); MEAN CORPUSCULAR VOLUME 96.4 fL (81-99); MONOCYTES # (AUTO) 0.5 (0.2-0.8); MONOCYTES % 6.4 % (4.4-11.3); NEUTROPHILS # (AUTO) 5.8 (2.1-6.9); NEUTROPHILS % 75.4 % (38.7-80.0); PLATELET COUNT 255 x10e3/uL (140-360); RED BLOOD COUNT 3.04 x10e6/uL (3.6-5.1); RED CELL DISTRIBUTION WIDTH 18.7 % (11.7-14.4)
[2022-08-21 08:00] LABS: ALBUMIN 2.2 g/dL (3.5-5.0); ALBUMIN/GLOBULIN RATIO 0.6 (0.8-2.0); ALKALINE PHOSPHATASE 52 IU/L (40-150); ANION GAP 13.4 mmol/L (8-16); BLOOD UREA NITROGEN 7 mg/dL (7-26); BUN/CREATININE RATIO 2 (6-25); CALCIUM 8.2 mg/dL (8.4-10.2); CARBON DIOXIDE 27 mmol/L (22-29); CHLORIDE 102 mmol/L (98-107); GLUCOSE 71 mg/dL (74-118); MAGNESIUM 1.8 MG/DL (1.3-2.1); POTASSIUM 3.4 mmol/L (3.5-5.1); SODIUM 139 mmol/L (136-145)
[2022-08-21 08:01] LABS: ALANINE AMINOTRANSFERASE < 6 IU/L (0-55)
[2022-08-21] MEDS: METOCLOPRAMIDE HCL 10 MG/2ML VIAL IV SCH ×2 (08:28→16:34)
[2022-08-21] MEDS: APIXAB 2.5 MG TABLET PO SCH ×2 (08:28→16:33)
[2022-08-21] MEDS: MIDODRINE HCL 5 MG TABLET PO SCH ×3 (08:28→16:33)
[2022-08-21] MEDS: FUROSEMIDE 20 MG TAB PO SCH ×2 (08:28→16:35)
[2022-08-21] MEDS: CALCITRIOL 0.25 MCG CAP PO SCH (08:28)
[2022-08-21] MEDS: BALSAM PERU/CASTOR OIL 60 GM OINT...G. TP SCH (08:29)
[2022-08-21] MEDS: SODIUM BICARBONATE 650 MG TAB PO SCH (08:29)
[2022-08-21] MEDS: SENNOSIDES 8.6 MG TAB PO SCH (09:00)
[2022-08-21] MEDS: DOCUSATE SODIUM 100 MG CAP PO SCH (09:00)
[2022-08-21] MEDS ORDERED: ALBUMIN 25% 12.5GM 0.25 GM/ML BTL IV PRN (11:45)
[2022-08-21] MEDS ORDERED: SODIUM CHLORIDE 0.9% 1000ML 2,000 ML IV PRN (11:45)
[2022-08-21] MEDS ORDERED: SODIUM CHLORIDE 0.9% 250ML 500 ML IV PRN (11:45)
[2022-08-21] MEDS ORDERED: MAGNESIUM OXIDE 400 MG TAB PO ONE (13:15)
[2022-08-21] MEDS: DAPTOMYCIN 500mg 10ML 500 MG in SODIUM CHLORIDE 0.9% 100 ML IV SCH (16:34)
[2022-08-21] MEDS: MELATONIN 5 MG TABLET PO SCH (20:48)
[2022-08-22] VITALS (7 sets, daily range): BP systolic 110–120; BP diastolic 34–48
[2022-08-22] MEDS: LEVOTHYROXINE SODIUM 50 MCG TAB PO SCH (05:02)
[2022-08-22 07:45] LABS: BASOPHILS # (AUTO) 0.1 (0.0-0.1); BASOPHILS % 0.7 % (0.0-1.0); EOSINOPHILS # (AUTO) 0.2 (0.0-0.4); EOSINOPHILS % 2.4 % (0.0-6.0); HEMATOCRIT 30.6 % (34.2-44.1); HEMOGLOBIN 9.1 g/dL (12.0-16.0); LYMPHOCYTES # (AUTO) 0.9 (1.0-3.2); LYMPHOCYTES % 11.6 % (18.0-39.1); MEAN CORPUSCULAR HEMOGLOBIN 28.8 pg (28-32); MEAN CORPUSCULAR HGB CONC 29.7 g/dL (31-35); MEAN CORPUSCULAR VOLUME 96.8 fL (81-99); MONOCYTES # (AUTO) 0.6 (0.2-0.8); MONOCYTES % 7.8 % (4.4-11.3); NEUTROPHILS # (AUTO) 5.8 (2.1-6.9); NEUTROPHILS % 76.8 % (38.7-80.0); PLATELET COUNT 243 x10e3/uL (140-360); RED BLOOD COUNT 3.16 x10e6/uL (3.6-5.1)
[2022-08-22 08:18] LABS: ALANINE AMINOTRANSFERASE 8 IU/L (0-55); ALBUMIN 2.4 g/dL (3.5-5.0); ALBUMIN/GLOBULIN RATIO 0.6 (0.8-2.0); ALKALINE PHOSPHATASE 51 IU/L (40-150); ANION GAP 15.6 mmol/L (8-16); BLOOD UREA NITROGEN < 5 mg/dL (7-26); CALCIUM 8.5 mg/dL (8.4-10.2); CARBON DIOXIDE 26 mmol/L (22-29); CHLORIDE 104 mmol/L (98-107); CREATININE, SERUM 2.23 mg/dL (0.57-1.11); GLUCOSE 67 mg/dL (74-118); POTASSIUM 3.6 mmol/L (3.5-5.1); SODIUM 142 mmol/L (136-145)
[2022-08-22 08:19] LABS: BUN/CREATININE RATIO 2 (6-25)
[2022-08-22] MEDS: APIXAB 2.5 MG TABLET PO SCH (08:27)
[2022-08-22] MEDS: FUROSEMIDE 20 MG TAB PO SCH ×2 (08:27→16:50)
[2022-08-22] MEDS: CALCITRIOL 0.25 MCG CAP PO SCH (08:27)
[2022-08-22] MEDS: MIDODRINE HCL 5 MG TABLET PO SCH ×3 (08:28→16:50)
[2022-08-22] MEDS: METOCLOPRAMIDE HCL 10 MG/2ML VIAL IV SCH ×2 (08:28→16:50)
[2022-08-22] MEDS: SODIUM BICARBONATE 650 MG TAB PO SCH (08:29)
[2022-08-22] MEDS: SENNOSIDES 8.6 MG TAB PO SCH (08:36)
[2022-08-22] MEDS: DOCUSATE SODIUM 100 MG CAP PO SCH (08:36)
[2022-08-22] MEDS: BALSAM PERU/CASTOR OIL 60 GM OINT...G. TP SCH (08:36)
[2022-08-22] MEDS ORDERED: ONDANSETRON HCL INJ 2MG/ML 2ML 2 MG/ML VIAL IV PRN (09:45)
[2022-08-22] MEDS: AMIODARONE HCL 200 MG TAB PO SCH (10:06)
[2022-08-22] MEDS: MELATONIN 5 MG TABLET PO SCH (21:01)
[2022-08-23] VITALS (8 sets, daily range): BP systolic 101–112; BP diastolic 32–37
[2022-08-23] MEDS: LEVOTHYROXINE SODIUM 50 MCG TAB PO SCH (05:57)
[2022-08-23 06:37] LABS: BASOPHILS # (AUTO) 0.1 (0.0-0.1); BASOPHILS % 0.9 % (0.0-1.0); EOSINOPHILS # (AUTO) 0.2 (0.0-0.4); EOSINOPHILS % 3.1 % (0.0-6.0); HEMATOCRIT 30.9 % (34.2-44.1); LYMPHOCYTES # (AUTO) 1.2 (1.0-3.2); LYMPHOCYTES % 17.7 % (18.0-39.1); MEAN CORPUSCULAR HEMOGLOBIN 28.8 pg (28-32); MEAN CORPUSCULAR HGB CONC 29.1 g/dL (31-35); MONOCYTES # (AUTO) 0.6 (0.2-0.8); MONOCYTES % 8.6 % (4.4-11.3); NEUTROPHILS # (AUTO) 4.5 (2.1-6.9); NEUTROPHILS % 68.9 % (38.7-80.0); PLATELET COUNT 233 x10e3/uL (140-360); RED BLOOD COUNT 3.12 x10e6/uL (3.6-5.1); RED CELL DISTRIBUTION WIDTH 19.3 % (11.7-14.4)
[2022-08-23 07:04] LABS: ALBUMIN 2.3 g/dL (3.5-5.0); ALBUMIN/GLOBULIN RATIO 0.6 (0.8-2.0); ALKALINE PHOSPHATASE 49 IU/L (40-150); ANION GAP 12.7 mmol/L (8-16); BLOOD UREA NITROGEN 6 mg/dL (7-26); BUN/CREATININE RATIO 2 (6-25); CALCIUM 8.3 mg/dL (8.4-10.2); CARBON DIOXIDE 27 mmol/L (22-29); CHLORIDE 104 mmol/L (98-107); CREATININE, SERUM 3.25 mg/dL (0.57-1.11); GLUCOSE 75 mg/dL (74-118); POTASSIUM 3.7 mmol/L (3.5-5.1); SODIUM 140 mmol/L (136-145)
[2022-08-23 07:11] LABS: ALANINE AMINOTRANSFERASE < 6 IU/L (0-55)
[2022-08-23 07:46] LABS: ANISOCYTOSIS MODERATE; HYPOCHROMASIA SLIGHT; PLATELET ESTIMATE ADEQUATE; PLATELET MORPHOLOGY COMMENT NORMAL; RBC MORPHOLOGY COMMENT ABNORMAL
[2022-08-23] MEDS: DOCUSATE SODIUM 100 MG CAP PO SCH (08:33)
[2022-08-23] MEDS: AMIODARONE HCL 200 MG TAB PO SCH (08:33)
[2022-08-23] MEDS: SODIUM BICARBONATE 650 MG TAB PO SCH (08:34)
[2022-08-23] MEDS: FUROSEMIDE 20 MG TAB PO SCH ×2 (08:34→16:30)
[2022-08-23] MEDS: SENNOSIDES 8.6 MG TAB PO SCH (08:34)
[2022-08-23] MEDS: BALSAM PERU/CASTOR OIL 60 GM OINT...G. TP SCH (08:34)
[2022-08-23] MEDS: CALCITRIOL 0.25 MCG CAP PO SCH (08:34)
[2022-08-23] MEDS: MIDODRINE HCL 5 MG TABLET PO SCH ×3 (08:42→16:30)
[2022-08-23] MEDS: METOCLOPRAMIDE HCL 10 MG/2ML VIAL IV SCH ×2 (08:43→16:30)
[2022-08-23] MEDS ORDERED: AMIODARONE HCL 200 MG TAB PO SCH (09:00)
[2022-08-23] MEDS ORDERED: MIDAZOLAM HCL 2 MG/2 ML VIAL ONE ×2 (12:19→12:42)
[2022-08-23] MEDS ORDERED: FENTANYL CITRATE/PF 100MCG/2 ML INJ ONE (12:20)
[2022-08-23] MEDS ORDERED: BENZOCAINE 20% SPR 60 ML CAN ONE (12:20)
[2022-08-23] MEDS ORDERED: SODIUM CHLORIDE 0.9% 1000ML 1,000 ML ONE (12:20)
[2022-08-23] MEDS: MELATONIN 5 MG TABLET PO SCH (21:00)
[2022-08-24] VITALS (7 sets, daily range): BP systolic 101–115; BP diastolic 32–45
[2022-08-24 06:17] LABS: BASOPHILS # (AUTO) 0.1 (0.0-0.1); BASOPHILS % 0.8 % (0.0-1.0); EOSINOPHILS # (AUTO) 0.2 (0.0-0.4); EOSINOPHILS % 2.9 % (0.0-6.0); HEMATOCRIT 29.3 % (34.2-44.1); LYMPHOCYTES # (AUTO) 1.1 (1.0-3.2); LYMPHOCYTES % 16.3 % (18.0-39.1); MEAN CORPUSCULAR HEMOGLOBIN 30.9 pg (28-32); MEAN CORPUSCULAR HGB CONC 30.7 g/dL (31-35); MEAN CORPUSCULAR VOLUME 100.7 fL (81-99); MONOCYTES # (AUTO) 0.5 (0.2-0.8); MONOCYTES % 7.6 % (4.4-11.3); NEUTROPHILS # (AUTO) 4.6 (2.1-6.9); NEUTROPHILS % 71.9 % (38.7-80.0); PLATELET COUNT 195 x10e3/uL (140-360); RED BLOOD COUNT 2.91 x10e6/uL (3.6-5.1); RED CELL DISTRIBUTION WIDTH 20.4 % (11.7-14.4)
[2022-08-24] MEDS: LEVOTHYROXINE SODIUM 50 MCG TAB PO SCH (06:46)
[2022-08-24 06:47] LABS: ALBUMIN 2.3 g/dL (3.5-5.0); ALBUMIN/GLOBULIN RATIO 0.6 (0.8-2.0); ALKALINE PHOSPHATASE 49 IU/L (40-150); ANION GAP 11.9 mmol/L (8-16); BLOOD UREA NITROGEN 9 mg/dL (7-26); BUN/CREATININE RATIO 2 (6-25); CALCIUM 8.4 mg/dL (8.4-10.2); CARBON DIOXIDE 27 mmol/L (22-29); CHLORIDE 104 mmol/L (98-107); CREATININE, SERUM 4.04 mg/dL (0.57-1.11); GLUCOSE 77 mg/dL (74-118); MAGNESIUM 1.8 MG/DL (1.3-2.1); POTASSIUM 3.9 mmol/L (3.5-5.1); SODIUM 139 mmol/L (136-145)
[2022-08-24 06:49] LABS: ALANINE AMINOTRANSFERASE < 6 IU/L (0-55)
[2022-08-24] MEDS: CALCITRIOL 0.25 MCG CAP PO SCH (09:10)
[2022-08-24] MEDS: SODIUM BICARBONATE 650 MG TAB PO SCH (09:10)
[2022-08-24] MEDS: SENNOSIDES 8.6 MG TAB PO SCH (09:10)
[2022-08-24] MEDS: FUROSEMIDE 20 MG TAB PO SCH ×2 (09:10→16:16)
[2022-08-24] MEDS: MIDODRINE HCL 5 MG TABLET PO SCH ×3 (09:10→16:16)
[2022-08-24] MEDS: AMIODARONE HCL 200 MG TAB PO SCH (09:11)
[2022-08-24] MEDS: APIXAB 2.5 MG TABLET PO SCH ×2 (09:12→16:16)
[2022-08-24] MEDS: METOCLOPRAMIDE HCL 10 MG/2ML VIAL IV SCH ×2 (09:12→16:16)
[2022-08-24] MEDS: BALSAM PERU/CASTOR OIL 60 GM OINT...G. TP SCH (09:13)
[2022-08-24] MEDS: DOCUSATE SODIUM 100 MG CAP PO SCH (09:13)
[2022-08-24] MEDS: DAPTOMYCIN 500mg 10ML 500 MG in SODIUM CHLORIDE 0.9% 100 ML IV SCH (16:13)
[2022-08-24] MEDS: MELATONIN 5 MG TABLET PO SCH (20:31)
== END 2022-08-25 05:11 | disposition short-term general hospital (02) | DRG 306 ==
LOC: ER 16:27 → ERHOLD 20:19 → MED/SURG2 22:38 → OBSVTOIN 08-16 08:43
PROVIDERS: ADMIT Internal Medicine; ATTEND Internal Medicine
PROC: 30233N1 Transfusion of Nonautologous Red Blood Cells into Peripheral Vein, Percutaneous Approach (ICD-10-PCS; 2022-08-16)
PROC: 5A1D70Z Performance of Urinary Filtration, Intermittent, Less than 6 Hours Per Day (ICD-10-PCS; principal; 2022-08-17)
PROC: 0JPT3WZ Removal of Totally Implantable Vascular Access Device from Trunk Subcutaneous Tissue and Fascia, Percutaneous Approach (ICD-10-PCS; 2022-08-17)
PROC: B24BZZ4 Ultrasonography of Heart with Aorta, Transesophageal (ICD-10-PCS; 2022-08-23)
DX: I35.8 Other nonrheumatic aortic valve disorders (principal); I33.0 Acute and subacute infective endocarditis; N18.6 End stage renal disease; T83.511A Infection and inflammatory reaction due to indwelling urethral catheter, initial encounter; T80.211A Bloodstream infection due to central venous catheter, initial encounter; I12.0 Hypertensive chronic kidney disease with stage 5 chronic kidney disease or end stage renal disease; Z16.21 Resistance to vancomycin; T82.7XXA Infection and inflammatory reaction due to other cardiac and vascular devices, implants and grafts, initial encounter; N39.0 Urinary tract infection, site not specified; Z68.41 Body mass index [BMI] 40.0-44.9, adult; R78.81 Bacteremia; I48.0 Paroxysmal atrial fibrillation; B96.1 Klebsiella pneumoniae [K. pneumoniae] as the cause of diseases classified elsewhere; E03.9 Hypothyroidism, unspecified; D63.1 Anemia in chronic kidney disease; D46.9 Myelodysplastic syndrome, unspecified; E66.01 Morbid (severe) obesity due to excess calories; D50.0 Iron deficiency anemia secondary to blood loss (chronic); L89.620 Pressure ulcer of left heel, unstageable; L89.616 Pressure-induced deep tissue damage of right heel; B95.2 Enterococcus as the cause of diseases classified elsewhere; D50.9 Iron deficiency anemia, unspecified; I95.9 Hypotension, unspecified; E87.6 Hypokalemia; E83.42 Hypomagnesemia; Z99.2 Dependence on renal dialysis; Z79.01 Long term (current) use of anticoagulants; Z20.822 Contact with and (suspected) exposure to COVID-19; Z79.899 Other long term (current) drug therapy; Z88.5 Allergy status to narcotic agent; Z88.0 Allergy status to penicillin; Z88.8 Allergy status to other drugs, medicaments and biological substances; Z90.49 Acquired absence of other specified parts of digestive tract; Z60.2 Problems related to living alone
CPT/HCPCS: 36415; 36590; 71045; 74470; 80048; 80053; 80202; 81001; 82550; 82553; 82607; 82728; 82746; 83540; 83605; 83735; 83880; 84439; 84443; 84466; 84484; 85014; 85018; 85025; 85610; 85730; 86706; 86850; 86900; 86920; 87040; 87070; 87071; 87086; 87186; 87205; 87340; 93005; 93306; 93312; 93320; 93325; 93355; 99152; 99252; 99285; G0378; J0696; J2250; J2405; J2765; J2916; J3010; J3370; J7030; J7040; J7050; P9016